=== PATIENT | female | born 1935 | race Caucasian/White ===

== ENCOUNTER 2020-04-24 10:26 | Outpatient (CLI) | payer MEDICARE ==
--- NOTE | 2020-04-24 11:54 | RAD ---
XR Chest Pa Lat STANDARD HISTORY: Weight loss COMPARISON: 08/31/2006 FINDINGS: The heart size is at upper limits of normal. The aorta is tortuous. Mild Chronic parenchyma l changes again seen. The lungs are well expanded without focal areas of consolidation, pneumothorax or pleural effusions. There are surgical clips in the right axilla and upper thorax. The re are compression fractures in the lower thoracic spine with changes of vertebroplasty IMPRESSION: No radiographic evidence of acute cardiopulmonary process.
--- NOTE | 2020-04-24 12:46 | RAD ---
Exam: 3 views thoracic spine HISTORY: Kyphosis. COMPARISON: 07/14/2007. FINDINGS: AP, lateral, and swimmer's view of the thoracic spine are submitted for interpretation. Vertebra plana with previous vertebroplasty at T11 and L1. There is associated kyphosis. Moderate los s of vertebral body height at T12. Limited evaluation of the upper thoracic spine in the lateral projection. IMPRESSION: Kyphosis. Previous vertebra plana and vertebroplasty at T11 and L1. Transcribed Date/Time: 04/24/2020 1:40 PM
--- NOTE | 2020-04-24 12:48 | RAD ---
Exam: 2 views lumbar spine COMPARISON: 07/14/2007. FINDINGS: Five lumbar-type vertebra. Vertebra plana with previous vertebroplasty at T11 and L1. L2-L5 demonstra te preservation of vertebral body height. Moderate loss of disc space height at L3-L4. Grade 1 retrolisthesis of L3 upon L4. Visualized sacrum and bony pelvis are intact. IMPRESSION: 1. Vertebra plana and previous vertebroplasty at T11 and L1. 2. No acute lumbar spine fracture. Transcribed Date/Time: 04/24/2020 1:42 PM
== END 2020-04-24 10:27 | disposition home or self-care (01) ==
LOC: BICRAD 10:26
PROVIDERS: ATTEND Family Medicine
DX: M40.294 Other kyphosis, thoracic region (principal); R63.4 Abnormal weight loss; M40.204 Unspecified kyphosis, thoracic region; Z98.890 Other specified postprocedural states
CPT/HCPCS: 71046; 72072; 72100

== ENCOUNTER 2020-05-11 13:17 | Inpatient (IN) | payer MEDICARE ==
[2020-05-11] MEDS ORDERED: niCARdipine 20MG In NaCl 20 MG/200 ML BAG ONE (13:22)
[2020-05-11 14:01] LABS: #Basophils 0.1 thou/uL (0.0-0.2); #Eosinphils 0.4 thou/uL (0.0-0.7); #Lymphocytes 1.7 thou/uL (1.20-3.40); #Monocytes 1.6 thou/uL (0.11-0.59); #Neutrophils 7.8 thou/uL (1.40-6.50); %Basophils 0.6 % (0.0-1.0); %Eosinophils 3.4 % (0.0-10.0); %Lymphocytes 14.8 % (21.0-51.0); %Monocytes 14.1 % (0.0-10.0); %Neutrophils 67.1 % (42.0-75.0); Hemoglobin 11.4 g/dL (12.0-16.0); Mean Corpuscular HGB CONC 33.3 g/dL (32.0-36.0); Mean Corpuscular Hemoglobin 30.9 pg (27.0-31.0); Mean Corpuscular Volume 92.6 fL (78.0-98.0); Mean Platelet Volume 6.2 fL (7.4-10.4); Platelet Count 444 thou/uL (130-400); RBC Distribution Width 12.7 % (11.5-14.5); Red Blood Cell (RBC) Count 3.69 mill/uL (4.20-5.40); White Blood Cell (WBC) Count 11.6 thou/uL (4.8-10.8)
[2020-05-11 14:07] LABS: PTT 35.6 sec (22.9-36.1); Prothrombin Time 13.6 sec (12.0-14.7)
[2020-05-11 14:21] LABS: ALT (SGPT) 13 U/L (8-55); AST (SGOT) 26 U/L (5-34); Albumin 3.6 g/dL (3.4-4.8); Alkaline Phosphatase 75 U/L (40-110); Anion Gap 15 mmol/L (10-20); BUN (Urea Nitrogen) 17 mg/dL (9.8-20.1); Bilirubin, Total 0.4 mg/dL (0.2-1.2); Calc. Creatinine Clearance 0 mL/min (70-130); Calcium 8.8 mg/dL (7.8-10.44); Carbon Dioxide 24 mmol/L (23-31); Chloride 95 mmol/L (98-107); Globulin 3.3 g/dL (2.4-3.5); Glucose 91 mg/dL (83-110); Potassium 3.9 mmol/L (3.5-5.1); Protein, Total 6.9 g/dL (6.0-8.3); Sodium 130 mmol/L (136-145)
--- NOTE | 2020-05-11 14:31 | CT ---
CT BRAIN: Date: 05-11-2020 PROVIDED CLINICAL HISTORY: Level I stroke alert, left sided weakness. FINDINGS: Comparison is made with 04-07-17. The ventricular system is normal in size and morphology. There is no evidence for intracranial hemorr dayana or mass effect. There is encephalomalacia involving the right temporal and occipital regions. Th ere is extensive chronic microvascular ischemic changes involving the cerebral white matter. The extr acranial soft tissues and osseous structures demonstrate an unremarkable CT appearance other than par anasal sinus mucosal thickening. IMPRESSION: 1. No evidence for intracranial hemorrhage or mass effect. Findings communicated to Dr. Amaya via telephone 1:31 p.m. 05-11-2020. Code CR POS: WADE
[2020-05-11 14:44] LABS: CKMB 1.8 ng/mL (0-6.6)
[2020-05-11] MEDS ORDERED: Aspirin Chewable 81 MG TAB ONE (14:51)
[2020-05-11] MEDS ORDERED: Iopamidol-370 76% 500 ML 1 ML ONE (15:38)
[2020-05-11 15:59] LABS: Bacteria/HPF None Seen HPF (None Seen); Bilirubin Negative (Negative); Blood, Urine 2+ (Negative); Clarity Clear (Clear); Glucose, Urine (Dipstick) Normal (Negative); Ketone, Urine Negative (Negative); Leukocyte Negative Leu/uL (Negative); Nitrite Negative (Negative); Protein, Urine (Dipstick) Negative (Neg-Trace); RBC/HPF 21-50 HPF (0-3); Specific Gravity, Urine 1.011 (1.002-1.036); Squamous Epithelial 0-3 HPF (0-3); Urobilinogen Normal mg/dL (Less than 2); WBC/HPF 0-3 HPF (0-3)
[2020-05-11] MEDS ORDERED: hydrALAZINE 20 MG/ML VIAL SLOW IVP PRN (16:12)
[2020-05-11 17:08] LABS: Troponin I 0.011 ng/mL (< 0.028)
--- NOTE | 2020-05-11 21:32 | HP ---
CHIEF COMPLAINT: Left-sided weakness. HISTORY OF PRESENT ILLNESS: The patient is an 85-year-old female with past medical history of hypertension, TIA, and hypothyroidism, and possible dementia, who presents to the hospital with changes in mental status and left-sided weakness. The patient's daughter who has been keeping the patient states that the patient was up last night around 2:00 a.m., was unable to sleep this morning after eating breakfast. She noticed that her mother was more confused and noticed her left-sided being more weaker compared to her baseline. At this time, she brought her to the hospital for further evaluation. TPA was offered to the patient, however, the family refused. The patient normally resides in [place]. She recently moved here with her daughter after she was in rehab and had multiple falls. According to the daughter, she has never been officially diagnosed with dementia; however, the patient has been requiring 24-hour care in regard to getting up and walking around in the middle of the night and also dressing. She is able to feed herself; however, meals have to be prepared for her. She sometimes uses a walking device, however, has been very unsteady on her feet per the family. PAST MEDICAL HISTORY: History of hypertension, TIA, hypothyroidism, and gout. PAST SURGICAL HISTORY: She has had a right-sided mastectomy in 2004 and tonsillectomy. SOCIAL HISTORY: Denies any alcohol use, drug use, or smoking history. She is a full code. I discussed this with the family. There are 5 siblings and initially a brother was the power of personal injury attorney. However, the patient at this time did not want him to be. The family is investigating in terms of how to go about getting a power of personal injury attorney, I told him that we will get palliative care services for this. FAMILY HISTORY: No history of heart attacks or strokes. REVIEW OF SYSTEMS: Unable to obtain. PHYSICAL EXAMINATION: VITAL SIGNS: Temperature 98.6, respirations 16, pulse 91, blood pressure 124/70, and O2 saturations 94% on room air. GENERAL: She is awake and oriented x3. She is able to tell me where she is in the hospital and what month we are in and what year. The patient, however, is drowsy, however she is easily arousable. CV: S1 and S2 present. Sinus rhythm. LUNGS: Clear to auscultation. No rhonchi or wheezes noted. ABDOMEN: Soft and nontender. Bowel sounds are present x2. EXTREMITIES: She has no edema. Pedal pulses are present x2. Neurovascular bailey, she has some deficits to her left upper extremity and she has a facial droop on her left side. Right lower and left lower extremities, she is able to move them without any difficulties. SKIN: No cuts, lesions, or bruises noted. LABORATORY RESULTS: As of the following; urinalysis indicates no urinary tract infection. Her CT of brain, no evidence of intracranial mass. Her troponins were mildly elevated at 0.03. Sodium of 130, potassium of 3.9, BUN of 17, creatinine of 0.81. Her PT and INR were normal. Her CT angiogram indicated no hemodynamic significant stenosis involving the carotids. 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 No evidence of high-grade stenosis or vascular occlusion. WBCs of 11.6, hemoglobin of 14.4, hematocrit of 34.1, and platelets of 444. EKG appears to have normal sinus. ASSESSMENT AND PLAN: The patient is a very pleasant 85-year-old female, who presents to the hospital with change in mental status. 1. Acute metabolic encephalopathy, most likely secondary to stroke. We will start the patient on aspirin and statin. We will check lipid panel. We will get Neurology. We will get an MRI brain. We will get an echocardiogram. 2. Stroke appears to be acute. She does have significant left-sided deficits. The family refused tPA. We will get an MRI, echo, and Neurology consult. 3. Elevated troponins could be demand related. We were trended and we will get an echocardiogram. 4. Abnormal CTA of possible right hilar mass. We will get a CT with contrast of the chest to further figure out what is going on with this. 5. Deep venous thrombosis prophylaxis. We will put the patient on SCDs and Lovenox. Job ID: [id number]
[2020-05-11] MEDS: Atorvastatin Calcium 40 MG TAB PO SCH (21:33)
[2020-05-11 23:58] LABS: Troponin I 0.015 ng/mL (< 0.028)
[2020-05-12] MEDS ORDERED: Ondansetron ODT 4 MG TAB SL PRN (00:15)
[2020-05-12] MEDS ORDERED: Ondansetron PF 4 MG/2 ML Vial IVP PRN (00:15)
[2020-05-12] MEDS ORDERED: niCARdipine 25 MG in Sodium Chloride 0.9% 250 ML 240 ML IVPB SCH (00:15)
[2020-05-12 01:55] VITALS: BMI 22.0
[2020-05-12 05:22] LABS: Cardiac Risk 2.4 (Less than 4.5)
[2020-05-12] MEDS ORDERED: Lorazepam 2 MG/ML VIAL SLOW IVP PRN (08:42)
[2020-05-12] MEDS: Enoxaparin Sodium 40 MG/0.4 ML SYRINGE SC SCH (09:33)
[2020-05-12] MEDS: Aspirin 81 mg Enteric Coated Tablet PO SCH (09:33)
[2020-05-12 10:10] LABS: Anion Gap 15 mmol/L (10-20); BUN (Urea Nitrogen) 11 mg/dL (9.8-20.1); Calc. Creatinine Clearance 54 mL/min (70-130); Calcium 8.7 mg/dL (7.8-10.44); Carbon Dioxide 24 mmol/L (23-31); Chloride 99 mmol/L (98-107); Glucose 83 mg/dL (83-110); Potassium 3.5 mmol/L (3.5-5.1); Sodium 134 mmol/L (136-145)
--- NOTE | 2020-05-12 10:54 | PDOC.HOSPP ---
- Subjective Encounter Date: 05/12/20 Encounter Time: 08:00 Subjective: No overnight events. Patient able to tell me her name, where she is, the year but not the month. Continues to endorse left-sided weakness. Denies any new symptoms. Denies chest pain, shortness of breath, abdominal pain. Chart and medications reviewed. - Objective Vital Signs & Weight: Vital Signs (12 hours) Temp Pulse Resp BP Pulse Ox 05/12/20 04:16 97.5 F L 62 14 178/83 H 95 Weight Weight 128 lb 8 oz Result Diagrams: 05/11/20 13:47 05/12/20 09:36 Additional Labs: Accuchecks 05/11/20 13:21 POC Glucose 89 Hospitalist ROS - Review of Systems Constitutional: denies: fever, chills Eyes: denies: vision change Respiratory: denies: cough, shortness of breath Cardiovascular: denies: chest pain, palpitations, light headedness Gastrointestinal: denies: nausea, vomiting, abdominal pain, diarrhea Genitourinary: denies: dysuria Neurological: reports: weakness. denies: numbness - Medication Medications: Active Medications Generic Name Dose Route Start Last Admin Trade Name Freq PRN Reason Stop Dose Admin Aspirin 81 mg 05/12/20 09:00 05/12/20 09:33 Aspirin 81 Mg Enteric Coated Tablet PO 81 mg DAILY NAE Administration Atorvastatin Calcium 40 mg 05/11/20 21:00 05/11/20 21:33 Atorvastatin Calcium 40 Mg Tab PO 40 mg HS NAE Administration Enoxaparin Sodium 40 mg 05/12/20 09:00 05/12/20 09:33 Enoxaparin Sodium 40 Mg/0.4 Ml Syringe SC 40 mg 0900 NAE Administration - Exam General Appearance: NAD, awake alert Eye: PERRL, anicteric sclera ENT: normocephalic atraumatic, no oropharyngeal lesions, moist mucosa Neck: supple, symmetric, no JVD, no thyromegaly, no lymphadenopathy, no carotid bruit Heart: RRR, no murmur, no gallops, no rubs, normal peripheral pulses Respiratory: CTAB, no wheezes, no rales, no ronchi, normal chest expansion, no tachypnea, normal percussion Gastrointestinal: soft, non-tender, non-distended, normal bowel sounds, no palpable masses, no hepatomegaly, no splenomegaly, no bruit Extremities: no cyanosis, no clubbing, no edema Skin: normal turgor, no lesions, no rashes Neurological: cranial nerve grossly intact, no new deficit Musculoskeletal - other findings: 4/5 strength LUE, LLE Psychiatric: normal affect, normal behavior, oriented to person, oriented to place Hosp A/P - Plan Acute CVA 85F with hx of HTN, TIA, hypothyroidism, presents for L-sided weakness. CT brain negative. Patient and family offered tpa, but refused. Patient now AOx3, but with persistent L-sided weakness. LUE>LLE. Neurology consulted, MRI pending. Continue ASA/statin Plan -MRI pending -Echocardiogram pending -ASA/statin -q4 neuro checks -PT/OT consult -Neurology recs appreciated Elevated troponin Initial troponin 0.030, repeat 0.011, 0.010, 0.015. No EKG changes, no chest pain. Plan -resolved -continue to monitor for symptoms R hilar mass CTA of neck showed incidental R hilar mass. Radiologist recommended. CT chest with contrast. Pt denies weight loss, fever, night-sweats. Plan -CT chest pending Hypertension Will hold home meds, permissive HTN in setting of acute CVA DVT prophylaxis: Lovenox FULL CODE Case discussed with attending physician, Dr. Salazar.
[2020-05-12 11:12] LABS: #Basophils 0.1 thou/uL (0.0-0.2); #Eosinphils 0.5 thou/uL (0.0-0.7); #Lymphocytes 1.4 thou/uL (1.20-3.40); #Monocytes 1.3 thou/uL (0.11-0.59); #Neutrophils 6.2 thou/uL (1.40-6.50); %Basophils 0.6 % (0.0-1.0); %Eosinophils 5.7 % (0.0-10.0); %Lymphocytes 14.8 % (21.0-51.0); %Monocytes 13.4 % (0.0-10.0); %Neutrophils 65.5 % (42.0-75.0); Hemoglobin 11.5 g/dL (12.0-16.0); Mean Corpuscular HGB CONC 32.7 g/dL (32.0-36.0); Mean Corpuscular Hemoglobin 30.5 pg (27.0-31.0); Mean Corpuscular Volume 93.2 fL (78.0-98.0); Mean Platelet Volume 6.6 fL (7.4-10.4); Platelet Count 453 thou/uL (130-400); RBC Distribution Width 12.8 % (11.5-14.5); Red Blood Cell (RBC) Count 3.77 mill/uL (4.20-5.40); White Blood Cell (WBC) Count 9.4 thou/uL (4.8-10.8)
--- NOTE | 2020-05-12 12:55 | CON ---
NEUROLOGY CONSULTATION DATE OF CONSULTATION: 05/12/2020 REASON FOR CONSULTATION: Left-sided weakness. HISTORY OF PRESENT ILLNESS: Ms. Celeste is an 85-year-old female with medical history significant for hypertension, prior TIA, hypothyroidism, and possible dementia, presented to the hospital with acute change in mental status and left-sided weakness. The patient is extremely somnolent and is unable to provide the history. History is obtained from review of the medical records. Per the patient's daughter, she was unable to sleep in the morning after eating breakfast and she noticed she was more confused than baseline and weaker on the left side. She was brought to the hospital for further evaluation. TPA was offered to the patient, however, the family refused because of side effects. The patient normally resides in [place], but has recently moved with her daughter after she was in rehab due to multiple falls. According to the daughter, she has ongoing memory issues, but never been formally diagnosed as dementia. She was able to feed herself and uses a walking device, however, very unsteady on her feet. The daughter does admit that 2 of her family members which have COVID, but denies any shortness of breath, nausea, vomiting, headache, chest pain, abdominal pain associated with the episode. REVIEW OF SYSTEMS: All systems reviewed per daughter, but pertinent positives and negatives mentioned in the HPI. PAST MEDICAL HISTORY: Hypertension, TIA, hypothyroidism, gout. PAST SURGICAL HISTORY: Right-sided mastectomy in 2004, tonsillectomy. SOCIAL HISTORY: There is no documented history of alcohol or illegal drug abuse. FAMILY HISTORY: No family history of coronary artery disease or stroke. Allergies: Penicillin, sulfa drugs prednisone Vital Signs & Weight: Vital Signs (12 hours) Temp Pulse Resp BP Pulse Ox 05/12/20 04:16 97.5 F L 62 14 178/83 H 95 Weight Weight 128 lb 8 oz Additional Labs: Accuchecks 05/11/20 13:21 POC Glucose 89 Active Medications Generic Name Dose Route Start Last Admin Trade Name Daniel PRN Reason Stop Dose Admin Aspirin 81 mg 05/12/20 09:00 05/12/20 09:33 Aspirin 81 Mg Enteric Coated Tablet PO 81 mg DAILY NAE Administration Atorvastatin Calcium 40 mg 05/11/20 21:00 05/11/20 21:33 Atorvastatin Calcium 40 Mg Tab PO 40 mg HS NAE Administration Enoxaparin Sodium 40 mg 05/12/20 09:00 05/12/20 09:33 Enoxaparin Sodium 40 Mg/0.4 Ml Syringe SC 40 mg 0900 NAE Administration PHYSICAL EXAMINATION: General Appearance: NAD, awake alert Eye: PERRL, anicteric sclera ENT: normocephalic atraumatic, no oropharyngeal lesions, moist mucosa Neck: supple, symmetric, no JVD, no thyromegaly, no lymphadenopathy, no carotid bruit Heart: RRR, no murmur, no gallops, no rubs, normal peripheral pulses Respiratory: CTAB, no wheezes, no rales, no ronchi, normal chest expansion, no tachypnea, normal percussion Gastrointestinal: soft, non-tender, non-distended, normal bowel sounds, no palpable masses, no hepatomegaly, no splenomegaly, no bruit Extremities: no cyanosis, no clubbing, no edema Skin: normal turgor, no lesions, no rashes Neurological: Mental status; the patient is extremely somnolent, but knows her name She follows commands intermittently. Cranial nerves, pupils 4 mm, round and reactive to light. Face symmetric. Tongue midline. Moves neck in both direction. Hearing seems to be intact. Motor, muscle tone and bulk are normal. No spontaneous movement of extremities seen. Sensory, withdraws all 4 extremities to nailbed pressure right greater than left. Cerebellar, did not cooperate with the testing because of increased somnolence. Gait deferred due to the patient's safety reasons. DATA REVIEWED: I reviewed the CT scan which did not reveal any acute intracranial pathology. CT angiogram did not show hemodynamically significant stenosis. EKG showed normal sinus rhythm. ASSESSMENT AND PLAN: Ms. Celeste is a pleasant 85-year-old female, who has presented to the hospital due to altered mental status and left-sided weakness. Consider MRI of the brain to rule out acute intracranial pathology. 2D echo to evaluate for left ventricular ejection fraction. Neuro checks every 2 hours. Continue aspirin and high-intensity statin for secondary stroke prevention. Check lipid panel, hemoglobin A1c, and TSH. Telemetry to rule out arrhythmias. Consider n.p.o. until cleared by Speech because of increased somnolence. PT/OT when stable. Permissive control of blood pressure at this time. Strict control of blood glucose. Continue home medications. Continue medical management per prior primary team. DVT prophylaxis. We will continue to follow. Thank you for the consult. Job ID: [id number] MTDD
[2020-05-12 13:02] LABS: SARS-CoV-2 MS2 Positive; SARS-CoV-2 N Gene Negative; SARS-CoV-2 S Gene Negative; SARS-CoV-2 by NAA Not Detected (NotDetected); SARS-CoV-2 orf1ab Negative
[2020-05-12] MEDS ORDERED: Iopamidol-370 76% 500 ML 1 ML ONE (13:56)
[2020-05-12] MEDS ORDERED: Labetalol HCl 100 MG/20 ML VIAL SLOW IVP PRN (16:00)
--- NOTE | 2020-05-12 16:11 | CT ---
CT angiogram of the head and neck: 05/11/2020 COMPARISON: None HISTORY: Left-sided weakness TECHNIQUE: Axial CT imaging at 1.25 mm intervals from the lung apices through the vertex with IV cont rast using CT angiogram protocol. Coronal and sagittal 3-D reformatted imaging obtained. FINDINGS: There is an incompletely imaged soft tissue mass in the region of the right hilum measuring 1.8 cm. Imaged lung apices appear grossly unremarkable otherwise. There is atherosclerotic calcification of the aortic arch. The origin of the left subclavian artery, left vertebral artery, left common carotid artery, innominate artery, right subclavian artery, right common carotid artery, and right vertebral artery demonstrate no hemodynamically significant st enosis. On the basis of NASCET criteria there is no hemodynamically significant stenosis involving the common carotid artery or the internal carotid artery on either side. The internal carotid artery is tortuous bilaterally demonstrating a medialized retropharyngeal course. Mild calcified plaque noted within the proximal left internal carotid artery and the distal right com mon carotid artery. The vertebral arteries are patent bilaterally. The left vertebral artery is dominant. The basilar artery is patent. The posterior cerebral artery on the left is patent with mild distal st enosis. The right posterior cerebral artery is occluded. There is prominent stenosis involving the proximal aspect of the right superior cerebellar artery. 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 The M1 segment and the MCA bifurcation appear grossly unremarkable bilaterally. Distal branches of th e middle cerebral artery appear grossly unremarkable bilaterally. Distal MELISSA branches appear patent. The A1 segment is unremarkable. There is mucosal thickening involving the right frontal sinus, bilateral ethmoid air cells, bilateral maxillary sinuses, and the left sphenoid sinus. The retroantral fat, parapharyngeal fat, hyoid bone, thyroid cartilage, cricoid cartilage, thyroid gl and, parotid glands, and submandibular glands appear grossly unremarkable. No lymphadenopathy is appreciated within the neck. Prominent multilevel degenerative change noted within the cervical spine with multilevel disc space n arrowing and degenerative endplate change as well as multilevel posterior osteophyte and bilateral facet hypertrophy. IMPRESSION: No hemodynamically significant stenosis on the basis of NASCET criteria involving the com mon or internal carotid artery on either side. Findings suggesting a partially imaged right hilar mass or right hilar adenopathy for which follow-up chest CT is advised. 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 No evidence for high-grade stenosis or vascular occlusion involving the middle cerebral or anterior c erebral arteries. Results called to Dr. Amaya at 2:00 PM 05/11/2020 Transcribed Date/Time: 05/12/2020 4:11 PM
--- NOTE | 2020-05-12 17:02 | MRI ---
BRAIN MRI WITHOUT IV CONTRAST: Date: 05/12/2020 HISTORY: Stroke, altered mental status. Left-sided weakness. COMPARISON: Brain CT, 05/11/2020. FINDINGS: Exam is very severely limited by motion artifact. There is marked atrophy and chronic white matter ischemic changes with some bilateral lacunar infarct s, as well as some old infarction changes in the right occipital lobe. There is evidence for acute in farct with hyperintense signal on diffusion images and low signal on ADC map images involving an appr oximately 2.0 cm diameter area in the right thalamus and a very small punctate focus in the left caud ate nucleus adjacent to the left frontal horn. IMPRESSION: Evidence for acute infarction changes involving the right thalamus and a small focus in the left caud ate nucleus. Severe bilateral atrophy and chronic white matter ischemic changes with old right occipi toan infarct changes and some lacunar infarct changes bilaterally. No significant mass effect. No evid ence for acute hemorrhage. Exam severely limited by marked patient motion artifact. POS: RRE
--- NOTE | 2020-05-12 19:54 | CT ---
Chest CT: 05/12/2020 COMPARISON: None HISTORY: Abnormality seen in the region of the right hilum on prior study TECHNIQUE: Axial CT imaging at 5 mm intervals from thoracic inlet through upper abdomen with IV contr ast. Coronal and sagittal reformatted imaging obtained. FINDINGS: Imaged upper abdomen demonstrates a small cyst within the left lobe of the liver on axial i mage 56 measuring approximately 1.3 cm. There is a large hiatal hernia. There is extensive atherosclerotic calcification of the abdominal aorta. No pleural, pericardial, or mediastinal fluid is noted. No axillary lymphadenopathy. Postoperative clips are seen in the right axillary region. There is scat tered atherosclerotic calcification of the aortic arch in the descending thoracic aorta. There is an enlarged lymph node in the right hilum measuring 1.6 cm. No mediastinal or left hilar claudia nopathy. No pneumothorax is evident. No discrete pulmonary parenchymal mass lesion/nodule noted on either side. Review of the osseous structures demonstrates age indeterminant severe anterior wedge compression def ormities at T11 and L1. Both fractures demonstrate a burst configuration with a degree of osseous retropulsion. IMPRESSION: Nonspecific enlarged right hilar lymph node. This could be on the basis of malignancy. Ag e indeterminant severe burst fractures at T11 and L1. Additional incidental findings as detailed above.
[2020-05-12] MEDS: Atorvastatin Calcium 40 MG TAB PO SCH (21:32)
[2020-05-13 04:28] LABS: #Basophils 0.1 thou/uL (0.0-0.2); #Eosinphils 0.1 thou/uL (0.0-0.7); #Lymphocytes 1.6 thou/uL (1.20-3.40); #Monocytes 1.5 thou/uL (0.11-0.59); #Neutrophils 8.3 thou/uL (1.40-6.50); %Basophils 0.6 % (0.0-1.0); %Eosinophils 0.8 % (0.0-10.0); %Lymphocytes 13.6 % (21.0-51.0); %Monocytes 12.7 % (0.0-10.0); %Neutrophils 72.2 % (42.0-75.0); Hemoglobin 12.2 g/dL (12.0-16.0); Mean Corpuscular HGB CONC 33.1 g/dL (32.0-36.0); Mean Corpuscular Hemoglobin 30.2 pg (27.0-31.0); Mean Corpuscular Volume 91.4 fL (78.0-98.0); Mean Platelet Volume 6.3 fL (7.4-10.4); Platelet Count 501 thou/uL (130-400); RBC Distribution Width 12.6 % (11.5-14.5); Red Blood Cell (RBC) Count 4.04 mill/uL (4.20-5.40); White Blood Cell (WBC) Count 11.6 thou/uL (4.8-10.8)
[2020-05-13 04:48] LABS: Anion Gap 16 mmol/L (10-20); BUN (Urea Nitrogen) 12 mg/dL (9.8-20.1); Calc. Creatinine Clearance 53 mL/min (70-130); Calcium 8.5 mg/dL (7.8-10.44); Carbon Dioxide 24 mmol/L (23-31); Chloride 96 mmol/L (98-107); Glucose 104 mg/dL (83-110); Potassium 3.3 mmol/L (3.5-5.1); Sodium 133 mmol/L (136-145)
[2020-05-13] MEDS ORDERED: Potassium Phosphate 30 MMOL in Sodium Chloride 0.9% 250 ML 250 ML IVPB SCH (07:45)
--- NOTE | 2020-05-13 09:17 | PDOC.HOSPP ---
- Subjective Encounter Date: 05/13/20 Encounter Time: 07:00 Subjective: No overnight events. Patient reports her left-sided weakness feels improved from yesterday. Denies any new deficits. Endorses right hip pain, feels as though her hip was twisted or injured while moving. Denies any numbness, new weakness. Denies chest pain, shortness of breath, abdominal pain. Chart medications reviewed. - Objective Vital Signs & Weight: Vital Signs (12 hours) Temp Pulse Resp BP Pulse Ox 05/13/20 07:52 97.5 F L 97 16 198/119 H 96 05/13/20 03:47 97.6 F 76 14 162/95 H 96 05/13/20 00:00 98.6 F 91 14 164/97 H 96 Weight Admit Weight 128 lb 8 oz Weight 128 lb 8 oz I&O: 05/12/20 05/13/20 05/14/20 06:59 06:59 06:59 Intake Total 960 Balance 960 Result Diagrams: 05/13/20 04:07 05/13/20 04:07 Hospitalist ROS - Review of Systems Constitutional: denies: fever, chills, sweats Eyes: denies: vision change ENT: denies: nose congestion, throat pain Respiratory: denies: cough, dry, shortness of breath, hemoptysis, SOB with excertion, pleuritic pain, sputum, wheezing, other Cardiovascular: denies: chest pain, palpitations, orthopnea, paroxysmal noc. dyspnea, edema, light headedness, other Gastrointestinal: denies: nausea, vomiting, abdominal pain, diarrhea, constipation, melena, hematochezia, other Genitourinary: denies: dysuria, frequency, incontinence, hematuria, retention, other Musculoskeletal: reports: other (Right hip pain). denies: neck pain, shoulder pain, arm pain, back pain, hand pain, leg pain, foot pain Skin: denies: rash, lesions, lashay, bruising, other Neurological: reports: weakness. denies: numbness, incoordination, change in speech, confusion, seizures, other - Medication Medications: Active Medications Generic Name Dose Route Start Last Admin Trade Name Freq PRN Reason Stop Dose Admin Aspirin 81 mg 05/12/20 09:00 05/12/20 09:33 Aspirin 81 Mg Enteric Coated Tablet PO 81 mg DAILY NAE Administration Atorvastatin Calcium 40 mg 05/11/20 21:00 05/12/20 21:32 Atorvastatin Calcium 40 Mg Tab PO Not Given HS [facility] Enoxaparin Sodium 40 mg 05/12/20 09:00 05/12/20 09:33 Enoxaparin Sodium 40 Mg/0.4 Ml Syringe SC 40 mg 0900 NAE Administration Lorazepam 1 mg 05/12/20 08:42 05/12/20 15:40 Lorazepam 2 Mg/Ml Vial SLOW IVP 1 mg PRN PRN Administration Anxiety/Agitation - Exam General Appearance: NAD, awake alert Eye: PERRL, anicteric sclera ENT: normocephalic atraumatic, no oropharyngeal lesions, moist mucosa Neck: supple, symmetric, no JVD, no thyromegaly, no lymphadenopathy, no carotid bruit Heart: RRR, no murmur, no gallops, no rubs, normal peripheral pulses Respiratory: CTAB, no wheezes, no rales, no ronchi, normal chest expansion, no tachypnea, normal percussion Gastrointestinal: soft, non-tender, non-distended, normal bowel sounds, no palpable masses, no hepatomegaly, no splenomegaly, no bruit Extremities: no cyanosis, no clubbing, no edema Skin: normal turgor, no lesions, no rashes Neurological: no new deficit Neurological - other findings: 4-5 strength to left upper and lower extremity Musculoskeletal - other findings: Tender to palpation over right hip. No obvious bruising or deformity. Psychiatric: normal affect, normal behavior, A&O x 3 Hosp A/P - Plan Acute CVA 85F with hx of HTN, TIA, hypothyroidism, presents for L-sided weakness. CT brain negative. CTA neck showed no hemodynamically significant stenosis. Patient and family offered tpa, but refused. Patient now AOx3, but with persistent L-sided weakness. LUE>LLE. Neurology consulted and following. MRI showed acute CVA. Continue ASA/statin. Plan -MRI showed acute CVA -Echocardiogram pending -EEG pending -ASA/statin -q4 neuro checks -PT/OT consult -Neurology recs appreciated Elevated troponin Initial troponin 0.030, repeat 0.011, 0.010, 0.015. No EKG changes, no chest pain. Plan -resolved -continue to monitor for symptoms R hilar mass CTA of neck showed incidental R hilar mass. Radiologist recommended. CT chest with contrast. Pt denies weight loss, fever, night-sweats. CT chest with contrast showed enlarged lymph node in the R hilum measuring 1.6 cm concerning for malignancy. Age indeterminate incidental burst fractures at T11 and L1. Plan -Outpatient follow up with oncology R hip pain Patient complains of significant R hip pain. Will obtain plain film to check for fx as pt at risk for pathologic fxs. Hypokalemia Potassium 3.3 this am. Will replete and monitor as needed. Hypertension Will hold home meds, permissive HTN in setting of acute CVA DVT prophylaxis: Lovenox FULL CODE Case discussed with attending physician, Dr. Salazar.
[2020-05-13] MEDS: Aspirin 81 mg Enteric Coated Tablet PO SCH (09:32)
[2020-05-13] MEDS: Enoxaparin Sodium 40 MG/0.4 ML SYRINGE SC SCH (09:32)
--- NOTE | 2020-05-13 11:33 | RAD ---
Exam:Right hip 2 views HISTORY: Pain. Evaluate for fracture. COMPARISON: None FINDINGS: Mild bone demineralization. Remote injury involving the right inferior pubic ramus. No frac ture with regards visualized bony pelvis. Contour the femoral head is maintained. No fracture. Moderate degenerative changes involving the right hip. IMPRESSION: No fracture. Moderate degenerative change in the right hip.
[2020-05-13] MEDS: Acetaminophen 325 MG TAB PO PRN ×2 (12:17→20:00)
--- NOTE | 2020-05-13 13:41 | PDOC.EEG ---
Neurology EEG Report - Report Report: This EEG was performed using 24 channel Empiribox video digital EEG machine with 24 disc electrodes. This was an extended 2 hours 3 minutes of EEG recording. Digital analysis of the EEG was done for Kenan and seizure detection which revealed no abnormalities. Background: The posterior background rhythm is not observed Photic stimulation: No response seen with photic stimulation. Hyperventilation: Not performed. Sleep: No stage change observed EEG diagnosis: Intermittent irregular theta activity seen throughout the recording . Absence of posterior background rhythm Clinical interpretation: This EEG is consistent with moderate generalized nonspecific cerebral dysfuncti on.
--- NOTE | 2020-05-13 13:44 | PDOC.NEUPN ---
- Subjective Encounter Date: 05/13/20 Subjective: Ms. Norton is doing better today. She is alert and oriented to person and place. MRI of the brain consistent with acute infarction. - Objective Vital Signs & Weight: Vital Signs (12 hours) Temp Pulse Resp BP Pulse Ox 05/13/20 11:43 97.4 F L 87 16 166/101 H 96 05/13/20 09:32 97 05/13/20 08:00 96 05/13/20 07:52 97.5 F L 97 16 198/119 H 96 05/13/20 03:47 97.6 F 76 14 162/95 H 96 Weight Admit Weight 128 lb 8 oz Weight 128 lb 8 oz I&O: 05/12/20 05/13/20 05/14/20 06:59 06:59 06:59 Intake Total 960 Balance 960 Result Diagrams: 05/13/20 04:07 05/13/20 04:07 Radiology Reviewed by me: Yes EKG Reviewed by me: Yes ROS - Review of Systems ROS unobtainable: due to mental status - Medication Medications: Active Medications Generic Name Dose Route Start Last Admin Trade Name Freq PRN Reason Stop Dose Admin Acetaminophen 650 mg 05/13/20 11:51 05/13/20 12:17 Acetaminophen 325 Mg Tab PO 650 mg Q6H PRN Administration Fever/Mild Pain (1-3) Aspirin 81 mg 05/12/20 09:00 05/13/20 09:32 Aspirin 81 Mg Enteric Coated Tablet PO 81 mg DAILY NAE Administration Atorvastatin Calcium 40 mg 05/11/20 21:00 05/12/20 21:32 Atorvastatin Calcium 40 Mg Tab PO Not Given HS NAE Enoxaparin Sodium 40 mg 05/12/20 09:00 05/13/20 09:32 Enoxaparin Sodium 40 Mg/0.4 Ml Syringe SC 40 mg 0900 NAE Administration Potassium Phosphate 30 mmol/ 260 mls @ 43.333 mls/hr 05/13/20 07:45 05/13/20 09:32 Sodium Chloride IVPB 05/13/20 15:00 260 mls NOW NAE Administration Labetalol HCl 20 mg 05/12/20 16:00 05/13/20 09:32 Labetalol Hcl 100 Mg/20 Ml Vial SLOW IVP 20 mg Q1H PRN Administration BP > 220/110 Lorazepam 1 mg 05/12/20 08:42 11/02/20 15:40 Lorazepam 2 Mg/Ml Vial SLOW IVP 1 mg PRN PRN Administration Anxiety/Agitation - Exam General Appearance: awake alert Eye: PERRL ENT: normocephalic atraumatic Neck: supple Respiratory: CTAB Cardiovascular: RRR Gastrointestinal: soft Extremities: no cyanosis Skin: normal turgor Neurological: facial droop, hemiplegia Neurological - other findings: Left hemiparesis Musculoskeletal: no muscle wasting PSYCH: normal affect, normal behavior, oriented to person, oriented to place Results - Labs Result Diagrams: 05/13/20 04:07 05/13/20 04:07 Lab results: WBC 11.6 thou/uL (4.8-10.8) H 05/13/20 04:07 Hgb 12.2 g/dL (12.0-16.0) 05/13/20 04:07 Hct 36.9 % (36.0-47.0) 05/13/20 04:07 MCV 91.4 fL (78.0-98.0) 05/13/20 04:07 Plt Count 501 thou/uL (130-400) H 05/13/20 04:07 Neutrophils % 72.2 % (42.0-75.0) 05/13/20 04:07 Sodium 133 mmol/L (136-145) L 05/13/20 04:07 Potassium 3.3 mmol/L (3.5-5.1) L 05/13/20 04:07 Chloride 96 mmol/L (98-107) L 05/13/20 04:07 Carbon Dioxide 24 mmol/L (23-31) 05/13/20 04:07 BUN 12 mg/dL (9.8-20.1) 05/13/20 04:07 Creatinine 0.72 mg/dL (0.6-1.1) 05/13/20 04:07 Glucose 104 mg/dL (83-110) 05/13/20 04:07 Calcium 8.5 mg/dL (7.8-10.44) 05/13/20 04:07 Total Bilirubin 0.4 mg/dL (0.2-1.2) 05/11/20 13:47 AST 26 U/L (5-34) 05/11/20 13:47 ALT 13 U/L (8-55) 05/11/20 13:47 Alkaline Phosphatase 75 U/L (40-110) 05/11/20 13:47 CK-MB (CK-2) 1.8 ng/mL (0-6.6) 05/11/20 13:47 Troponin I 0.015 ng/mL (< 0.028) 05/11/20 23:26 Serum Total Protein 6.9 g/dL (6.0-8.3) 05/11/20 13:47 Albumin 3.6 g/dL (3.4-4.8) 05/11/20 13:47 Urine Ketones Negative mg/dL (Negative) 05/11/20 15:15 Urine Blood 2+ (Negative) A 05/11/20 15:15 Urine Nitrite Negative (Negative) 05/11/20 15:15 Ur Leukocyte Esterase Negative Jennifer/uL (Negative) 05/11/20 15:15 Urine RBC 21-50 HPF (0-3) A 05/11/20 15:15 Urine WBC 0-3 HPF (0-3) 05/11/20 15:15 Ur Squamous Epith Cells 0-3 HPF (0-3) 05/11/20 15:15 Urine Bacteria None Seen HPF (None Seen) 05/11/20 15:15 - Radiology Interpretation MRI - head Additional Comment: MRI of the brain reviewed and was consistent with acute infarction in the right thalamus and in the left caudate region. PN A/P (1) Acute CVA (cerebrovascular accident) Code(s): I63.9 - CEREBRAL INFARCTION, UNSPECIFIED Status: Acute - Plan Daily Plan: PT/OT, speech therapy, DVT proph w/SCDs Ms. Norton is a 85-year-old female who presented with altered mental status a nd acute onset left-sided weakness. Weakness improved and she is much more alert today. MRI of the brain reviewed which was consistent with acute infarction in the right thalamus and also in the left caudate. EEG reviewed which was negative for seizure activity. CTA of the head and neck did not reveal hemodynamically significant stenosis. Telemetry to rule out arrhythmias. 2D echo to evaluate for left ventricular ejection fraction. Continue aspirin and high intensity statin for secondary stroke prevention. Continue home medications. Permissive control of blood pressure at this time. Strict control of blood glucose. Continue medical management per primary team. PT/OT/speech. Plan discussed in detail with the patient
[2020-05-13] MEDS: Atorvastatin Calcium 40 MG TAB PO SCH ×2 (20:01→20:07)
[2020-05-13] MEDS ORDERED: traMADol HCl 50 MG TAB PO SCH (21:00)
[2020-05-14 04:34] LABS: #Basophils 0.1 thou/uL (0.0-0.2); #Eosinphils 0.6 thou/uL (0.0-0.7); #Lymphocytes 2.3 thou/uL (1.20-3.40); #Monocytes 1.5 thou/uL (0.11-0.59); #Neutrophils 7.7 thou/uL (1.40-6.50); %Basophils 0.6 % (0.0-1.0); %Eosinophils 4.7 % (0.0-10.0); %Lymphocytes 18.7 % (21.0-51.0); %Monocytes 12.6 % (0.0-10.0); %Neutrophils 63.5 % (42.0-75.0); Hemoglobin 12.1 g/dL (12.0-16.0); Mean Corpuscular HGB CONC 33.7 g/dL (32.0-36.0); Mean Corpuscular Hemoglobin 30.9 pg (27.0-31.0); Mean Corpuscular Volume 91.6 fL (78.0-98.0); Mean Platelet Volume 6.4 fL (7.4-10.4); Platelet Count 494 thou/uL (130-400); RBC Distribution Width 12.7 % (11.5-14.5); Red Blood Cell (RBC) Count 3.92 mill/uL (4.20-5.40); White Blood Cell (WBC) Count 12.1 thou/uL (4.8-10.8)
[2020-05-14 04:56] LABS: Anion Gap 16 mmol/L (10-20); BUN (Urea Nitrogen) 15 mg/dL (9.8-20.1); Calc. Creatinine Clearance 50 mL/min (70-130); Calcium 8.2 mg/dL (7.8-10.44); Carbon Dioxide 24 mmol/L (23-31); Chloride 94 mmol/L (98-107); Glucose 97 mg/dL (83-110); Sodium 130 mmol/L (136-145)
[2020-05-14] MEDS: Acetaminophen 325 MG TAB PO PRN ×3 (06:02→20:49)
--- NOTE | 2020-05-14 09:35 | PDOC.HOSPP ---
- Subjective Encounter Date: 05/14/20 Encounter Time: 08:32 Subjective: Patient complaining of posterior neck pain at the base of her skull. States it is sore. Currently sleeping with her neck hyperextended. States she feels sleepy and did not get much rest yesterday. No headaches or dizziness. Has been up and walking to the bathroom without any lightheadedness or other difficulty. Given a dose of Tramadol last night. CTA head/neck done at initial presentation mentions multilevel degenerative change within the cspine and multilevel disc space narrowing and degenerative endplate change as well as multilevel posterior osteophyte and bilateral facet hypertrophy. - Objective Vital Signs & Weight: Vital Signs (12 hours) Temp Pulse Resp BP Pulse Ox 05/14/20 07:39 97.6 F 66 16 181/98 H 95 05/14/20 04:20 97.3 F L 73 14 165/93 H 99 05/14/20 00:30 97.6 F 79 15 182/100 H 97 Weight Admit Weight 128 lb 8 oz Weight 128 lb 8 oz I&O: 05/13/20 05/14/20 05/15/20 06:59 06:59 06:59 Intake Total 960 200 Balance 960 200 Result Diagrams: 05/14/20 04:07 05/14/20 04:07 Hospitalist ROS - Review of Systems Constitutional: denies: fever, chills, sweats, weakness, malaise, other Eyes: denies: pain, vision change, conjunctivae inflammation, eyelid inflammation, redness, other ENT: denies: ear pain, ear discharge, nose pain, nose discharge, nose congestion, mouth pain, mouth swelling, throat pain, throat swelling, other Respiratory: denies: cough, dry, shortness of breath, hemoptysis, SOB with excertion, pleuritic pain, sputum, wheezing, other Cardiovascular: denies: chest pain, palpitations, orthopnea, paroxysmal noc. dyspnea, edema, light headedness, other Gastrointestinal: denies: nausea, vomiting, abdominal pain, diarrhea, constipat ion, melena, hematochezia, other Musculoskeletal: reports: neck pain. denies: shoulder pain, arm pain, back pain, hand pain, leg pain, foot pain, other Skin: denies: rash, lesions, lashay, bruising, other - Medication Medications: Active Medications Generic Name Dose Route Start Last Admin Trade Name Freq PRN Reason Stop Dose Admin Acetaminophen 650 mg 05/13/20 11:51 05/14/20 06:02 Acetaminophen 325 Mg Tab PO 650 mg Q6H PRN Administration Fever/Mild Pain (1-3) Aspirin 81 mg 05/12/20 09:00 05/13/20 09:32 Aspirin 81 Mg Enteric Coated Tablet PO 81 mg DAILY NAE Administration Atorvastatin Calcium 40 mg 05/11/20 21:00 05/13/20 20:07 Atorvastatin Calcium 40 Mg Tab PO Not Given HS NAE Enoxaparin Sodium 40 mg 05/12/20 09:00 05/13/20 09:32 Enoxaparin Sodium 40 Mg/0.4 Ml Syringe SC 40 mg 0900 NAE Administration Labetalol HCl 20 mg 05/12/20 16:00 05/13/20 09:32 Labetalol Hcl 100 Mg/20 Ml Vial SLOW IVP 20 mg Q1H PRN Administration BP > 220/110 Lorazepam 1 mg 05/12/20 08:42 05/12/20 15:40 Lorazepam 2 Mg/Ml Vial SLOW IVP 1 mg PRN PRN Administration Anxiety/Agitation - Exam General - other findings: Patient is drowsy but answering quetsions and fol lowing commands Eye: PERRL ENT: normocephalic atraumatic, no oropharyngeal lesions, dry oral mucosa Neck: supple (Found sleeping with neck hyperextended) Neck - other findings: mild discomfort with palpation of posterior neck, ROM limited due to pain Heart: RRR, normal peripheral pulses Respiratory: CTAB, normal chest expansion Gastrointestinal: soft, non-tender, non-distended, normal bowel sounds, no guarding, no rigidity Extremities: no edema Skin: normal turgor, no rashes Neurological: cranial nerve grossly intact, normal sensation to touch Musculoskeletal: normal tone, normal strength, no muscle wasting Psychiatric: normal affect, normal behavior, A&O x 3 Hosp A/P (1) Acute CVA (cerebrovascular accident) Code(s): I63.9 - CEREBRAL INFARCTION, UNSPECIFIED Status: Acute Plan: MRI Brain confirmed acute infarction of right thalamus and also left caudate. Negative EEG. 2D Echo: 60-65%, mild MR, mild TR. Continue statin and ASA. Permissive HTN as per neuro recommendations. PT/OT consulted. Further management as per Dr. Schuler. (2) Neck pain Code(s): M54.2 - CERVICALGIA Status: Acute Plan: Likely due to sleeping with neck hyperextended and underlying degenerative disc problems. Tylenol for pain. Lidocaine patch ordered. PT to help with ROM (3) Electrolyte imbalance Code(s): E87.8 - OTH DISORDERS OF ELECTROLYTE AND FLUID BALANCE, NEC Status: Acute Plan: Check Mg+ Replace electrolytes as necessary. (4) Hilar mass Code(s): R91.8 - OTHER NONSPECIFIC ABNORMAL FINDING OF LUNG FIELD Status: Acute Plan: Right hilar mass found incidentally on CTA imaging. Outpatient follow-up for further work-up given concern for possible malignancy. (5) Essential hypertension Code(s): I10 - ESSENTIAL (PRIMARY) HYPERTENSION Status: Chronic Plan: Monitor BP. Permissive HTN given acute CVA. - Plan PT/OT, DVT proph w/lovenox
[2020-05-14] MEDS: Sodium Chloride 0.9% 1,000 ML IV SCH (09:43)
[2020-05-14] MEDS: Enoxaparin Sodium 40 MG/0.4 ML SYRINGE SC SCH (09:43)
[2020-05-14] MEDS: Aspirin 81 mg Enteric Coated Tablet PO SCH (09:43)
[2020-05-14] MEDS ORDERED: Lidocaine 5% Patch TD SCH (09:45)
[2020-05-14] MEDS ORDERED: Amlodipine 5 MG TAB PO SCH (12:00)
--- NOTE | 2020-05-14 13:03 | PDOC.NEUPN ---
- Subjective Encounter Date: 05/14/20 Subjective: Errol is very somnolent but opens eyes to verbal stimuli. She is oriented to person and place. - Objective Vital Signs & Weight: Vital Signs (12 hours) Temp Pulse Pulse Resp BP BP Pulse Ox 05/14/20 11:44 97.9 F 72 14 171/106 H 98 05/14/20 09:23 68 188/106 H 05/14/20 07:39 97.6 F 66 16 181/98 H 95 05/14/20 04:20 97.3 F L 73 14 165/93 H 99 Weight Admit Weight 128 lb 8 oz Weight 128 lb 8 oz I&O: 05/13/20 05/14/20 05/15/20 06:59 06:59 06:59 Intake Total 960 200 214 Balance 960 200 214 Result Diagrams: 05/14/20 04:07 05/14/20 04:07 Radiology Reviewed by me: Yes EKG Reviewed by me: Yes ROS - Review of Systems ROS unobtainable: due to mental status (Somnolence) - Medication Medications: Active Medications Generic Name Dose Route Start Last Admin Trade Name Freq PRN Reason Stop Dose Admin Acetaminophen 650 mg 05/13/20 11:51 05/14/20 12:54 Acetaminophen 325 Mg Tab PO 650 mg Q6H PRN Administration Fever/Mild Pain (1-3) Amlodipine Besylate 2.5 mg 05/14/20 12:00 05/14/20 11:58 Amlodipine 5 Mg Tab PO 05/14/20 14:00 2.5 mg NOW NAE Administration Aspirin 81 mg 05/12/20 09:00 05/14/20 09:43 Aspirin 81 Mg Enteric Coated Tablet PO 81 mg DAILY NAE Administration Atorvastatin Calcium 40 mg 05/11/20 21:00 05/13/20 20:07 Atorvastatin Calcium 40 Mg Tab PO Not Given HS NAE Enoxaparin Sodium 40 mg 05/12/20 09:00 05/14/20 09:43 Enoxaparin Sodium 40 Mg/0.4 Ml Syringe SC 40 mg 0900 NAE Administration Sodium Chloride 1,000 mls @ 45 mls/hr 05/14/20 09:30 05/14/20 09:43 Normal Saline 0.9% IV 1,000 mls .[id number] NAE Administration Magnesium Sulfate 1 gm/ Sodium 102 mls @ 100 mls/hr 05/14/20 09:30 05/14/20 10:51 Chloride IVPB 05/14/20 14:00 102 mls NOW NAE Administration Labetalol HCl 20 mg 05/12/20 16:00 05/13/20 09:32 Labetalol Hcl 100 Mg/20 Ml Vial SLOW IVP 20 mg Q1H PRN Administration SBP Greater Than 180 Lidocaine 1 patch 05/14/20 09:45 05/14/20 09:43 Lidocaine 5% Patch TD 05/14/20 21:00 1 patch NOW NAE Administration Lorazepam 1 mg 05/12/20 08:42 05/12/20 15:40 Lorazepam 2 Mg/Ml Vial SLOW IVP 1 mg PRN PRN Administration Anxiety/Agitation - Exam General Appearance: NAD Eye: PERRL ENT: normocephalic atraumatic Neck: supple Respiratory: CTAB Cardiovascular: RRR Gastrointestinal: soft Extremities: no cyanosis Skin: normal turgor Neurological: no new deficit, hemiplegia, speech deficit Musculoskeletal: normal tone, no muscle wasting PSYCH: normal affect, normal behavior, oriented to person, oriented to place Results - Labs Result Diagrams: 05/14/20 04:07 05/14/20 04:07 Lab results: WBC 12.1 thou/uL (4.8-10.8) H 05/14/20 04:07 Hgb 12.1 g/dL (12.0-16.0) 05/14/20 04:07 Hct 35.9 % (36.0-47.0) L 05/14/20 04:07 MCV 91.6 fL (78.0-98.0) 05/14/20 04:07 Plt Count 494 thou/uL (130-400) H 05/14/20 04:07 Neutrophils % 63.5 % (42.0-75.0) 05/14/20 04:07 Sodium 130 mmol/L (136-145) L 05/14/20 04:07 Potassium 4.0 mmol/L (3.5-5.1) 05/14/20 04:07 Chloride 94 mmol/L (98-107) L 05/14/20 04:07 Carbon Dioxide 24 mmol/L (23-31) 05/14/20 04:07 BUN 15 mg/dL (9.8-20.1) 05/14/20 04:07 Creatinine 0.75 mg/dL (0.6-1.1) 05/14/20 04:07 Glucose 97 mg/dL (83-110) 05/14/20 04:07 Calcium 8.2 mg/dL (7.8-10.44) 05/14/20 04:07 Total Bilirubin 0.4 mg/dL (0.2-1.2) 05/11/20 13:47 AST 26 U/L (5-34) 05/11/20 13:47 ALT 13 U/L (8-55) 05/11/20 13:47 Alkaline Phosphatase 75 U/L (40-110) 05/11/20 13:47 CK-MB (CK-2) 1.8 ng/mL (0-6.6) 05/11/20 13:47 Troponin I 0.015 ng/mL (< 0.028) 05/11/20 23:26 Serum Total Protein 6.9 g/dL (6.0-8.3) 05/11/20 13:47 Albumin 3.6 g/dL (3.4-4.8) 05/11/20 13:47 Urine Ketones Negative mg/dL (Negative) 05/11/20 15:15 Urine Blood 2+ (Negative) A 05/11/20 15:15 Urine Nitrite Negative (Negative) 05/11/20 15:15 Ur Leukocyte Esterase Negative Jennifer/uL (Negative) 05/11/20 15:15 Urine RBC 21-50 HPF (0-3) A 05/11/20 15:15 Urine WBC 0-3 HPF (0-3) 05/11/20 15:15 Ur Squamous Epith Cells 0-3 HPF (0-3) 05/11/20 15:15 Urine Bacteria None Seen HPF (None Seen) 05/11/20 15:15 PN A/P (1) Acute CVA (cerebrovascular accident) Code(s): I63.9 - CEREBRAL INFARCTION, UNSPECIFIED Status: Acute - Plan Daily Plan: PT/OT, speech therapy, DVT proph w/SCDs Ms. Norton is a 85-year-old female who presented with altered mental status and acute onset left-sided weakness. She is somnolent today but opens eyes to verbal stimuli. She is oriented to person and place. She does not follow commands due to increased somnolence. Consider repeat head CT without contrast . MRI of the brain reviewed which was consistent with acute infarction in the right thalamus and also in the left caudate. EEG reviewed which was negative for seizure activity. CTA of the head and neck did not reveal hemodynamically significant stenosis. Continue telemetry to rule out arrhythmias. 2D echo to evaluate for left ventricular ejection fraction. Continue aspirin and high intensity statin for secondary stroke prevention. Continue home medications. Permissive control of blood pressure at this time. Strict control of blood glucose. Continue medical management per primary team. PT/OT/speech. Plan discussed in detail with the patient
--- NOTE | 2020-05-14 14:51 | CT ---
Head CT without contrast 05/14/2020: COMPARISON: 05/11/2020 HISTORY: Neck pain, limited range of motion, somnolent, altered mental status TECHNIQUE: Axial CT imaging at 5 mm intervals from vertex through skull base without contrast FINDINGS: There is encephalomalacia within the temporal and occipital lobe on the right, similar when compared to the prior examination, consistent with areas of prior infarction. There is extensive periventricular, deep, and subcortical white matter hypodensity, consistent with severe small vessel disease. There is a new 1.9 cm area of abnormal hypodensity within the thalamus on the right which correlates with a focus of acute infarction noted on the 05/12/2020 brain MRI. No intracranial hemorrhage. There is no significant midline shift or mass effect present. There is mucosal thickening involving t he left sphenoid sinus, bilateral ethmoid air cells, and bilateral maxillary sinuses. No displaced calvarial fracture. IMPRESSION: Small vessel disease. 1.9 cm hypodensity in the right thalamus consistent with acute infa rction seen on the 05/12/2020 brain MRI. No intracranial hemorrhage.
--- NOTE | 2020-05-14 15:07 | CT ---
CT cervical spine: 05/14/2020 COMPARISON: None HISTORY: Neck pain with limited range of motion TECHNIQUE: Axial CT imaging at 2.5 mm intervals through the cervical spine with coronal and sagittal reformatted imaging FINDINGS: Imaged lung apices appear unremarkable. The occipital condyles, the dens, the C1-2 articulation, the craniocervical junction, the atlantoaxia l interspace, and the cervicothoracic junction demonstrate no acute findings. C2-3: Mild bilateral facet hypertrophy with no osseous cause of significant central canal or neural f oraminal stenosis. There is right facet joint fusion. C3-4: Right paracentral posterior osteophyte with associated mild central canal stenosis. Right facet and uncovertebral osteophyte with severe right neural foraminal stenosis. No osseous cause of significant left neural foraminal stenosis. C4-5: Bilateral facet and uncovertebral osteophyte formation, left greater than right. Mild left neur al foraminal stenosis. No osseous cause of significant central canal or right neural foraminal stenosis. C5-6: Bilateral facet and uncovertebral osteophyte formation, right greater than left, with moderate bilateral neural foraminal stenosis. Posterior disc osteophyte complex with at least mild central canal stenosis. C6-7: Disc space narrowing with degenerative endplate change and posterior osteophyte. Bilateral mild facet and uncovertebral osteophyte formation, right greater than left. C7-T1: There is disc space narrowing with degenerative endplate change and posterior osteophyte. Mild facet and uncovertebral osteophyte formation. No osseous cause of significant central canal or neural foraminal stenosis. No acute fracture or dislocation. No worrisome lytic or blastic bone lesion. IMPRESSION: Prominent multilevel cervical spine degenerative change as described above. No acute osse ous abnormality is seen.
[2020-05-14 16:09] LABS: Bacteria/HPF None Seen HPF (None Seen); Bilirubin Negative (Negative); Blood, Urine 3+ (Negative); Clarity Clear (Clear); Glucose, Urine (Dipstick) Normal (Negative); Ketone, Urine Negative (Negative); Leukocyte Negative Leu/uL (Negative); Nitrite Negative (Negative); Protein, Urine (Dipstick) 50 mg/dL (Neg-Trace); RBC/HPF Greater than 50 HPF (0-3); Specific Gravity, Urine 1.017 (1.002-1.036); Squamous Epithelial 0-3 HPF (0-3); Urobilinogen Normal mg/dL (Less than 2); pH, Urine 6.5 (5.0-9.0)
[2020-05-14 16:10] LABS: Urine Culture Reflex Yes Yes
[2020-05-14] MEDS: Atorvastatin Calcium 40 MG TAB PO SCH (20:50)
[2020-05-14] MEDS: Labetalol HCl 100 MG/20 ML VIAL SLOW IVP PRN (20:50)
[2020-05-15] MEDS: Labetalol HCl 100 MG/20 ML VIAL SLOW IVP PRN ×5 (02:02→18:16)
[2020-05-15 04:51] LABS: #Basophils 0.1 thou/uL (0.0-0.2); #Eosinphils 0.5 thou/uL (0.0-0.7); #Lymphocytes 1.7 thou/uL (1.20-3.40); #Monocytes 1.1 thou/uL (0.11-0.59); #Neutrophils 6.5 thou/uL (1.40-6.50); %Basophils 0.9 % (0.0-1.0); %Eosinophils 4.7 % (0.0-10.0); %Lymphocytes 16.7 % (21.0-51.0); %Monocytes 11.3 % (0.0-10.0); %Neutrophils 66.4 % (42.0-75.0); Hemoglobin 12.8 g/dL (12.0-16.0); Mean Corpuscular HGB CONC 33.9 g/dL (32.0-36.0); Mean Corpuscular Hemoglobin 31.2 pg (27.0-31.0); Mean Corpuscular Volume 91.8 fL (78.0-98.0); Mean Platelet Volume 6.4 fL (7.4-10.4); Platelet Count 507 thou/uL (130-400); RBC Distribution Width 12.5 % (11.5-14.5); White Blood Cell (WBC) Count 9.8 thou/uL (4.8-10.8)
[2020-05-15 05:15] LABS: ALT (SGPT) 14 U/L (8-55); AST (SGOT) 28 U/L (5-34); Albumin 3.2 g/dL (3.4-4.8); Alkaline Phosphatase 74 U/L (40-110); Bilirubin, Direct 0.2 mg/dL (0.1-0.3); Bilirubin, Total 0.3 mg/dL (0.2-1.2); Protein, Total 6.9 g/dL (6.0-8.3)
[2020-05-15 05:20] LABS: Anion Gap 16 mmol/L (10-20); BUN (Urea Nitrogen) 11 mg/dL (9.8-20.1); Calc. Creatinine Clearance 56 mL/min (70-130); Calcium 8.4 mg/dL (7.8-10.44); Carbon Dioxide 21 mmol/L (23-31); Chloride 99 mmol/L (98-107); Glucose 84 mg/dL (83-110); Potassium 4.7 mmol/L (3.5-5.1); Sodium 131 mmol/L (136-145)
[2020-05-15] MEDS: Acetaminophen 325 MG TAB PO PRN ×3 (06:19→18:51)
[2020-05-15] MEDS: Levothyroxine Sodium 75 MCG TAB PO SCH (06:20)
[2020-05-15] MEDS: Sodium Chloride 0.9% 1,000 ML IV SCH (08:43)
[2020-05-15] MEDS: Enoxaparin Sodium 40 MG/0.4 ML SYRINGE SC SCH (08:44)
[2020-05-15] MEDS: Amlodipine 5 MG TAB PO SCH (08:45)
[2020-05-15] MEDS: Lidocaine 5% Patch TD SCH (08:45)
[2020-05-15] MEDS: Aspirin 81 mg Enteric Coated Tablet PO SCH (08:45)
--- NOTE | 2020-05-15 14:47 | PDOC.NEUPN ---
- Subjective Encounter Date: 05/15/20 Subjective: Patient is alert and awake and knows her name and place. Head CT repeated yesterday for increased somnolence was stable with no acute findings. - Objective Vital Signs & Weight: Vital Signs (12 hours) Temp Pulse Pulse Pulse Resp BP BP 05/15/20 14:13 73 05/15/20 11:06 97.7 F 79 17 05/15/20 11:04 81 05/15/20 10:58 80 199/83 H 05/15/20 10:54 75 05/15/20 09:59 95 79 194/104 H 05/15/20 08:45 66 05/15/20 08:30 66 05/15/20 08:25 68 05/15/20 08:24 75 05/15/20 08:19 66 05/15/20 08:13 98.1 F 66 18 05/15/20 04:00 97.6 F 80 16 05/15/20 03:10 BP BP Pulse Ox 05/15/20 14:13 146/84 H 05/15/20 11:06 154/85 H 95 05/15/20 11:04 158/89 H 05/15/20 10:58 05/15/20 10:54 199/83 H 05/15/20 09:59 174/101 H 05/15/20 08:45 05/15/20 08:30 167/94 H 05/15/20 08:25 158/89 H 05/15/20 08:24 192/97 H 05/15/20 08:19 05/15/20 08:13 199/112 H 92 L 05/15/20 04:00 171/90 H 96 05/15/20 03:10 171/90 H Weight Admit Weight 128 lb 8 oz Weight 128 lb 8 oz I&O: 05/14/20 05/15/20 05/16/20 06:59 06:59 06:59 Intake Total 200 641 Output Total 1550 Balance 200 -909 Result Diagrams: 05/15/20 04:26 05/15/20 04:26 Radiology Reviewed by me: Yes EKG Reviewed by me: Yes ROS - Review of Systems Constitutional: denies: fever, chills, sweats, weakness, malaise, other Eyes: denies: pain, vision change, conjunctivae inflammation, eyelid inflammation, redness, other ENT: denies: ear pain, ear discharge, nose pain, nose discharge, nose congestion, mouth pain, mouth swelling, throat pain, throat swelling, other Genitourinary: denies: dysuria, frequency, incontinence, hematuria, retention, other Musculoskeletal: denies: neck pain, shoulder pain, arm pain, back pain, hand pain, leg pain, foot pain, other All Systems: All other systems reviewed; all pertinent +/- noted in HPI/Subj - Medication Medications: Active Medications Generic Name Dose Route Start Last Admin Trade Name Freq PRN Reason Stop Dose Admin Acetaminophen 650 mg 05/13/20 11:51 05/15/20 13:04 Acetaminophen 325 Mg Tab PO 650 mg Q6H PRN Administration Fever/Mild Pain (1-3) Amlodipine Besylate 2.5 mg 05/15/20 09:00 05/15/20 08:45 Amlodipine 5 Mg Tab PO 2.5 mg DAILY NAE Administration Aspirin 81 mg 05/12/20 09:00 05/15/20 08:45 Aspirin 81 Mg Enteric Coated Tablet PO 81 mg DAILY NAE Administration Atorvastatin Calcium 40 mg 05/11/20 21:00 05/14/20 20:50 Atorvastatin Calcium 40 Mg Tab PO 40 mg HS NAE Administration Enoxaparin Sodium 40 mg 05/12/20 09:00 05/15/20 08:44 Enoxaparin Sodium 40 Mg/0.4 Ml Syringe SC 40 mg 0900 NAE Administration Sodium Chloride 1,000 mls @ 45 mls/hr 05/14/20 09:30 05/15/20 08:43 Normal Saline 0.9% IV 1,000 mls .[id number] NAE Administration Labetalol HCl 10 mg 05/15/20 03:07 05/15/20 10:58 Labetalol Hcl 100 Mg/20 Ml Vial SLOW IVP 10 mg Q1H PRN Administration SBP Greater Than 180 Levothyroxine Sodium 75 mcg 05/15/20 06:00 05/15/20 06:20 Levothyroxine Sodium 75 Mcg Tab PO 75 mcg 0600 NAE Administration Lidocaine 1 patch 05/15/20 09:00 05/15/20 08:45 Lidocaine 5% Patch TD 1 patch DAILY NAE Administration Lorazepam 1 mg 05/12/20 08:42 05/12/20 15:40 Lorazepam 2 Mg/Ml Vial SLOW IVP 1 mg PRN PRN Administration Anxiety/Agitation - Exam General Appearance: awake alert Eye: PERRL ENT: normocephalic atraumatic Neck: supple Respiratory: CTAB Cardiovascular: RRR Gastrointestinal: soft Extremities: no cyanosis Skin: normal turgor Neurological: no new deficit Musculoskeletal: normal tone, no muscle wasting PSYCH: normal affect, normal behavior, oriented to person, oriented to place Results - Labs Result Diagrams: 05/15/20 04:26 05/15/20 04:26 Lab results: WBC 9.8 thou/uL (4.8-10.8) 05/15/20 04:26 Hgb 12.8 g/dL (12.0-16.0) 05/15/20 04:26 Hct 37.6 % (36.0-47.0) 05/15/20 04:26 MCV 91.8 fL (78.0-98.0) 05/15/20 04:26 Plt Count 507 thou/uL (130-400) H 05/15/20 04:26 Neutrophils % 66.4 % (42.0-75.0) 05/15/20 04:26 Sodium 131 mmol/L (136-145) L 05/15/20 04:26 Potassium 4.7 mmol/L (3.5-5.1) 05/15/20 04:26 Chloride 99 mmol/L (98-107) 05/15/20 04:26 Carbon Dioxide 21 mmol/L (23-31) L 05/15/20 04:26 BUN 11 mg/dL (9.8-20.1) 05/15/20 04:26 Creatinine 0.68 mg/dL (0.6-1.1) 05/15/20 04:26 Glucose 84 mg/dL (83-110) 05/15/20 04:26 Calcium 8.4 mg/dL (7.8-10.44) 05/15/20 04:26 Total Bilirubin 0.3 mg/dL (0.2-1.2) 05/15/20 04:26 AST 28 U/L (5-34) 05/15/20 04:26 ALT 14 U/L (8-55) 05/15/20 04:26 Alkaline Phosphatase 74 U/L (40-110) 05/15/20 04:26 Ammonia 41 umol/L (18-72) 05/14/20 14:03 CK-MB (CK-2) 1.8 ng/mL (0-6.6) 05/11/20 13:47 Troponin I 0.015 ng/mL (< 0.028) 05/11/20 23:26 Serum Total Protein 6.9 g/dL (6.0-8.3) 05/15/20 04:26 Albumin 3.2 g/dL (3.4-4.8) L 05/15/20 04:26 Urine Ketones Negative mg/dL (Negative) 05/14/20 15:42 Urine Blood 3+ (Negative) A 05/14/20 15:42 Urine Nitrite Negative (Negative) 05/14/20 15:42 Ur Leukocyte Esterase Negative Jennifer/uL (Negative) 05/14/20 15:42 Urine RBC Greater than 50 HPF (0-3) A 05/14/20 15:42 Urine WBC 4-6 HPF (0-3) A 05/14/20 15:42 Ur Squamous Epith Cells 0-3 HPF (0-3) 05/14/20 15:42 Urine Bacteria None Seen HPF (None Seen) 05/14/20 15:42 - Radiology Interpretation CT scan - head Status: image reviewed by me, report reviewed by me Additional Comment: No acute intracranial pathology PN A/P (1) Acute CVA (cerebrovascular accident) Code(s): I63.9 - CEREBRAL INFARCTION, UNSPECIFIED Status: Acute (2) Electrolyte imbalance Code(s): E87.8 - OTH DISORDERS OF ELECTROLYTE AND FLUID BALANCE, NEC Status: Acute (3) Hilar mass Code(s): R91.8 - OTHER NONSPECIFIC ABNORMAL FINDING OF LUNG FIELD Status: Acute (4) Neck pain Code(s): M54.2 - CERVICALGIA Status: Acute (5) Essential hypertension Code(s): I10 - ESSENTIAL (PRIMARY) HYPERTENSION Status: Chronic - Plan Daily Plan: PT/OT, speech therapy, DVT proph w/SCDs Ms. Norton is a 85-year-old female who presented with altered mental status and acute onset left-sided weakness. She is oriented to person and place. Patient doing much better today. Head CT repeated yesterday for increased somnolence was stable with no acute findings. MRI of the brain reviewed which was consistent with acute infarction in the right thalamus and also in the left caudate. EEG reviewed which was negative for seizure activity. CTA of the head and neck did not reveal hemodynamically significant stenosis. Continue telemetry to rule out arrhythmias. 2D echo to evaluate for left ventricular ejection fraction. Continue aspirin and high intensity statin for secondary stroke prevention. Continue home medications. Strict control of blood glucose and blood pressure. Continue medical management per primary team. PT/OT/speech. Case management on board regarding discharge planning Plan discussed in detail during the MDR rounds and with the primary attending Dr. Hamilton.
--- NOTE | 2020-05-15 15:55 | PDOC.HOSPP ---
- Subjective Encounter Date: 05/15/20 Encounter Time: 08:00 Subjective: Patient seen for follow-up regarding ischemic CVA. Reports neck pain is better. - Objective Vital Signs & Weight: Vital Signs (12 hours) Temp Pulse Pulse Pulse Resp BP BP 05/15/20 14:13 73 05/15/20 11:06 97.7 F 79 17 05/15/20 11:04 81 05/15/20 10:58 80 199/83 H 05/15/20 10:54 75 05/15/20 09:59 95 79 194/104 H 05/15/20 08:45 66 05/15/20 08:30 66 05/15/20 08:25 68 05/15/20 08:24 75 05/15/20 08:19 66 05/15/20 08:13 98.1 F 66 18 05/15/20 04:00 97.6 F 80 16 BP BP Pulse Ox 05/15/20 14:13 146/84 H 05/15/20 11:06 154/85 H 95 05/15/20 11:04 158/89 H 05/15/20 10:58 05/15/20 10:54 199/83 H 05/15/20 09:59 174/101 H 05/15/20 08:45 05/15/20 08:30 167/94 H 05/15/20 08:25 158/89 H 05/15/20 08:24 192/97 H 05/15/20 08:19 05/15/20 08:13 199/112 H 92 L 05/15/20 04:00 171/90 H 96 Weight Admit Weight 128 lb 8 oz Weight 128 lb 8 oz I&O: 05/14/20 05/15/20 05/16/20 06:59 06:59 06:59 Intake Total 200 641 Output Total 1550 Balance 200 -909 Result Diagrams: 05/15/20 04:26 05/15/20 04:26 Additional Labs: I reviewed patient's labs and MAR EKG Reviewed by me: Yes (Normal sinus rhythm on telemetry) Hospitalist ROS - Review of Systems Cardiovascular: denies: chest pain, palpitations, orthopnea, paroxysmal noc. dyspnea, edema, light headedness Gastrointestinal: denies: nausea, vomiting, abdominal pain, diarrhea, constipation, melena, hematochezia - Medication Medications: Active Medications Generic Name Dose Route Start Last Admin Trade Name Freq PRN Reason Stop Dose Admin Acetaminophen 650 mg 05/13/20 11:51 05/15/20 13:04 Acetaminophen 325 Mg Tab PO 650 mg Q6H PRN Administration Fever/Mild Pain (1-3) Amlodipine Besylate 2.5 mg 05/15/20 09:00 05/15/20 08:45 Amlodipine 5 Mg Tab PO 2.5 mg DAILY NAE Administration Aspirin 81 mg 05/12/20 09:00 05/15/20 08:45 Aspirin 81 Mg Enteric Coated Tablet PO 81 mg DAILY NAE Administration Atorvastatin Calcium 40 mg 05/11/20 21:00 05/14/20 20:50 Atorvastatin Calcium 40 Mg Tab PO 40 mg HS NAE Administration Enoxaparin Sodium 40 mg 05/12/20 09:00 05/15/20 08:44 Enoxaparin Sodium 40 Mg/0.4 Ml Syringe SC 40 mg 0900 NAE Administration Sodium Chloride 1,000 mls @ 45 mls/hr 05/14/20 09:30 05/15/20 08:43 Normal Saline 0.9% IV 1,000 mls .[id number] NAE Administration Labetalol HCl 10 mg 05/15/20 03:07 05/15/20 10:58 Labetalol Hcl 100 Mg/20 Ml Vial SLOW IVP 10 mg Q1H PRN Administration SBP Greater Than 180 Levothyroxine Sodium 75 mcg 05/15/20 06:00 05/15/20 06:20 Levothyroxine Sodium 75 Mcg Tab PO 75 mcg 0600 NAE Administration Lidocaine 1 patch 05/15/20 09:00 05/15/20 08:45 Lidocaine 5% Patch TD 1 patch DAILY NAE Administration Lorazepam 1 mg 05/12/20 08:42 05/12/20 15:40 Lorazepam 2 Mg/Ml Vial SLOW IVP 1 mg PRN PRN Administration Anxiety/Agitation - Exam General Appearance: awake alert Eye: anicteric sclera ENT: moist mucosa Neck: supple Heart: RRR Respiratory: CTAB Gastrointestinal: soft, non-tender Skin: no rashes Neurological: cranial nerve grossly intact Psychiatric: normal affect, normal behavior Hosp A/P - Plan (1) Acute CVA (cerebrovascular accident) Code(s): I63.9 - CEREBRAL INFARCTION, UNSPECIFIED Status: Acute Plan: Continue aspirin and statin. PT/OT. (2) Neck pain Code(s): M54.2 - CERVICALGIA Status: Acute Plan: Multilevel degenerative change on imaging of C-spine. (4) Hilar lymphadenopathy Status: Acute Plan: Wound incidentally on CTA imaging. Outpatient follow-up for further work-up given concern for possible malignancy. (5) Essential hypertension Code(s): I10 - ESSENTIAL (PRIMARY) HYPERTENSION Status: Chronic Plan: Permissive HTN given acute CVA. -Disposition InPatient rehab
[2020-05-15] MEDS ORDERED: Enalaprilat Dihydrate 1.25 MG/ML VIAL SLOW IVP PRN (18:34)
[2020-05-15] MEDS ORDERED: Enalaprilat Dihydrate 1.25 MG/ML VIAL SLOW IVP SCH (18:45)
[2020-05-15] MEDS: Atorvastatin Calcium 40 MG TAB PO SCH (20:36)
[2020-05-16] MEDS: Lidocaine Patch Removal 1 EACH TOP SCH ×2 (00:18→22:34)
[2020-05-16] MEDS: Levothyroxine Sodium 75 MCG TAB PO SCH (06:58)
[2020-05-16] MEDS: Lidocaine 5% Patch TD SCH (09:13)
[2020-05-16] MEDS: Enoxaparin Sodium 40 MG/0.4 ML SYRINGE SC SCH (09:13)
[2020-05-16] MEDS: Sodium Chloride 0.9% 1,000 ML IV SCH (09:13)
[2020-05-16] MEDS: Aspirin 81 mg Enteric Coated Tablet PO SCH (09:14)
[2020-05-16] MEDS: Amlodipine 5 MG TAB PO SCH (09:14)
[2020-05-16] MEDS: Acetaminophen 325 MG TAB PO PRN ×2 (09:18→21:59)
--- NOTE | 2020-05-16 15:43 | PDOC.HOSPP ---
- Subjective Encounter Date: 05/16/20 Encounter Time: 07:30 Subjective: Seen for follow-up regarding acute ischemic cerebrovascular accident. She reports that neck pain is better. - Objective Vital Signs & Weight: Vital Signs (12 hours) Temp Pulse Resp BP Pulse Ox 05/16/20 15:24 97.6 F 66 17 168/76 H 97 05/16/20 11:53 98.1 F 67 23 H 163/78 H 96 05/16/20 09:14 77 05/16/20 08:30 96.7 F L 65 15 162/84 H 96 05/16/20 04:00 98.3 F 62 15 153/72 H 96 Weight Admit Weight 128 lb 8 oz Weight 128 lb 8 oz I&O: 05/15/20 05/16/20 05/17/20 06:59 06:59 06:59 Intake Total 641 1800 240 Output Total 1550 450 Balance -909 1350 240 Result Diagrams: 05/15/20 04:26 05/15/20 04:26 Additional Labs: Labs and MAR reviewed by me EKG Reviewed by me: Yes (Normal sinus rhythm on telemetry) Hospitalist ROS - Review of Systems Cardiovascular: denies: chest pain, palpitations, orthopnea, paroxysmal noc. dyspnea, edema, light headedness Gastrointestinal: denies: nausea, vomiting, abdominal pain, diarrhea, constipation, melena, hematochezia Musculoskeletal: reports: neck pain - Medication Medications: Active Medications Generic Name Dose Route Start Last Admin Trade Name Freq PRN Reason Stop Dose Admin Acetaminophen 650 mg 05/13/20 11:51 05/16/20 09:18 Acetaminophen 325 Mg Tab PO 650 mg Q6H PRN Administration Fever/Mild Pain (1-3) Amlodipine Besylate 2.5 mg 05/15/20 09:00 05/16/20 09:14 Amlodipine 5 Mg Tab PO 2.5 mg DAILY NAE Administration Aspirin 81 mg 05/12/20 09:00 05/16/20 09:14 Aspirin 81 Mg Enteric Coated Tablet PO 81 mg DAILY NAE Administration Atorvastatin Calcium 40 mg 05/11/20 21:00 05/15/20 20:36 Atorvastatin Calcium 40 Mg Tab PO 40 mg HS NAE Administration Enoxaparin Sodium 40 mg 05/12/20 09:00 05/16/20 09:13 Enoxaparin Sodium 40 Mg/0.4 Ml Syringe SC 40 mg 0900 NAE Administration Sodium Chloride 1,000 mls @ 45 mls/hr 05/14/20 09:30 05/16/20 09:13 Normal Saline 0.9% IV 1,000 mls .[id number] NAE Administration Labetalol HCl 10 mg 05/15/20 03:07 05/15/20 18:16 Labetalol Hcl 100 Mg/20 Ml Vial SLOW IVP 10 mg Q1H PRN Administration SBP Greater Than 180 Levothyroxine Sodium 75 mcg 05/15/20 06:00 05/16/20 06:58 Levothyroxine Sodium 75 Mcg Tab PO 75 mcg 0600 NAE Administration Lidocaine 1 patch 05/15/20 09:00 05/16/20 09:13 Lidocaine 5% Patch TD 1 patch DAILY NAE Administration Lorazepam 1 mg 05/12/20 08:42 05/12/20 15:40 Lorazepam 2 Mg/Ml Vial SLOW IVP 1 mg PRN PRN Administration Anxiety/Agitation Miscellaneous Medication 1 each 05/15/20 21:00 05/16/20 00:18 Lidocaine Patch Removal 1 Each TOP 1 each 2100 NAE Administration - Exam General Appearance: awake alert Eye: anicteric sclera ENT: moist mucosa Neck: supple Heart: RRR Respiratory: CTAB Gastrointestinal: soft, non-tender Skin: no rashes Psychiatric: normal affect Hosp A/P - Plan Patient is a pleasant 85-year-old lady who was admitted to the hospitalOn May 11, 2020 for left-sided weakness. MRI of the brain on May 12 showed evidence for acute infarction changes involving the right thalamus and a small focus in the left caudate nucleus. Chest x-ray was suggestive of hilar mass. CT scan of the chest with contrast showed nonspecific enlarged right hilar lymph node. This needs to be worked up as outpatient for possible malignancy. 2D echo did not show any evidence of intracardiac thrombi, masses or vegetations. Patient also complained of neck pain. She improved with lidocaine patch. CT scan of the cervical spine showed multilevel degenerative changes but no acute fracture or dislocation. Patient was seen by therapy services. She has been recommended inpatient rehab. I updated the daughter by bedside on #[id number]. (1) Acute CVA (cerebrovascular accident) Code(s): I63.9 - CEREBRAL INFARCTION, UNSPECIFIED Status: Acute Plan: Continue aspirin and statin. Will need inpatient rehab. (2) Neck pain Code(s): M54.2 - CERVICALGIA Status: Acute Plan: Multilevel degenerative change on imaging of C-spine. Continue lidocaine patch. If pain persists, consider doubling lidocaine patch dose. Patient's daughter is concerned about use of gabapentin because she has several family members who developed constipation after starting gabapentin. (4) Hilar lymphadenopathy Status: Acute Plan: Found incidentally on CTA imaging. Patient needs outpatient follow-up for further work-up given concern for possible malignancy. (5) Essential hypertension Code(s): I10 - ESSENTIAL (PRIMARY) HYPERTENSION Status: Chronic Plan: Permissive HTN given acute CVA. -Disposition InPatient rehab
[2020-05-16] MEDS: Atorvastatin Calcium 40 MG TAB PO SCH (22:33)
[2020-05-17] MEDS: Acetaminophen 325 MG TAB PO PRN ×2 (06:19→20:44)
[2020-05-17] MEDS: Levothyroxine Sodium 75 MCG TAB PO SCH (06:20)
[2020-05-17] MEDS ORDERED: Loratadine 10 MG TAB PO PRN (08:26)
[2020-05-17] MEDS ORDERED: Zolpidem Tartrate 5 MG TAB PO PRN (08:26)
[2020-05-17] MEDS ORDERED: Cepastat Lozenges 1 LOZ PO PRN (08:26)
[2020-05-17] MEDS ORDERED: Calcium Carbonate 500 MG ChewTAB PO PRN (08:26)
[2020-05-17] MEDS ORDERED: Loperamide HCl 2 MG CAP PO PRN (08:26)
[2020-05-17] MEDS ORDERED: Diabetic Tussin 200 MG/10 ML UDCUP PO PRN (08:26)
[2020-05-17] MEDS ORDERED: Ondansetron ODT 4 MG TAB PO PRN (08:26)
[2020-05-17] MEDS ORDERED: Ondansetron PF 4 MG/2 ML Vial IVP PRN (08:26)
[2020-05-17] MEDS ORDERED: hydrALAZINE 20 MG/ML VIAL SLOW IVP PRN (08:26)
[2020-05-17] MEDS ORDERED: Sodium Chloride 0.65% Nasal 44 ML BOT EA NARE PRN (08:26)
[2020-05-17] MEDS: Enoxaparin Sodium 40 MG/0.4 ML SYRINGE SC SCH (08:27)
[2020-05-17] MEDS: Aspirin 81 mg Enteric Coated Tablet PO SCH (08:28)
[2020-05-17] MEDS: Sodium Chloride 0.9% 1,000 ML IV SCH (08:34)
[2020-05-17] MEDS: Lidocaine 5% Patch TD SCH (09:49)
[2020-05-17] MEDS: Amlodipine 10 MG TAB PO SCH (09:49)
[2020-05-17] MEDS: Famotidine 20 MG TAB PO SCH ×2 (09:50→20:44)
--- NOTE | 2020-05-17 11:09 | PDOC.HOSPP ---
- Subjective Encounter Date: 05/17/20 Encounter Time: 08:00 Subjective: Patient seen and examined bedside today, no overnight event, patient is not able to talk - Objective Vital Signs & Weight: Vital Signs (12 hours) Temp Pulse Resp BP Pulse Ox 05/17/20 09:49 64 05/17/20 08:00 97.8 F 69 16 194/90 H 95 05/17/20 04:00 97.4 F L 80 16 166/101 H 96 05/17/20 01:16 169/86 H 05/17/20 00:00 97.6 F 74 14 195/85 H 96 Weight Admit Weight 128 lb 8 oz Weight 128 lb 8 oz I&O: 05/16/20 05/17/20 05/18/20 06:59 06:59 06:59 Intake Total 1800 731 Output Total 450 Balance 1350 731 Result Diagrams: 05/15/20 04:26 05/15/20 04:26 Radiology Reviewed by me: Yes EKG Reviewed by me: Yes Hospitalist ROS - Review of Systems ROS unobtainable: due to mental status - Medication Medications: Active Medications Generic Name Dose Route Start Last Admin Trade Name Freq PRN Reason Stop Dose Admin Acetaminophen 650 mg 05/13/20 11:51 05/17/20 06:19 Acetaminophen 325 Mg Tab PO 650 mg Q6H PRN Administration Fever/Mild Pain (1-3) Amlodipine Besylate 10 mg 05/17/20 09:00 05/17/20 09:49 Amlodipine 10 Mg Tab PO 10 mg DAILY NAE Administration Aspirin 81 mg 05/12/20 09:00 05/17/20 08:28 Aspirin 81 Mg Enteric Coated Tablet PO 81 mg DAILY NAE Administration Atorvastatin Calcium 40 mg 05/11/20 21:00 05/16/20 22:33 Atorvastatin Calcium 40 Mg Tab PO 40 mg HS NAE Administration Enoxaparin Sodium 40 mg 05/12/20 09:00 05/17/20 08:27 Enoxaparin Sodium 40 Mg/0.4 Ml Syringe SC 40 mg 0900 NAE Administration Famotidine 20 mg 05/17/20 09:00 05/17/20 09:50 Famotidine 20 Mg Tab PO 20 mg BID NAE Administration Labetalol HCl 10 mg 05/15/20 03:07 05/15/20 18:16 Labetalol Hcl 100 Mg/20 Ml Vial SLOW IVP 10 mg Q1H PRN Administration SBP Greater Than 180 Levothyroxine Sodium 75 mcg 05/15/20 06:00 05/17/20 06:20 Levothyroxine Sodium 75 Mcg Tab PO 75 mcg 0600 NAE Administration Lidocaine 1 patch 05/15/20 09:00 05/17/20 09:49 Lidocaine 5% Patch TD 1 patch DAILY NAE Administration Lorazepam 1 mg 05/12/20 08:42 05/12/20 15:40 Lorazepam 2 Mg/Ml Vial SLOW IVP 1 mg PRN PRN Administration Anxiety/Agitation Miscellaneous Medication 1 each 05/15/20 21:00 05/16/20 22:34 Lidocaine Patch Removal 1 Each TOP 1 each 2100 NAE Administration - Exam General Appearance: NAD, ill appearing Eye: PERRL, anicteric sclera ENT: normocephalic atraumatic, dry oral mucosa Neck: supple, symmetric, no JVD Heart: RRR, no murmur, no gallops, no rubs Respiratory: no wheezes, no rales, no ronchi Gastrointestinal: soft, non-tender, non-distended Extremities: no clubbing, no edema Musculoskeletal: generalized weakness Hosp A/P (1) Acute CVA (cerebrovascular accident) Code(s): I63.9 - CEREBRAL INFARCTION, UNSPECIFIED Status: Acute (2) Hyponatremia Code(s): E87.1 - HYPO-OSMOLALITY AND HYPONATREMIA Status: Acute (3) Oropharyngeal dysphagia Code(s): R13.12 - DYSPHAGIA, OROPHARYNGEAL PHASE Status: Acute (4) Essential hypertension Code(s): I10 - ESSENTIAL (PRIMARY) HYPERTENSION Status: Chronic (5) Hypothyroidism Code(s): E03.9 - HYPOTHYROIDISM, UNSPECIFIED Status: Chronic Qualifiers: Hypothyroidism type: unspecified Qualified Code(s): E03.9 - Hypothyroidism, unspecified (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
[2020-05-17] MEDS: Labetalol HCl 100 MG/20 ML VIAL SLOW IVP PRN (11:52)
[2020-05-17] MEDS: HYDROcodone/Acetaminophen 5/325 mg Tablet PO PRN (15:59)
[2020-05-17] MEDS: Atorvastatin Calcium 40 MG TAB PO SCH (20:44)
[2020-05-17] MEDS: Lidocaine Patch Removal 1 EACH TOP SCH (20:47)
[2020-05-18] MEDS: Levothyroxine Sodium 75 MCG TAB PO SCH (06:26)
[2020-05-18] MEDS: Famotidine 20 MG TAB PO SCH ×2 (08:31→21:06)
[2020-05-18] MEDS: Lidocaine 5% Patch TD SCH (08:31)
[2020-05-18] MEDS: Aspirin 81 mg Enteric Coated Tablet PO SCH (08:32)
[2020-05-18] MEDS: Amlodipine 10 MG TAB PO SCH (08:32)
[2020-05-18] MEDS: Enoxaparin Sodium 40 MG/0.4 ML SYRINGE SC SCH (08:34)
[2020-05-18] MEDS: Acetaminophen 325 MG TAB PO PRN (08:49)
--- NOTE | 2020-05-18 09:48 | PDOC.HOSPP ---
- Subjective Encounter Date: 05/18/20 Encounter Time: 07:40 Subjective: Patient seen and examined. Patient is not able to communicate well, no overnight events - Objective Vital Signs & Weight: Vital Signs (12 hours) Temp Pulse Resp BP Pulse Ox 05/18/20 07:34 97.9 F 74 20 185/98 H 97 05/18/20 03:53 97.5 F L 62 15 173/86 H 92 L 05/18/20 00:00 97.4 F L 66 15 160/82 H 96 Weight Admit Weight 128 lb 8 oz Weight 128 lb 8 oz I&O: 05/17/20 05/18/20 05/19/20 06:59 06:59 06:59 Intake Total 731 1250 Balance 731 1250 Result Diagrams: 05/15/20 04:26 05/15/20 04:26 Hospitalist ROS - Review of Systems ROS unobtainable: due to mental status - Medication Medications: Active Medications Generic Name Dose Route Start Last Admin Trade Name Freq PRN Reason Stop Dose Admin Acetaminophen 650 mg 05/13/20 11:51 05/18/20 08:49 Acetaminophen 325 Mg Tab PO 650 mg Q6H PRN Administration Fever/Mild Pain (1-3) Hydrocodone Bitart/Acetaminophen 1 tab 05/17/20 08:26 05/17/20 15:59 Hydrocodone/Acetaminophen 5/325 Mg Tablet PO 1 tab Q4H PRN Administration Moderate Pain (4-6) Amlodipine Besylate 10 mg 05/17/20 09:00 05/18/20 08:32 Amlodipine 10 Mg Tab PO 10 mg DAILY NAE Administration Aspirin 81 mg 05/12/20 09:00 05/18/20 08:32 Aspirin 81 Mg Enteric Coated Tablet PO 81 mg DAILY NAE Administration Atorvastatin Calcium 40 mg 05/11/20 21:00 05/17/20 20:44 Atorvastatin Calcium 40 Mg Tab PO 40 mg HS NAE Administration Enoxaparin Sodium 40 mg 05/12/20 09:00 05/18/20 08:34 Enoxaparin Sodium 40 Mg/0.4 Ml Syringe SC 40 mg 0900 NAE Administration Famotidine 20 mg 05/17/20 09:00 05/18/20 08:31 Famotidine 20 Mg Tab PO 20 mg BID NAE Administration Labetalol HCl 10 mg 05/15/20 03:07 05/17/20 11:52 Labetalol Hcl 100 Mg/20 Ml Vial SLOW IVP 10 mg Q1H PRN Administration SBP Greater Than 180 Levothyroxine Sodium 75 mcg 05/15/20 06:00 05/18/20 06:26 Levothyroxine Sodium 75 Mcg Tab PO 75 mcg 0600 NAE Administration Lidocaine 1 patch 05/15/20 09:00 05/18/20 08:31 Lidocaine 5% Patch TD 1 patch DAILY NAE Administration Lorazepam 1 mg 05/12/20 08:42 05/12/20 15:40 Lorazepam 2 Mg/Ml Vial SLOW IVP 1 mg PRN PRN Administration Anxiety/Agitation Miscellaneous Medication 1 each 05/15/20 21:00 05/17/20 20:47 Lidocaine Patch Removal 1 Each TOP 1 each 2100 NAE Administration - Exam General Appearance: NAD, awake alert Eye: PERRL, anicteric sclera ENT: normocephalic atraumatic, no oropharyngeal lesions Neck: supple, symmetric, no JVD Heart: RRR, no murmur, no gallops Respiratory: no wheezes, no rales, no ronchi Gastrointestinal: soft, non-tender, non-distended, normal bowel sounds Extremities: no cyanosis, no clubbing, no edema Skin: normal turgor, no lesions Psychiatric: normal affect Hosp A/P (1) Acute CVA (cerebrovascular accident) Code(s): I63.9 - CEREBRAL INFARCTION, UNSPECIFIED Status: Acute (2) Hyponatremia Code(s): E87.1 - HYPO-OSMOLALITY AND HYPONATREMIA Status: Acute (3) Oropharyngeal dysphagia Code(s): R13.12 - DYSPHAGIA, OROPHARYNGEAL PHASE Status: Acute (4) Essential hypertension Code(s): I10 - ESSENTIAL (PRIMARY) HYPERTENSION Status: Chronic (5) Hypothyroidism Code(s): E03.9 - HYPOTHYROIDISM, UNSPECIFIED Status: Chronic Qualifiers: Hypothyroidism type: unspecified Qualified Code(s): E03.9 - Hypothyroidism, unspecified (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 twice daily, continue amlodipine Today family will discuss with protective services case worker about discharge planning, Patient probably candidate for usp home rather than rehab Continue diet as per speech recommendation
[2020-05-18] MEDS: Labetalol HCl 100 MG/20 ML VIAL SLOW IVP PRN (10:23)
[2020-05-18] MEDS: HYDROcodone/Acetaminophen 5/325 mg Tablet PO PRN (10:34)
[2020-05-18] MEDS: Atorvastatin Calcium 40 MG TAB PO SCH (21:06)
[2020-05-18] MEDS: hydrALAZINE 25 MG TAB PO SCH (21:07)
[2020-05-18] MEDS: Lidocaine Patch Removal 1 EACH TOP SCH (21:07)
[2020-05-19] MEDS: Acetaminophen 325 MG TAB PO PRN (05:18)
[2020-05-19] MEDS: Levothyroxine Sodium 75 MCG TAB PO SCH (05:18)
[2020-05-19] MEDS: Aspirin 81 mg Enteric Coated Tablet PO SCH (09:04)
[2020-05-19] MEDS: Famotidine 20 MG TAB PO SCH ×2 (09:04→21:50)
[2020-05-19] MEDS: hydrALAZINE 25 MG TAB PO SCH ×2 (09:04→21:50)
[2020-05-19] MEDS: Amlodipine 10 MG TAB PO SCH (09:04)
[2020-05-19] MEDS: Enoxaparin Sodium 40 MG/0.4 ML SYRINGE SC SCH (09:04)
[2020-05-19] MEDS: Lidocaine 5% Patch TD SCH (09:05)
--- NOTE | 2020-05-19 10:08 | PDOC.HOSPP ---
- Subjective Encounter Date: 05/19/20 Encounter Time: 07:50 Subjective: Patient seen and examined bedside today, no overnight event, no new complaint, patient's family member decided to let her go to rehab, rehab decision is pending, - Objective Vital Signs & Weight: Vital Signs (12 hours) Temp Pulse Resp BP Pulse Ox 05/19/20 09:04 78 05/19/20 07:40 97.9 F 78 16 146/80 H 96 05/19/20 03:30 97.5 F L 90 16 151/91 H 94 L 05/18/20 23:29 97.8 F 80 14 157/82 H 97 Weight Admit Weight 128 lb 8 oz Weight 128 lb 8 oz I&O: 05/18/20 05/19/20 05/20/20 06:59 06:59 06:59 Intake Total 1250 1160 Balance 1250 1160 Result Diagrams: 05/15/20 04:26 05/15/20 04:26 EKG Reviewed by me: Yes Hospitalist ROS - Review of Systems ROS unobtainable: due to mental status - Medication Medications: Active Medications Generic Name Dose Route Start Last Admin Trade Name Freq PRN Reason Stop Dose Admin Acetaminophen 650 mg 05/13/20 11:51 05/19/20 05:18 Acetaminophen 325 Mg Tab PO 650 mg Q6H PRN Administration Fever/Mild Pain (1-3) Hydrocodone Bitart/Acetaminophen 1 tab 05/17/20 08:26 05/18/20 10:34 Hydrocodone/Acetaminophen 5/325 Mg Tablet PO 1 tab Q4H PRN Administration Moderate Pain (4-6) Amlodipine Besylate 10 mg 05/17/20 09:00 05/19/20 09:04 Amlodipine 10 Mg Tab PO 10 mg DAILY NAE Administration Aspirin 81 mg 05/12/20 09:00 05/19/20 09:04 Aspirin 81 Mg Enteric Coated Tablet PO 81 mg DAILY NAE Administration Atorvastatin Calcium 40 mg 05/11/20 21:00 05/18/20 21:06 Atorvastatin Calcium 40 Mg Tab PO 40 mg HS NAE Administration Enoxaparin Sodium 40 mg 05/12/20 09:00 05/19/20 09:04 Enoxaparin Sodium 40 Mg/0.4 Ml Syringe SC 40 mg 09 NAE Administration Famotidine 20 mg 05/17/20 09:00 05/19/20 09:04 Famotidine 20 Mg Tab PO 20 mg BID NAE Administration Hydralazine HCl 25 mg 05/18/20 21:00 05/19/20 09:04 Hydralazine 25 Mg Tab PO 25 mg BID NAE Administration Labetalol HCl 10 mg 05/15/20 03:07 05/18/20 10:23 Labetalol Hcl 100 Mg/20 Ml Vial SLOW IVP 10 mg Q1H PRN Administration SBP Greater Than 180 Levothyroxine Sodium 75 mcg 05/15/20 06:00 05/19/20 05:18 Levothyroxine Sodium 75 Mcg Tab PO 75 mcg 0600 NAE Administration Lidocaine 1 patch 05/15/20 09:00 05/19/20 09:05 Lidocaine 5% Patch TD 1 patch DAILY NAE Administration Lorazepam 1 mg 05/12/20 08:42 05/12/20 15:40 Lorazepam 2 Mg/Ml Vial SLOW IVP 1 mg PRN PRN Administration Anxiety/Agitation Miscellaneous Medication 1 each 05/15/20 21:00 05/18/20 21:07 Lidocaine Patch Removal 1 Each TOP Not Given 2100 NAE - Exam General Appearance: NAD, awake alert Eye: PERRL, anicteric sclera ENT: normocephalic atraumatic, no oropharyngeal lesions Neck: supple, symmetric, no JVD, no thyromegaly Heart: RRR, no murmur, no gallops, no rubs Respiratory: no wheezes, no rales, no ronchi Gastrointestinal: soft, non-tender, non-distended, normal bowel sounds Extremities: no cyanosis, no clubbing, no edema Skin: normal turgor, no lesions Musculoskeletal: normal tone, normal strength, diffuse muscle atrophy Psychiatric: normal affect, normal behavior Hosp A/P (1) Acute CVA (cerebrovascular accident) Code(s): I63.9 - CEREBRAL INFARCTION, UNSPECIFIED Status: Acute Plan: Right thalamus and left caudate nucleus infarct (2) Hyponatremia Code(s): E87.1 - HYPO-OSMOLALITY AND HYPONATREMIA Status: Acute (3) Oropharyngeal dysphagia Code(s): R13.12 - DYSPHAGIA, OROPHARYNGEAL PHASE Status: Acute Plan: On modified diet, speech therapy on the case (4) Essential hypertension Code(s): I10 - ESSENTIAL (PRIMARY) HYPERTENSION Status: Chronic (5) Hypothyroidism Code(s): E03.9 - HYPOTHYROIDISM, UNSPECIFIED Status: Chronic Qualifiers: Hypothyroidism type: unspecified Qualified Code(s): E03.9 - Hypothyroidism, unspecified (6) DJD (degenerative joint disease) of cervical spine Code(s): M47.812 - SPONDYLOSIS W/O MYELOPATHY OR RADICULOPATHY, CERVICAL REGION Status: Chronic Qualifiers: Spinal osteoarthritis complication: without myelopathy or radiculopathy Q ualified Code(s): M47.812 - Spondylosis without myelopathy or radiculopathy, cervical region - Plan old records reviewed/req, PT/OT, social and human services assistant Plan I have reviewed all medication, currently patient is stable on current medication Blood pressure is better controlled compared to yesterday, Diet as tolerated as per speech recommendation manager willow working on her placement to rehab, I have done paperwork for discharge in her chart, will consider discharge whenever placement arranged
[2020-05-19] MEDS: Atorvastatin Calcium 40 MG TAB PO SCH (21:49)
[2020-05-19] MEDS: Lidocaine Patch Removal 1 EACH TOP SCH (21:50)
[2020-05-20] MEDS: Levothyroxine Sodium 75 MCG TAB PO SCH (05:44)
[2020-05-20] MEDS: Enoxaparin Sodium 40 MG/0.4 ML SYRINGE SC SCH (09:07)
[2020-05-20] MEDS: Lidocaine 5% Patch TD SCH (09:07)
[2020-05-20] MEDS: Amlodipine 10 MG TAB PO SCH (09:08)
[2020-05-20] MEDS: hydrALAZINE 25 MG TAB PO SCH ×2 (09:08→20:07)
[2020-05-20] MEDS: Aspirin 81 mg Enteric Coated Tablet PO SCH (09:08)
[2020-05-20] MEDS: Famotidine 20 MG TAB PO SCH ×2 (09:08→20:06)
--- NOTE | 2020-05-20 11:14 | PDOC.HOSPP ---
- Subjective Encounter Date: 05/20/20 Encounter Time: 09:30 Subjective: Patient seen and examined. No new complaints. No overnight events - Objective Vital Signs & Weight: Vital Signs (12 hours) Temp Pulse Resp BP Pulse Ox 05/20/20 09:05 97.9 F 86 16 144/82 H 94 L 05/20/20 05:07 97.4 F L 76 17 130/65 95 Weight Admit Weight 128 lb 8 oz Weight 128 lb 8 oz I&O: 05/19/20 05/20/20 05/21/20 06:59 06:59 06:59 Intake Total 1160 880 Output Total 675 Balance 1160 205 Result Diagrams: 05/15/20 04:26 05/15/20 04:26 EKG Reviewed by me: Yes Hospitalist ROS - Review of Systems ROS unobtainable: due to mental status - Medication Medications: Active Medications Generic Name Dose Route Start Last Admin Trade Name Freq PRN Reason Stop Dose Admin Acetaminophen 650 mg 05/13/20 11:51 05/19/20 05:18 Acetaminophen 325 Mg Tab PO 650 mg Q6H PRN Administration Fever/Mild Pain (1-3) Hydrocodone Bitart/Acetaminophen 1 tab 05/17/20 08:26 05/18/20 10:34 Hydrocodone/Acetaminophen 5/325 Mg Tablet PO 1 tab Q4H PRN Administration Moderate Pain (4-6) Amlodipine Besylate 10 mg 05/17/20 09:00 05/20/20 09:08 Amlodipine 10 Mg Tab PO 10 mg DAILY NAE Administration Aspirin 81 mg 05/12/20 09:00 05/20/20 09:08 Aspirin 81 Mg Enteric Coated Tablet PO 81 mg DAILY NAE Administration Atorvastatin Calcium 40 mg 05/11/20 21:00 05/19/20 21:49 Atorvastatin Calcium 40 Mg Tab PO 40 mg HS NAE Administration Enoxaparin Sodium 40 mg 05/12/20 09:00 05/20/20 09:07 Enoxaparin Sodium 40 Mg/0.4 Ml Syringe SC 40 mg 0900 NAE Administration Famotidine 20 mg 05/17/20 09:00 05/20/20 09:08 Famotidine 20 Mg Tab PO 20 mg BID NAE Administration Hydralazine HCl 25 mg 05/18/20 21:00 05/20/20 09:08 Hydralazine 25 Mg Tab PO 25 mg BID NAE Administration Labetalol HCl 10 mg 05/15/20 03:07 05/18/20 10:23 Labetalol Hcl 100 Mg/20 Ml Vial SLOW IVP 10 mg Q1H PRN Administration SBP Greater Than 180 Levothyroxine Sodium 75 mcg 05/15/20 06:00 05/20/20 05:44 Levothyroxine Sodium 75 Mcg Tab PO 75 mcg 0600 NAE Administration Lidocaine 1 patch 05/15/20 09:00 05/20/20 09:07 Lidocaine 5% Patch TD 1 patch DAILY NAE Administration Lorazepam 1 mg 05/12/20 08:42 05/12/20 15:40 Lorazepam 2 Mg/Ml Vial SLOW IVP 1 mg PRN PRN Administration Anxiety/Agitation Miscellaneous Medication 1 each 05/15/20 21:00 05/19/20 21:50 Lidocaine Patch Removal 1 Each TOP 1 each 2100 NAE Administration - Exam General Appearance: NAD Eye: PERRL, anicteric sclera ENT: normocephalic atraumatic, no oropharyngeal lesions Neck: supple, symmetric, no JVD Heart: RRR, no murmur, no gallops, no rubs Respiratory: no wheezes, no rales, no ronchi Gastrointestinal: soft, non-tender, non-distended, normal bowel sounds Extremities: no cyanosis, no clubbing Skin: normal turgor, no lesions Neurological: no new deficit Musculoskeletal: normal tone, normal strength Psychiatric: normal affect, normal behavior Hosp A/P (1) Acute CVA (cerebrovascular accident) Code(s): I63.9 - CEREBRAL INFARCTION, UNSPECIFIED Status: Acute (2) Hyponatremia Code(s): E87.1 - HYPO-OSMOLALITY AND HYPONATREMIA Status: Acute (3) Oropharyngeal dysphagia Code(s): R13.12 - DYSPHAGIA, OROPHARYNGEAL PHASE Status: Acute (4) Essential hypertension Code(s): I10 - ESSENTIAL (PRIMARY) HYPERTENSION Status: Chronic (5) Hypothyroidism Code(s): E03.9 - HYPOTHYROIDISM, UNSPECIFIED Status: Chronic Qualifiers: Hypothyroidism type: unspecified Qualified Code(s): E03.9 - Hypothyroidism, unspecified (6) DJD (degenerative joint disease) of cervical spine Code(s): M47.812 - SPONDYLOSIS W/O MYELOPATHY OR RADICULOPATHY, CERVICAL REGION Status: Chronic Qualifiers: Spinal osteoarthritis complication: without myelopathy or radiculopathy Qualified Code(s): M47.812 - Spondylosis without myelopathy or radiculopathy, cervical region - Plan old records reviewed/req, PT/OT, public health social worker, speech therapy Plan I have reviewed all medication, currently patient is stable on current medication Patient is awaiting rehab approval, Once placement arranged and patient is overall stable for discharge anytime.
--- NOTE | 2020-05-20 14:20 | PDOC.NEUPN ---
- Subjective Encounter Date: 05/20/20 Subjective: Ms. Norton denies any new complaints in the last 24 hours - Objective Vital Signs & Weight: Vital Signs (12 hours) Temp Pulse Resp BP Pulse Ox 05/20/20 11:53 98.2 F 90 15 141/75 H 96 05/20/20 09:05 97.9 F 86 16 144/82 H 94 L 05/20/20 08:00 94 L 05/20/20 05:07 97.4 F L 76 17 130/65 95 Weight Admit Weight 128 lb 8 oz Weight 128 lb 8 oz I&O: 05/19/20 05/20/20 05/21/20 06:59 06:59 06:59 Intake Total 1160 880 Output Total 675 Balance 1160 205 Result Diagrams: 05/15/20 04:26 05/15/20 04:26 Radiology Reviewed by me: Yes EKG Reviewed by me: Yes ROS - Review of Systems Constitutional: denies: fever, chills, sweats, weakness, malaise, other Eyes: denies: pain, vision change, conjunctivae inflammation, eyelid inflammation, redness, other ENT: denies: ear pain, ear discharge, nose pain, nose discharge, nose congestion, mouth pain, mouth swelling, throat pain, throat swelling, other Genitourinary: denies: dysuria, frequency, incontinence, hematuria, retention, other Neurological: reports: weakness, numbness, incoordination. denies: change in speech, confusion, seizures, other All Systems: All other systems reviewed; all pertinent +/- noted in HPI/Subj - Medication Medications: Active Medications Generic Name Dose Route Start Last Admin Trade Name Daniel PRN Reason Stop Dose Admin Acetaminophen 650 mg 05/13/20 11:51 05/19/20 05:18 Acetaminophen 325 Mg Tab PO 650 mg Q6H PRN Administration Fever/Mild Pain (1-3) Hydrocodone Bitart/Acetaminophen 1 tab 05/17/20 08:26 05/18/20 10:34 Hydrocodone/Acetaminophen 5/325 Mg Tablet PO 1 tab Q4H PRN Administration Moderate Pain (4-6) Amlodipine Besylate 10 mg 05/17/20 09:00 05/20/20 09:08 Amlodipine 10 Mg Tab PO 10 mg DAILY NAE Administration Aspirin 81 mg 05/12/20 09:00 05/20/20 09:08 Aspirin 81 Mg Enteric Coated Tablet PO 81 mg DAILY NAE Administration Atorvastatin Calcium 40 mg 05/11/20 21:00 05/19/20 21:49 Atorvastatin Calcium 40 Mg Tab PO 40 mg HS NAE Administration Enoxaparin Sodium 40 mg 05/12/20 09:00 05/20/20 09:07 Enoxaparin Sodium 40 Mg/0.4 Ml Syringe SC 40 mg 0900 NAE Administration Famotidine 20 mg 05/17/20 09:00 05/20/20 09:08 Famotidine 20 Mg Tab PO 20 mg BID NAE Administration Hydralazine HCl 25 mg 05/18/20 21:00 05/20/20 09:08 Hydralazine 25 Mg Tab PO 25 mg BID NAE Administration Labetalol HCl 10 mg 05/15/20 03:07 05/18/20 10:23 Labetalol Hcl 100 Mg/20 Ml Vial SLOW IVP 10 mg Q1H PRN Administration SBP Greater Than 180 Levothyroxine Sodium 75 mcg 05/15/20 06:00 05/20/20 05:44 Levothyroxine Sodium 75 Mcg Tab PO 75 mcg 0600 NAE Administration Lidocaine 1 patch 05/15/20 09:00 05/20/20 09:07 Lidocaine 5% Patch TD 1 patch DAILY NAE Administration Lorazepam 1 mg 05/12/20 08:42 05/12/20 15:40 Lorazepam 2 Mg/Ml Vial SLOW IVP 1 mg PRN PRN Administration Anxiety/Agitation Miscellaneous Medication 1 each 05/15/20 21:00 05/19/20 21:50 Lidocaine Patch Removal 1 Each TOP 1 each 2100 NAE Administration - Exam General Appearance: awake alert Eye: PERRL ENT: normocephalic atraumatic Neck: supple Respiratory: CTAB Cardiovascular: RRR Gastrointestinal: soft Extremities: no cyanosis Skin: normal turgor Neurological: no new deficit Musculoskeletal: normal tone, no muscle wasting PSYCH: oriented to person, oriented to place Results - Labs Result Diagrams: 05/15/20 04:26 05/15/20 04:26 Lab results: WBC 9.8 thou/uL (4.8-10.8) 05/15/20 04:26 Hgb 12.8 g/dL (12.0-16.0) 05/15/20 04:26 Hct 37.6 % (36.0-47.0) 05/15/20 04:26 MCV 91.8 fL (78.0-98.0) 05/15/20 04:26 Plt Count 507 thou/uL (130-400) H 05/15/20 04:26 Neutrophils % 66.4 % (42.0-75.0) 05/15/20 04:26 Sodium 131 mmol/L (136-145) L 05/15/20 04:26 Potassium 4.7 mmol/L (3.5-5.1) 05/15/20 04:26 Chloride 99 mmol/L (98-107) 05/15/20 04:26 Carbon Dioxide 21 mmol/L (23-31) L 05/15/20 04:26 BUN 11 mg/dL (9.8-20.1) 05/15/20 04:26 Creatinine 0.68 mg/dL (0.6-1.1) 05/15/20 04:26 Glucose 84 mg/dL (83-110) 05/15/20 04:26 Calcium 8.4 mg/dL (7.8-10.44) 05/15/20 04:26 Total Bilirubin 0.3 mg/dL (0.2-1.2) 05/15/20 04:26 AST 28 U/L (5-34) 05/15/20 04:26 ALT 14 U/L (8-55) 05/15/20 04:26 Alkaline Phosphatase 74 U/L (40-110) 05/15/20 04:26 Ammonia 41 umol/L (18-72) 05/14/20 14:03 CK-MB (CK-2) 1.8 ng/mL (0-6.6) 05/11/20 13:47 Troponin I 0.015 ng/mL (< 0.028) 05/11/20 23:26 Serum Total Protein 6.9 g/dL (6.0-8.3) 05/15/20 04:26 Albumin 3.2 g/dL (3.4-4.8) L 05/15/20 04:26 Urine Ketones Negative mg/dL (Negative) 05/14/20 15:42 Urine Blood 3+ (Negative) A 05/14/20 15:42 Urine Nitrite Negative (Negative) 05/14/20 15:42 Ur Leukocyte Esterase Negative Jennifer/uL (Negative) 05/14/20 15:42 Urine RBC Greater than 50 HPF (0-3) A 05/14/20 15:42 Urine WBC 4-6 HPF (0-3) A 05/14/20 15:42 Ur Squamous Epith Cells 0-3 HPF (0-3) 05/14/20 15:42 Urine Bacteria None Seen HPF (None Seen) 05/14/20 15:42 - Radiology Interpretation CT scan - head Additional Comment: Consistent with acute infarction PN A/P (1) Acute CVA (cerebrovascular accident) Code(s): I63.9 - CEREBRAL INFARCTION, UNSPECIFIED Status: Acute (2) Electrolyte imbalance Code(s): E87.8 - OTH DISORDERS OF ELECTROLYTE AND FLUID BALANCE, NEC Status: Deleted (3) Hilar mass Code(s): R91.8 - OTHER NONSPECIFIC ABNORMAL FINDING OF LUNG FIELD Status: Acute (4) Neck pain Code(s): M54.2 - CERVICALGIA Status: Acute (5) Essential hypertension Code(s): I10 - ESSENTIAL (PRIMARY) HYPERTENSION Status: Chronic - Plan Daily Plan: PT/OT, speech therapy, DVT proph w/SCDs Consults: Other (Rehab) Ms. Norton is a 85-year-old female who presented with altered mental status and acute onset left-sided weakness. She is oriented to person and place. Patient doing much better and participating with therapy. Imaging consistent with acute infarction. Case management on board regarding discharge planning. Awaiting discharge to rehab. MRI of the brain reviewed which was consistent with acute infarction in the r ight thalamus and also in the left caudate. EEG reviewed which was negative for seizure activity. CTA of the head and neck did not reveal hemodynamically significant stenosis. Continue telemetry to rule out arrhythmias. 2D echo to evaluate for left ventricular ejection fraction. Continue aspirin and high intensity statin for secondary stroke prevention. Continue home medications. Strict control of blood glucose and blood pressure. Continue medical management per primary team. PT/OT/speech. Plan discussed with the patient and nursing staff.
[2020-05-20] MEDS: Lidocaine Patch Removal 1 EACH TOP SCH (20:07)
[2020-05-20] MEDS: Atorvastatin Calcium 40 MG TAB PO SCH (20:07)
[2020-05-21] MEDS: Levothyroxine Sodium 75 MCG TAB PO SCH (05:26)
--- NOTE | 2020-05-21 07:20 | PDOC.HOSPP ---
- Subjective Encounter Date: 05/21/20 Encounter Time: 09:00 Subjective: Patient without complaint. No events overnight. - Objective Vital Signs & Weight: Vital Signs (12 hours) Temp Pulse Resp BP BP Pulse Ox 05/21/20 04:02 97.5 F L 88 15 117/73 98 05/20/20 20:07 78 141/82 H 05/20/20 20:05 95 05/20/20 20:00 97.7 F 78 16 95 Weight Admit Weight 128 lb 8 oz Weight 128 lb 8 oz I&O: 05/20/20 05/21/20 05/22/20 06:59 06:59 06:59 Intake Total 880 710 Output Total 675 750 Balance 205 -40 Result Diagrams: 05/15/20 04:26 05/15/20 04:26 Hospitalist ROS - Review of Systems Respiratory: denies: cough, shortness of breath Cardiovascular: denies: chest pain, palpitations Gastrointestinal: denies: nausea, vomiting, abdominal pain - Medication Medications: Active Medications Generic Name Dose Route Start Last Admin Trade Name Freq PRN Reason Stop Dose Admin Acetaminophen 650 mg 05/13/20 11:51 05/19/20 05:18 Acetaminophen 325 Mg Tab PO 650 mg Q6H PRN Administration Fever/Mild Pain (1-3) Hydrocodone Bitart/Acetaminophen 1 tab 05/17/20 08:26 05/18/20 10:34 Hydrocodone/Acetaminophen 5/325 Mg Tablet PO 1 tab Q4H PRN Administration Moderate Pain (4-6) Amlodipine Besylate 10 mg 05/17/20 09:00 05/20/20 09:08 Amlodipine 10 Mg Tab PO 10 mg DAILY NAE Administration Aspirin 81 mg 05/12/20 09:00 05/20/20 09:08 Aspirin 81 Mg Enteric Coated Tablet PO 81 mg DAILY NAE Administration Atorvastatin Calcium 40 mg 05/11/20 21:00 05/20/20 20:07 Atorvastatin Calcium 40 Mg Tab PO 40 mg HS NAE Administration Enoxaparin Sodium 40 mg 05/12/20 09:00 05/20/20 09:07 Enoxaparin Sodium 40 Mg/0.4 Ml Syringe SC 40 mg 0900 NAE Administration Famotidine 20 mg 05/17/20 09:00 05/20/20 20:06 Famotidine 20 Mg Tab PO 20 mg BID NAE Administration Hydralazine HCl 25 mg 05/18/20 21:00 05/20/20 20:07 Hydralazine 25 Mg Tab PO 25 mg BID NAE Administration Labetalol HCl 10 mg 05/15/20 03:07 05/18/20 10:23 Labetalol Hcl 100 Mg/20 Ml Vial SLOW IVP 10 mg Q1H PRN Administration SBP Greater Than 180 Levothyroxine Sodium 75 mcg 05/15/20 06:00 05/21/20 05:26 Levothyroxine Sodium 75 Mcg Tab PO 75 mcg 0600 NAE Administration Lidocaine 1 patch 05/15/20 09:00 05/20/20 09:07 Lidocaine 5% Patch TD 1 patch DAILY NAE Administration Lorazepam 1 mg 05/12/20 08:42 05/12/20 15:40 Lorazepam 2 Mg/Ml Vial SLOW IVP 1 mg PRN PRN Administration Anxiety/Agitation Miscellaneous Medication 1 each 05/15/20 21:00 05/20/20 20:07 Lidocaine Patch Removal 1 Each TOP 1 each 2100 NAE Administration - Exam General Appearance: NAD General - other findings: sleeping, easily arousable ENT: moist mucosa Heart: RRR, no murmur, no gallops, no rubs Respiratory: CTAB, no wheezes, no rales, no ronchi Gastrointestinal: soft, non-tender, non-distended, normal bowel sounds Neurological - other findings: moves all extremities, left side a little weaker Psychiatric: normal affect, normal behavior, oriented to person, oriented to place. negative: oriented to time Hosp A/P (1) Acute CVA (cerebrovascular accident) Code(s): I63.9 - CEREBRAL INFARCTION, UNSPECIFIED Status: Acute (2) Oropharyngeal dysphagia Code(s): R13.12 - DYSPHAGIA, OROPHARYNGEAL PHASE Status: Acute (3) Hyponatremia Code(s): E87.1 - HYPO-OSMOLALITY AND HYPONATREMIA Status: Acute (4) DJD (degenerative joint disease) of cervical spine Code(s): M47.812 - SPONDYLOSIS W/O MYELOPATHY OR RADICULOPATHY, CERVICAL REGION Status: Chronic Qualifiers: Spinal osteoarthritis complication: without myelopathy or radiculopathy Qualified Code(s): M47.812 - Spondylosis without myelopathy or radiculopathy, cervical region (5) Essential hypertension Code(s): I10 - ESSENTIAL (PRIMARY) HYPERTENSION Status: Chronic (6) Hypothyroidism Code(s): E03.9 - HYPOTHYROIDISM, UNSPECIFIED Status: Chronic Qualifiers: Hypothyroidism type: unspecified Qualified Code(s): E03.9 - Hypothyroidism, unspecified (7) Hilar mass Code(s): R91.8 - OTHER NONSPECIFIC ABNORMAL FINDING OF LUNG FIELD Status: Acute Plan: enlarged right hilar lymph node mass, needs follow up - Plan Patient doing well with PT post stroke Awaiting rehab placement Continue ASA, Statin, BP control. F/u with pulmonology outpatient about right hilar mass
[2020-05-21] MEDS: hydrALAZINE 25 MG TAB PO SCH ×2 (09:38→20:50)
[2020-05-21] MEDS: Enoxaparin Sodium 40 MG/0.4 ML SYRINGE SC SCH (09:38)
[2020-05-21] MEDS: Bisacodyl 5 MG TAB PO PRN (09:38)
[2020-05-21] MEDS: Amlodipine 10 MG TAB PO SCH (09:38)
[2020-05-21] MEDS: Aspirin 81 mg Enteric Coated Tablet PO SCH (09:38)
[2020-05-21] MEDS: Famotidine 20 MG TAB PO SCH ×2 (09:38→20:50)
[2020-05-21] MEDS: Lidocaine 5% Patch TD SCH (09:39)
--- NOTE | 2020-05-21 14:04 | PDOC.NEUPN ---
- Subjective Encounter Date: 05/21/20 Subjective: Ms. Celeste denoes any new complaints since the last 24 hours. - Objective Vital Signs & Weight: Vital Signs (12 hours) Temp Pulse Pulse Pulse Resp BP BP 05/21/20 13:19 98 103 H 146/85 H 133/83 05/21/20 11:17 97.9 F 98 16 05/21/20 09:38 74 05/21/20 07:36 97.4 F L 74 16 05/21/20 04:02 97.5 F L 88 15 BP Pulse Ox 05/21/20 13:19 05/21/20 11:17 138/75 96 05/21/20 09:38 05/21/20 07:36 142/81 H 95 05/21/20 04:02 117/73 98 Weight Admit Weight 128 lb 8 oz Weight 128 lb 8 oz I&O: 05/20/20 05/21/20 05/22/20 06:59 06:59 06:59 Intake Total 880 710 536 Output Total 675 750 Balance 205 -40 536 Result Diagrams: 05/15/20 04:26 05/15/20 04:26 Radiology Reviewed by me: Yes EKG Reviewed by me: Yes ROS - Review of Systems Constitutional: denies: fever, chills, sweats, weakness, malaise, other Eyes: denies: pain, vision change, conjunctivae inflammation, eyelid inflammation, redness, other ENT: denies: ear pain, ear discharge, nose pain, nose discharge, nose congestion, mouth pain, mouth swelling, throat pain, throat swelling, other Neurological: reports: weakness, numbness, incoordination All Systems: All other systems reviewed; all pertinent +/- noted in HPI/Subj - Medication Medications: Active Medications Generic Name Dose Route Start Last Admin Trade Name Freq PRN Reason Stop Dose Admin Acetaminophen 650 mg 05/13/20 11:51 05/19/20 05:18 Acetaminophen 325 Mg Tab PO 650 mg Q6H PRN Administration Fever/Mild Pain (1-3) Hydrocodone Bitart/Acetaminophen 1 tab 05/17/20 08:26 05/18/20 10:34 Hydrocodone/Acetaminophen 5/325 Mg Tablet PO 1 tab Q4H PRN Administration Moderate Pain (4-6) Amlodipine Besylate 10 mg 05/17/20 09:00 05/21/20 09:38 Amlodipine 10 Mg Tab PO 10 mg DAILY NAE Administration Aspirin 81 mg 05/12/20 09:00 05/21/20 09:38 Aspirin 81 Mg Enteric Coated Tablet PO 81 mg DAILY NAE Administration Atorvastatin Calcium 40 mg 05/11/20 21:00 05/20/20 20:07 Atorvastatin Calcium 40 Mg Tab PO 40 mg HS NAE Administration Bisacodyl 10 mg 05/17/20 08:26 05/21/20 09:38 Bisacodyl 5 Mg Tab PO 10 mg DAILYPRN PRN Administration Constipation Enoxaparin Sodium 40 mg 05/12/20 09:00 05/21/20 09:38 Enoxaparin Sodium 40 Mg/0.4 Ml Syringe SC 40 mg 0900 NAE Administration Famotidine 20 mg 05/17/20 09:00 05/21/20 09:38 Famotidine 20 Mg Tab PO 20 mg BID NAE Administration Hydralazine HCl 25 mg 05/18/20 21:00 05/21/20 09:38 Hydralazine 25 Mg Tab PO 25 mg BID NAE Administration Labetalol HCl 10 mg 05/15/20 03:07 05/18/20 10:23 Labetalol Hcl 100 Mg/20 Ml Vial SLOW IVP 10 mg Q1H PRN Administration SBP Greater Than 180 Levothyroxine Sodium 75 mcg 05/15/20 06:00 05/21/20 05:26 Levothyroxine Sodium 75 Mcg Tab PO 75 mcg 0600 NAE Administration Lidocaine 1 patch 05/15/20 09:00 05/21/20 09:39 Lidocaine 5% Patch TD 1 patch DAILY NAE Administration Lorazepam 1 mg 05/12/20 08:42 05/12/20 15:40 Lorazepam 2 Mg/Ml Vial SLOW IVP 1 mg PRN PRN Administration Anxiety/Agitation Miscellaneous Medication 1 each 05/15/20 21:00 05/20/20 20:07 Lidocaine Patch Removal 1 Each TOP 1 each 2100 NAE Administration - Exam General Appearance: awake alert Eye: PERRL ENT: normocephalic atraumatic Neck: supple Respiratory: CTAB Cardiovascular: RRR Gastrointestinal: soft Extremities: no cyanosis Skin: normal turgor Neurological: no new deficit, facial droop, hemiplegia, speech deficit Musculoskeletal: no muscle wasting PSYCH: normal affect, normal behavior, oriented to person, oriented to place, oriented to time Results - Labs Result Diagrams: 05/15/20 04:26 05/15/20 04:26 Lab results: WBC 9.8 thou/uL (4.8-10.8) 05/15/20 04:26 Hgb 12.8 g/dL (12.0-16.0) 05/15/20 04:26 Hct 37.6 % (36.0-47.0) 05/15/20 04:26 MCV 91.8 fL (78.0-98.0) 05/15/20 04:26 Plt Count 507 thou/uL (130-400) H 05/15/20 04:26 Neutrophils % 66.4 % (42.0-75.0) 05/15/20 04:26 Sodium 131 mmol/L (136-145) L 05/15/20 04:26 Potassium 4.7 mmol/L (3.5-5.1) 05/15/20 04:26 Chloride 99 mmol/L (98-107) 05/15/20 04:26 Carbon Dioxide 21 mmol/L (23-31) L 05/15/20 04:26 BUN 11 mg/dL (9.8-20.1) 05/15/20 04:26 Creatinine 0.68 mg/dL (0.6-1.1) 05/15/20 04:26 Glucose 84 mg/dL (83-110) 05/15/20 04:26 Calcium 8.4 mg/dL (7.8-10.44) 05/15/20 04:26 Total Bilirubin 0.3 mg/dL (0.2-1.2) 05/15/20 04:26 AST 28 U/L (5-34) 05/15/20 04:26 ALT 14 U/L (8-55) 05/15/20 04:26 Alkaline Phosphatase 74 U/L (40-110) 05/15/20 04:26 Ammonia 41 umol/L (18-72) 05/14/20 14:03 CK-MB (CK-2) 1.8 ng/mL (0-6.6) 05/11/20 13:47 Troponin I 0.015 ng/mL (< 0.028) 05/11/20 23:26 Serum Total Protein 6.9 g/dL (6.0-8.3) 05/15/20 04:26 Albumin 3.2 g/dL (3.4-4.8) L 05/15/20 04:26 Urine Ketones Negative mg/dL (Negative) 05/14/20 15:42 Urine Blood 3+ (Negative) A 05/14/20 15:42 Urine Nitrite Negative (Negative) 05/14/20 15:42 Ur Leukocyte Esterase Negative Jennifer/uL (Negative) 05/14/20 15:42 Urine RBC Greater than 50 HPF (0-3) A 05/14/20 15:42 Urine WBC 4-6 HPF (0-3) A 05/14/20 15:42 Ur Squamous Epith Cells 0-3 HPF (0-3) 05/14/20 15:42 Urine Bacteria None Seen HPF (None Seen) 05/14/20 15:42 PN A/P (1) Acute CVA (cerebrovascular accident) Code(s): I63.9 - CEREBRAL INFARCTION, UNSPECIFIED Status: Acute (2) Electrolyte imbalance Code(s): E87.8 - OTH DISORDERS OF ELECTROLYTE AND FLUID BALANCE, NEC Status: Deleted (3) Hilar mass Code(s): R91.8 - OTHER NONSPECIFIC ABNORMAL FINDING OF LUNG FIELD Status: Acute (4) Neck pain Code(s): M54.2 - CERVICALGIA Status: Acute (5) Essential hypertension Code(s): I10 - ESSENTIAL (PRIMARY) HYPERTENSION Status: Chronic - Plan Daily Plan: PT/OT, speech therapy, DVT proph w/SCDs Consults: Other (rehab) Ms. Norton is a 85-year-old female who presented with altered mental status and acute onset left-sided weakness. Imaging consistent with acute infarction. Patient doing much better and participating with physical therapy. Case management on board regarding discharge planning. Awaiting discharge to rehab. MRI of the brain reviewed which was consistent with acute infarction in the right thalamus and also in the left caudate. EEG reviewed which was negative for seizure activity. CTA of the head and neck did not reveal hemodynamically significant stenosis. Continue telemetry to rule out arrhythmias. 2D echo to evaluate for left ventricular ejection fraction. Continue aspirin and high intensity statin for secondary stroke prevention. Continue home medications. Strict control of blood glucose and blood pressure. Continue medical management per primary team. PT/OT/speech. Plan discussed with the patient and nursing staff.
[2020-05-21] MEDS: Senokot S 8.6-50 MG TAB PO PRN (19:08)
[2020-05-21] MEDS: HYDROcodone/Acetaminophen 5/325 mg Tablet PO PRN (19:09)
[2020-05-21] MEDS: Atorvastatin Calcium 40 MG TAB PO SCH (20:50)
[2020-05-21] MEDS: Lidocaine Patch Removal 1 EACH TOP SCH (20:51)
[2020-05-22] MEDS: HYDROcodone/Acetaminophen 5/325 mg Tablet PO PRN (05:24)
[2020-05-22] MEDS: Levothyroxine Sodium 75 MCG TAB PO SCH (05:24)
[2020-05-22] MEDS: Aspirin 81 mg Enteric Coated Tablet PO SCH (09:36)
[2020-05-22] MEDS: Famotidine 20 MG TAB PO SCH ×2 (09:36→20:51)
[2020-05-22] MEDS: hydrALAZINE 25 MG TAB PO SCH ×2 (09:36→20:51)
[2020-05-22] MEDS: Amlodipine 10 MG TAB PO SCH (09:36)
[2020-05-22] MEDS: Enoxaparin Sodium 40 MG/0.4 ML SYRINGE SC SCH (09:37)
[2020-05-22] MEDS: Lidocaine 5% Patch TD SCH (09:37)
--- NOTE | 2020-05-22 11:51 | PDOC.HOSPP ---
- Subjective Encounter Date: 05/22/20 Encounter Time: 09:00 Subjective: No changes overnight. No complaints this AM. Will talk to me but not open her eyes. - Objective Vital Signs & Weight: Vital Signs (12 hours) Temp Pulse Resp BP BP BP BP 05/22/20 09:36 64 05/22/20 08:59 126/72 131/78 05/22/20 07:57 97.3 F L 64 12 125/72 05/22/20 05:35 96.5 F L 81 20 134/76 05/22/20 01:25 97.2 F L 79 20 123/70 Pulse Ox 05/22/20 09:36 05/22/20 08:59 05/22/20 07:57 96 05/22/20 05:35 94 L 05/22/20 01:25 94 L Weight Admit Weight 128 lb 8 oz Weight 128 lb 8 oz I&O: 05/21/20 05/22/20 05/23/20 06:59 06:59 06:59 Intake Total 710 941 240 Output Total 750 Balance -40 941 240 Result Diagrams: 05/15/20 04:26 05/15/20 04:26 Hospitalist ROS - Review of Systems Constitutional: denies: fever Respiratory: denies: cough, shortness of breath Cardiovascular: denies: chest pain Gastrointestinal: denies: nausea, vomiting, abdominal pain - Medication Medications: Active Medications Generic Name Dose Route Start Last Admin Trade Name Freq PRN Reason Stop Dose Admin Acetaminophen 650 mg 05/13/20 11:51 05/19/20 05:18 Acetaminophen 325 Mg Tab PO 650 mg Q6H PRN Administration Fever/Mild Pain (1-3) Hydrocodone Bitart/Acetaminophen 1 tab 05/17/20 08:26 05/22/20 05:24 Hydrocodone/Acetaminophen 5/325 Mg Tablet PO 1 tab Q4H PRN Administration Moderate Pain (4-6) Amlodipine Besylate 10 mg 05/17/20 09:00 05/22/20 09:36 Amlodipine 10 Mg Tab PO 10 mg DAILY NAE Administration Aspirin 81 mg 05/12/20 09:00 05/22/20 09:36 Aspirin 81 Mg Enteric Coated Tablet PO 81 mg DAILY NAE Administration Atorvastatin Calcium 40 mg 05/11/20 21:00 05/21/20 20:50 Atorvastatin Calcium 40 Mg Tab PO 40 mg HS NAE Administration Bisacodyl 10 mg 05/17/20 08:26 05/21/20 09:38 Bisacodyl 5 Mg Tab PO 10 mg DAILYPRN PRN Administration Constipation Enoxaparin Sodium 40 mg 05/12/20 09:00 05/22/20 09:37 Enoxaparin Sodium 40 Mg/0.4 Ml Syringe SC 40 mg 0900 NAE Administration Famotidine 20 mg 05/17/20 09:00 05/22/20 09:36 Famotidine 20 Mg Tab PO 20 mg BID NAE Administration Hydralazine HCl 25 mg 05/18/20 21:00 05/22/20 09:36 Hydralazine 25 Mg Tab PO 25 mg BID NAE Administration Labetalol HCl 10 mg 05/15/20 03:07 05/18/20 10:23 Labetalol Hcl 100 Mg/20 Ml Vial SLOW IVP 10 mg Q1H PRN Administration SBP Greater Than 180 Levothyroxine Sodium 75 mcg 05/15/20 06:00 05/22/20 05:24 Levothyroxine Sodium 75 Mcg Tab PO 75 mcg 0600 NAE Administration Lidocaine 1 patch 05/15/20 09:00 05/22/20 09:37 Lidocaine 5% Patch TD 1 patch DAILY NAE Administration Miscellaneous Medication 1 each 05/15/20 21:00 05/21/20 20:51 Lidocaine Patch Removal 1 Each TOP 1 each 2100 NAE Administration Senna/Docusate Sodium 2 tab 05/17/20 08:26 05/21/20 19:08 Senokot S 8.6-50 Mg Tab PO 2 tab BID PRN Administration Constipation Sodium Chloride 10 ml 05/11/20 14:53 05/21/20 20:50 Flush - Normal Saline 10 Ml Syringe IVF 10 ml PRN PRN Administration Saline Flush - Exam General Appearance: NAD General - other findings: sleeping, arousable ENT: moist mucosa Heart: RRR, no murmur, no gallops, no rubs Respiratory: CTAB, no wheezes, no rales, no ronchi Gastrointestinal: soft, non-tender, non-distended, normal bowel sounds Extremities: no edema Psychiatric - other findings: sleeping, arousable Hosp A/P (1) Acute CVA (cerebrovascular accident) Code(s): I63.9 - CEREBRAL INFARCTION, UNSPECIFIED Status: Acute (2) Oropharyngeal dysphagia Code(s): R13.12 - DYSPHAGIA, OROPHARYNGEAL PHASE Status: Acute (3) Hyponatremia Code(s): E87.1 - HYPO-OSMOLALITY AND HYPONATREMIA Status: Acute (4) DJD (degenerative joint disease) of cervical spine Code(s): M47.812 - SPONDYLOSIS W/O MYELOPATHY OR RADICULOPATHY, CERVICAL REGION Status: Chronic Qualifiers: Spinal osteoarthritis complication: without myelopathy or radiculopathy Qualified Code(s): M47.812 - Spondylosis without myelopathy or radiculopathy, cervical region (5) Essential hypertension Code(s): I10 - ESSENTIAL (PRIMARY) HYPERTENSION Status: Chronic (6) Hypothyroidism Code(s): E03.9 - HYPOTHYROIDISM, UNSPECIFIED Status: Chronic Qualifiers: Hypothyroidism type: unspecified Qualified Code(s): E03.9 - Hypothyroidism, unspecified (7) Hilar mass Code(s): R91.8 - OTHER NONSPECIFIC ABNORMAL FINDING OF LUNG FIELD Status: Ac minal - Plan Patient doing well with PT post stroke Insurance denied rehab, family deciding on SNF for placement. Continue ASA, Statin, BP control. F/u with pulmonology outpatient about right hilar mass
--- NOTE | 2020-05-22 13:19 | PDOC.NEUPN ---
- Subjective Encounter Date: 05/22/20 Subjective: Patient denies any new complaints since the last 24 hours. - Objective Vital Signs & Weight: Vital Signs (12 hours) Temp Pulse Pulse Resp BP BP BP 05/22/20 12:02 97.5 F L 73 10 L 132/74 05/22/20 10:27 77 149/56 H 05/22/20 09:36 64 05/22/20 08:59 126/72 131/78 05/22/20 07:57 97.3 F L 64 12 05/22/20 05:35 96.5 F L 81 20 05/22/20 01:25 97.2 F L 79 20 123/70 BP Pulse Ox 05/22/20 12:02 98 05/22/20 10:27 05/22/20 09:36 05/22/20 08:59 05/22/20 07:57 125/72 96 05/22/20 05:35 134/76 94 L 05/22/20 01:25 94 L Weight Admit Weight 128 lb 8 oz Weight 128 lb 8 oz I&O: 05/21/20 05/22/20 05/23/20 06:59 06:59 06:59 Intake Total 710 941 240 Output Total 750 Balance -40 941 240 Result Diagrams: 05/15/20 04:26 05/15/20 04:26 Radiology Reviewed by me: Yes EKG Reviewed by me: Yes ROS - Review of Systems Eyes: denies: pain, vision change, conjunctivae inflammation, eyelid inflammation, redness, other ENT: denies: ear pain, ear discharge, nose pain, nose discharge, nose congestion, mouth pain, mouth swelling, throat pain, throat swelling, other Respiratory: denies: cough, dry, shortness of breath, hemoptysis, SOB with excertion, pleuritic pain, sputum, wheezing, other Cardiovascular: denies: no pertinent history, AFIB, CAD, CHF, HTN, [place], Syncope, Hyperlipidemia, Mitral valve stenosis, Aortic stenosis, Valve insufficiency, Pulmonary hypertension, Other Gastrointestinal: denies: nausea, vomiting, abdominal pain, diarrhea, constipation, melena, hematochezia, other Genitourinary: denies: dysuria, frequency, incontinence, hematuria, retention, other Musculoskeletal: denies: neck pain, shoulder pain, arm pain, back pain, hand pain, leg pain, foot pain, other Skin: denies: rash, lesions, lashay, bruising, other Neurological: denies: weakness, numbness, incoordination, change in speech, confusion, seizures, other - Medication Medications: Active Medications Generic Name Dose Route Start Last Admin Trade Name Freq PRN Reason Stop Dose Admin Acetaminophen 650 mg 05/13/20 11:51 05/19/20 05:18 Acetaminophen 325 Mg Tab PO 650 mg Q6H PRN Administration Fever/Mild Pain (1-3) Hydrocodone Bitart/Acetaminophen 1 tab 05/17/20 08:26 05/22/20 05:24 Hydrocodone/Acetaminophen 5/325 Mg Tablet PO 1 tab Q4H PRN Administration Moderate Pain (4-6) Amlodipine Besylate 10 mg 05/17/20 09:00 05/22/20 09:36 Amlodipine 10 Mg Tab PO 10 mg DAILY NAE Administration Aspirin 81 mg 05/12/20 09:00 05/22/20 09:36 Aspirin 81 Mg Enteric Coated Tablet PO 81 mg DAILY NAE Administration Atorvastatin Calcium 40 mg 05/11/20 21:00 05/21/20 20:50 Atorvastatin Calcium 40 Mg Tab PO 40 mg HS NAE Administration Bisacodyl 10 mg 05/17/20 08:26 05/21/20 09:38 Bisacodyl 5 Mg Tab PO 10 mg DAILYPRN PRN Administration Constipation Enoxaparin Sodium 40 mg 05/12/20 09:00 05/22/20 09:37 Enoxaparin Sodium 40 Mg/0.4 Ml Syringe SC 40 mg 0900 NAE Administration Famotidine 20 mg 05/17/20 09:00 05/22/20 09:36 Famotidine 20 Mg Tab PO 20 mg BID NAE Administration Hydralazine HCl 25 mg 05/18/20 21:00 05/22/20 09:36 Hydralazine 25 Mg Tab PO 25 mg BID NAE Administration Labetalol HCl 10 mg 05/15/20 03:07 05/18/20 10:23 Labetalol Hcl 100 Mg/20 Ml Vial SLOW IVP 10 mg Q1H PRN Administration SBP Greater Than 180 Levothyroxine Sodium 75 mcg 05/15/20 06:00 05/22/20 05:24 Levothyroxine Sodium 75 Mcg Tab PO 75 mcg 0600 NAE Administration Lidocaine 1 patch 05/15/20 09:00 05/22/20 09:37 Lidocaine 5% Patch TD 1 patch DAILY NAE Administration Miscellaneous Medication 1 each 05/15/20 21:00 05/21/20 20:51 Lidocaine Patch Removal 1 Each TOP 1 each 2100 NAE Administration Senna/Docusate Sodium 2 tab 05/17/20 08:26 05/21/20 19:08 Senokot S 8.6-50 Mg Tab PO 2 tab BID PRN Administration Constipation Sodium Chloride 10 ml 05/11/20 14:53 05/21/20 20:50 Flush - Normal Saline 10 Ml Syringe IVF 10 ml PRN PRN Administration Saline Flush - Exam General Appearance: awake alert Eye: PERRL ENT: normocephalic atraumatic Neck: supple Respiratory: CTAB Cardiovascular: RRR Gastrointestinal: soft Extremities: no cyanosis Skin: normal turgor Neurological: facial droop, hemiplegia, speech deficit, vision deficit Musculoskeletal: normal tone, no muscle wasting PSYCH: normal affect, normal behavior, oriented to person, oriented to place Results - Labs Result Diagrams: 05/15/20 04:26 05/15/20 04:26 Lab results: WBC 9.8 thou/uL (4.8-10.8) 05/15/20 04:26 Hgb 12.8 g/dL (12.0-16.0) 05/15/20 04:26 Hct 37.6 % (36.0-47.0) 05/15/20 04:26 MCV 91.8 fL (78.0-98.0) 05/15/20 04:26 Plt Count 507 thou/uL (130-400) H 05/15/20 04:26 Neutrophils % 66.4 % (42.0-75.0) 05/15/20 04:26 Sodium 131 mmol/L (136-145) L 05/15/20 04:26 Potassium 4.7 mmol/L (3.5-5.1) 05/15/20 04:26 Chloride 99 mmol/L (98-107) 05/15/20 04:26 Carbon Dioxide 21 mmol/L (23-31) L 05/15/20 04:26 BUN 11 mg/dL (9.8-20.1) 05/15/20 04:26 Creatinine 0.68 mg/dL (0.6-1.1) 05/15/20 04:26 Glucose 84 mg/dL (83-110) 05/15/20 04:26 Calcium 8.4 mg/dL (7.8-10.44) 05/15/20 04:26 Total Bilirubin 0.3 mg/dL (0.2-1.2) 05/15/20 04:26 AST 28 U/L (5-34) 05/15/20 04:26 ALT 14 U/L (8-55) 05/15/20 04:26 Alkaline Phosphatase 74 U/L (40-110) 05/15/20 04:26 Ammonia 41 umol/L (18-72) 05/14/20 14:03 CK-MB (CK-2) 1.8 ng/mL (0-6.6) 05/11/20 13:47 Troponin I 0.015 ng/mL (< 0.028) 05/11/20 23:26 Serum Total Protein 6.9 g/dL (6.0-8.3) 05/15/20 04:26 Albumin 3.2 g/dL (3.4-4.8) L 05/15/20 04:26 Urine Ketones Negative mg/dL (Negative) 05/14/20 15:42 Urine Blood 3+ (Negative) A 05/14/20 15:42 Urine Nitrite Negative (Negative) 05/14/20 15:42 Ur Leukocyte Esterase Negative Jennifer/uL (Negative) 05/14/20 15:42 Urine RBC Greater than 50 HPF (0-3) A 05/14/20 15:42 Urine WBC 4-6 HPF (0-3) A 05/14/20 15:42 Ur Squamous Epith Cells 0-3 HPF (0-3) 05/14/20 15:42 Urine Bacteria None Seen HPF (None Seen) 05/14/20 15:42 PN A/P (1) Acute CVA (cerebrovascular accident) Code(s): I63.9 - CEREBRAL INFARCTION, UNSPECIFIED Status: Acute (2) Electrolyte imbalance Code(s): E87.8 - OTH DISORDERS OF ELECTROLYTE AND FLUID BALANCE, NEC Status: Deleted (3) Hilar mass Code(s): R91.8 - OTHER NONSPECIFIC ABNORMAL FINDING OF LUNG FIELD Status: Acute (4) Neck pain Code(s): M54.2 - CERVICALGIA Status: Acute (5) Essential hypertension Code(s): I10 - ESSENTIAL (PRIMARY) HYPERTENSION Status: Chronic - Plan Daily Plan: PT/OT, speech therapy Consults: Other Ms. Norton is a 85-year-old female who presented with altered mental status and acute onset left-sided weakness. Imaging consistent with acute infarction. Patient alert and doing much better and denies any new complaints. Case management on board regarding discharge planning. Awaiting discharge to rehab facility. MRI of the brain reviewed which was consistent with acute infarction in the right thalamus and also in the left caudate. EEG reviewed which was negative for seizure activity. CTA of the head and neck did not reveal hemodynamically significant stenosis. Continue telemetry to rule out arrhythmias. 2D echo showed normal left ventricular ejection fraction with no thrombus and PFO.. Continue aspirin and high intensity statin for secondary stroke prevention. Continue home medications. Strict control of blood glucose and blood pressure. Continue medical management per primary team. PT/OT/speech. Plan discussed with the team.
[2020-05-22] MEDS: Lidocaine Patch Removal 1 EACH TOP SCH (20:51)
[2020-05-22] MEDS: Atorvastatin Calcium 40 MG TAB PO SCH (20:51)
[2020-05-23] MEDS: Levothyroxine Sodium 75 MCG TAB PO SCH (06:21)
--- NOTE | 2020-05-23 07:30 | PDOC.HOSPP ---
- Subjective Encounter Date: 05/23/20 Encounter Time: 09:00 Subjective: Patient without event overnight. Not ambulating with PT the past couple days due to fatigue. Sleeping this AM, but will talk if questioned. Keeps eyes closed. No complaints. States she is trying to go to the bathroom right now. - Objective Vital Signs & Weight: Vital Signs (12 hours) Temp Pulse Resp BP BP Pulse Ox 05/23/20 04:00 96.7 F L 90 16 144/81 H 97 05/23/20 01:36 97.1 F L 95 16 126/78 98 05/22/20 20:51 101 H 05/22/20 20:32 97.9 F 101 H 16 138/83 95 05/22/20 20:00 95 Weight Admit Weight 128 lb 8 oz Weight 128 lb 8 oz I&O: 05/22/20 05/23/20 05/24/20 06:59 06:59 06:59 Intake Total 941 870 Balance 941 870 Result Diagrams: 05/15/20 04:26 05/15/20 04:26 Hospitalist ROS - Review of Systems Constitutional: denies: fever Respiratory: denies: cough, shortness of breath Cardiovascular: denies: chest pain, palpitations Gastrointestinal: denies: nausea, vomiting, abdominal pain - Medication Medications: Active Medications Generic Name Dose Route Start Last Admin Trade Name Freq PRN Reason Stop Dose Admin Acetaminophen 650 mg 05/13/20 11:51 05/19/20 05:18 Acetaminophen 325 Mg Tab PO 650 mg Q6H PRN Administration Fever/Mild Pain (1-3) Hydrocodone Bitart/Acetaminophen 1 tab 05/17/20 08:26 05/22/20 05:24 Hydrocodone/Acetaminophen 5/325 Mg Tablet PO 1 tab Q4H PRN Administration Moderate Pain (4-6) Amlodipine Besylate 10 mg 05/17/20 09:00 05/22/20 09:36 Amlodipine 10 Mg Tab PO 10 mg DAILY NAE Administration Aspirin 81 mg 05/12/20 09:00 05/22/20 09:36 Aspirin 81 Mg Enteric Coated Tablet PO 81 mg DAILY NAE Administration Atorvastatin Calcium 40 mg 05/11/20 21:00 05/22/20 20:51 Atorvastatin Calcium 40 Mg Tab PO 40 mg HS NAE Administration Bisacodyl 10 mg 05/17/20 08:26 05/21/20 09:38 Bisacodyl 5 Mg Tab PO 10 mg DAILYPRN PRN Administration Constipation Enoxaparin Sodium 40 mg 05/12/20 09:00 05/22/20 09:37 Enoxaparin Sodium 40 Mg/0.4 Ml Syringe SC 40 mg 0900 NAE Administration Famotidine 20 mg 05/17/20 09:00 05/22/20 20:51 Famotidine 20 Mg Tab PO 20 mg BID NAE Administration Hydralazine HCl 25 mg 05/18/20 21:00 05/22/20 20:51 Hydralazine 25 Mg Tab PO 25 mg BID NAE Administration Labetalol HCl 10 mg 05/15/20 03:07 05/18/20 10:23 Labetalol Hcl 100 Mg/20 Ml Vial SLOW IVP 10 mg Q1H PRN Administration SBP Greater Than 180 Levothyroxine Sodium 75 mcg 05/15/20 06:00 05/23/20 06:21 Levothyroxine Sodium 75 Mcg Tab PO 75 mcg 0600 NAE Administration Lidocaine 1 patch 05/15/20 09:00 05/22/20 09:37 Lidocaine 5% Patch TD 1 patch DAILY NAE Administration Miscellaneous Medication 1 each 05/15/20 21:00 05/22/20 20:51 Lidocaine Patch Removal 1 Each TOP 1 each 2100 NAE Administration Senna/Docusate Sodium 2 tab 05/17/20 08:26 05/21/20 19:08 Senokot S 8.6-50 Mg Tab PO 2 tab BID PRN Administration Constipation Sodium Chloride 10 ml 05/11/20 14:53 05/21/20 20:50 Flush - Normal Saline 10 Ml Syringe IVF 10 ml PRN PRN Administration Saline Flush - Exam General Appearance: NAD General - other findings: sleeping, arousable but doesn't open eyes ENT: moist mucosa Heart: RRR, no murmur, no gallops, no rubs Respiratory: CTAB, no wheezes, no rales, no ronchi Gastrointestinal: soft, non-tender, non-distended, normal bowel sounds Extremities: no edema Psychiatric: lethargic Hosp A/P (1) Acute CVA (cerebrovascular accident) Code(s): I63.9 - CEREBRAL INFARCTION, UNSPECIFIED Status: Acute (2) Oropharyngeal dysphagia Code(s): R13.12 - DYSPHAGIA, OROPHARYNGEAL PHASE Status: Acute (3) Hyponatremia Code(s): E87.1 - HYPO-OSMOLALITY AND HYPONATREMIA Status: Acute (4) DJD (degenerative joint disease) of cervical spine Code(s): M47.812 - SPONDYLOSIS W/O MYELOPATHY OR RADICULOPATHY, CERVICAL REGION Status: Chronic Qualifiers: Spinal osteoarthritis complication: without myelopathy or radiculopathy Qualified Code(s): M47.812 - Spondylosis without myelopathy or radiculopathy, cervical region (5) Essential hypertension Code(s): I10 - ESSENTIAL (PRIMARY) HYPERTENSION Status: Chronic (6) Hypothyroidism Code(s): E03.9 - HYPOTHYROIDISM, UNSPECIFIED Status: Chronic Qualifiers: Hypothyroidism type: unspecified Qualified Code(s): E03.9 - Hypothyroidism, unspecified (7) Hilar mass Code(s): R91.8 - OTHER NONSPECIFIC ABNORMAL FINDING OF LUNG FIELD Status: Acute - Plan Patient was doing well with PT post stroke, but not wanting to participate for past couple days Insurance denied rehab, family appealing and deciding on SNF for placement. Continue ASA, Statin, BP control. F/u with pulmonology outpatient about right hilar mass
[2020-05-23] MEDS: Enoxaparin Sodium 40 MG/0.4 ML SYRINGE SC SCH (09:46)
[2020-05-23] MEDS: Famotidine 20 MG TAB PO SCH ×2 (09:48→20:29)
[2020-05-23] MEDS: Amlodipine 10 MG TAB PO SCH (09:48)
[2020-05-23] MEDS: hydrALAZINE 25 MG TAB PO SCH ×2 (09:48→20:27)
[2020-05-23] MEDS: HYDROcodone/Acetaminophen 5/325 mg Tablet PO PRN ×2 (09:48→20:30)
[2020-05-23] MEDS: Aspirin 81 mg Enteric Coated Tablet PO SCH (09:48)
[2020-05-23] MEDS: Senokot S 8.6-50 MG TAB PO PRN (09:49)
[2020-05-23] MEDS: Lidocaine 5% Patch TD SCH (09:49)
--- NOTE | 2020-05-23 11:50 | PDOC.NEUPN ---
- Subjective Encounter Date: 05/23/20 Subjective: Patient very somnolent this morning but oriented to herself and place. - Objective Vital Signs & Weight: Vital Signs (12 hours) Temp Pulse Resp BP BP Pulse Ox 05/23/20 11:36 97.3 F L 89 12 129/77 96 05/23/20 11:34 97.3 F L 89 12 129/77 96 05/23/20 09:48 99 05/23/20 07:44 97.3 F L 99 12 142/81 H 95 05/23/20 07:40 95 05/23/20 07:37 97.3 F L 99 12 142/81 H 95 05/23/20 04:00 96.7 F L 90 16 144/81 H 97 05/23/20 01:36 97.1 F L 95 16 126/78 98 Weight Admit Weight 128 lb 8 oz Weight 128 lb 8 oz I&O: 05/22/20 05/23/20 05/24/20 06:59 06:59 06:59 Intake Total 941 870 300 Balance 941 870 300 Result Diagrams: 05/15/20 04:26 05/15/20 04:26 Radiology Reviewed by me: Yes EKG Reviewed by me: Yes ROS - Review of Systems ROS unobtainable: due to mental status - Medication Medications: Active Medications Generic Name Dose Route Start Last Admin Trade Name Freq PRN Reason Stop Dose Admin Acetaminophen 650 mg 05/13/20 11:51 05/19/20 05:18 Acetaminophen 325 Mg Tab PO 650 mg Q6H PRN Administration Fever/Mild Pain (1-3) Hydrocodone Bitart/Acetaminophen 1 tab 05/17/20 08:26 05/23/20 09:48 Hydrocodone/Acetaminophen 5/325 Mg Tablet PO 1 tab Q4H PRN Administration Moderate Pain (4-6) Amlodipine Besylate 10 mg 05/17/20 09:00 05/23/20 09:48 Amlodipine 10 Mg Tab PO 10 mg DAILY NAE Administration Aspirin 81 mg 05/12/20 09:00 05/23/20 09:48 Aspirin 81 Mg Enteric Coated Tablet PO 81 mg DAILY NAE Administration Atorvastatin Calcium 40 mg 05/11/20 21:00 05/22/20 20:51 Atorvastatin Calcium 40 Mg Tab PO 40 mg HS NAE Administration Bisacodyl 10 mg 05/17/20 08:26 05/21/20 09:38 Bisacodyl 5 Mg Tab PO 10 mg DAILYPRN PRN Administration Constipation Enoxaparin Sodium 40 mg 05/12/20 09:00 05/23/20 09:46 Enoxaparin Sodium 40 Mg/0.4 Ml Syringe SC 40 mg 0900 NAE Administration Famotidine 20 mg 05/17/20 09:00 05/23/20 09:48 Famotidine 20 Mg Tab PO 20 mg BID NAE Administration Hydralazine HCl 25 mg 05/18/20 21:00 05/23/20 09:48 Hydralazine 25 Mg Tab PO 25 mg BID NAE Administration Labetalol HCl 10 mg 05/15/20 03:07 05/18/20 10:23 Labetalol Hcl 100 Mg/20 Ml Vial SLOW IVP 10 mg Q1H PRN Administration SBP Greater Than 180 Levothyroxine Sodium 75 mcg 05/15/20 06:00 05/23/20 06:21 Levothyroxine Sodium 75 Mcg Tab PO 75 mcg 0600 NAE Administration Lidocaine 1 patch 05/15/20 09:00 05/23/20 09:49 Lidocaine 5% Patch TD 1 patch DAILY NAE Administration Miscellaneous Medication 1 each 05/15/20 21:00 05/22/20 20:51 Lidocaine Patch Removal 1 Each TOP 1 each 2100 NAE Administration Senna/Docusate Sodium 2 tab 05/17/20 08:26 05/23/20 09:49 Senokot S 8.6-50 Mg Tab PO 2 tab BID PRN Administration Constipation Sodium Chloride 10 ml 05/11/20 14:53 05/21/20 20:50 Flush - Normal Saline 10 Ml Syringe IVF 10 ml PRN PRN Administration Saline Flush - Exam General Appearance: NAD Eye: PERRL ENT: normocephalic atraumatic Neck: supple Respiratory: CTAB Cardiovascular: RRR Gastrointestinal: soft Extremities: no cyanosis Skin: normal turgor Neurological: no new deficit Musculoskeletal: generalized weakness PSYCH: oriented to person, oriented to place, somnolent Results - Labs Result Diagrams: 05/15/20 04:26 05/15/20 04:26 Lab results: WBC 9.8 thou/uL (4.8-10.8) 05/15/20 04:26 Hgb 12.8 g/dL (12.0-16.0) 05/15/20 04:26 Hct 37.6 % (36.0-47.0) 05/15/20 04:26 MCV 91.8 fL (78.0-98.0) 05/15/20 04:26 Plt Count 507 thou/uL (130-400) H 05/15/20 04:26 Neutrophils % 66.4 % (42.0-75.0) 05/15/20 04:26 Sodium 131 mmol/L (136-145) L 05/15/20 04:26 Potassium 4.7 mmol/L (3.5-5.1) 05/15/20 04:26 Chloride 99 mmol/L (98-107) 05/15/20 04:26 Carbon Dioxide 21 mmol/L (23-31) L 05/15/20 04:26 BUN 11 mg/dL (9.8-20.1) 05/15/20 04:26 Creatinine 0.68 mg/dL (0.6-1.1) 05/15/20 04:26 Glucose 84 mg/dL (83-110) 05/15/20 04:26 Calcium 8.4 mg/dL (7.8-10.44) 05/15/20 04:26 Total Bilirubin 0.3 mg/dL (0.2-1.2) 05/15/20 04:26 AST 28 U/L (5-34) 05/15/20 04:26 ALT 14 U/L (8-55) 05/15/20 04:26 Alkaline Phosphatase 74 U/L (40-110) 05/15/20 04:26 Ammonia 41 umol/L (18-72) 05/14/20 14:03 CK-MB (CK-2) 1.8 ng/mL (0-6.6) 05/11/20 13:47 Troponin I 0.015 ng/mL (< 0.028) 05/11/20 23:26 Serum Total Protein 6.9 g/dL (6.0-8.3) 05/15/20 04:26 Albumin 3.2 g/dL (3.4-4.8) L 05/15/20 04:26 Urine Ketones Negative mg/dL (Negative) 05/14/20 15:42 Urine Blood 3+ (Negative) A 05/14/20 15:42 Urine Nitrite Negative (Negative) 05/14/20 15:42 Ur Leukocyte Esterase Negative Jennifer/uL (Negative) 05/14/20 15:42 Urine RBC Greater than 50 HPF (0-3) A 05/14/20 15:42 Urine WBC 4-6 HPF (0-3) A 05/14/20 15:42 Ur Squamous Epith Cells 0-3 HPF (0-3) 05/14/20 15:42 Urine Bacteria None Seen HPF (None Seen) 05/14/20 15:42 PN A/P (1) Acute CVA (cerebrovascular accident) Code(s): I63.9 - CEREBRAL INFARCTION, UNSPECIFIED Status: Acute (2) Electrolyte imbalance Code(s): E87.8 - OTH DISORDERS OF ELECTROLYTE AND FLUID BALANCE, NEC Status: Deleted (3) Hilar mass Code(s): R91.8 - OTHER NONSPECIFIC ABNORMAL FINDING OF LUNG FIELD Status: Acute (4) Neck pain Code(s): M54.2 - CERVICALGIA Status: Acute (5) Essential hypertension Code(s): I10 - ESSENTIAL (PRIMARY) HYPERTENSION Status: Chronic - Plan Daily Plan: PT/OT, speech therapy, DVT proph w/SCDs Ms. Norton is a 85-year-old female who presented with altered mental status and acute onset left-sided weakness. Imaging consistent with acute infarction. Patient very somnolent and weak this morning. Will repeat EEG to rule out cortical irritability. Case management on board regarding discharge planning. Awaiting discharge to rehab facility. MRI of the brain reviewed which was consistent with acute infarction in the right thalamus and also in the left caudate. EEG reviewed which was negative for seizure activity. CTA of the head and neck did not reveal hemodynamically significant stenosis. Continue telemetry to rule out arrhythmias. 2D echo showed normal left ventricular ejection fraction with no thrombus and PFO.. Continue aspirin and high intensity statin for secondary stroke prevention. Continue home medications. Strict control of blood glucose and blood pressure. Continue medical management per primary team. PT/OT/speech. Plan discussed with the team.
[2020-05-23] MEDS ORDERED: Bisacodyl 10 MG SUPP PR PRN (16:40)
--- NOTE | 2020-05-23 16:44 | PDOC.EVN ---
Event Note - Event Note Event Note: Patient complaining of pain with trying to defecate all day. Has had frequent BM listed but small and smears. Rectal exam done with nurse at bedside. Rectal vault full of claylike stool. Not too hard. Large amount removed from distal rectum digitally with moderate discomfort. Remainder of stool in vault softer. Will add Dulcolax suppository and daily Miralax. Continue prn Senna as well.
[2020-05-23] MEDS: Atorvastatin Calcium 40 MG TAB PO SCH (20:27)
[2020-05-23] MEDS: Lidocaine Patch Removal 1 EACH TOP SCH (20:29)
--- NOTE | 2020-05-23 21:37 | PDOC.EEG ---
Neurology EEG Report - Report Report: This EEG was performed using 24 channel [employer] video digital EEG machine with 24 disc electrodes. Digital analysis of the EEG was done for Kenan and seizure detection which revealed no abnormalities. Background: The posterior background rhythm is not observed Photic stimulation: No response seen with photic stimulation. Hyperventilation: Not performed. Sleep: No stage change observed EEG diagnosis: Intermittent irregular theta activity seen throughout the recording . Absence of posterior background rhythm Clinical interpretation: This EEG is consistent with moderate generalized nonspecific cerebral dysfunction.
[2020-05-24 05:25] LABS: #Basophils 0.1 thou/uL (0.0-0.2); #Eosinphils 0.3 thou/uL (0.0-0.7); #Lymphocytes 1.4 thou/uL (1.20-3.40); #Monocytes 1.7 thou/uL (0.11-0.59); #Neutrophils 10.8 thou/uL (1.40-6.50); %Basophils 0.4 % (0.0-1.0); %Eosinophils 2.4 % (0.0-10.0); %Lymphocytes 9.7 % (21.0-51.0); %Monocytes 11.6 % (0.0-10.0); %Neutrophils 75.9 % (42.0-75.0); Hemoglobin 12.6 g/dL (12.0-16.0); Mean Corpuscular HGB CONC 32.3 g/dL (32.0-36.0); Mean Corpuscular Hemoglobin 30.2 pg (27.0-31.0); Mean Corpuscular Volume 93.4 fL (78.0-98.0); Mean Platelet Volume 6.3 fL (7.4-10.4); Platelet Count 608 thou/uL (130-400); RBC Distribution Width 13.1 % (11.5-14.5); Red Blood Cell (RBC) Count 4.17 mill/uL (4.20-5.40); White Blood Cell (WBC) Count 14.3 thou/uL (4.8-10.8)
[2020-05-24 05:32] LABS: Anion Gap 14 mmol/L (10-20); BUN (Urea Nitrogen) 21 mg/dL (9.8-20.1); Calc. Creatinine Clearance 47 mL/min (70-130); Carbon Dioxide 27 mmol/L (23-31); Chloride 97 mmol/L (98-107); Glucose 119 mg/dL (83-110); Potassium 3.9 mmol/L (3.5-5.1); Sodium 134 mmol/L (136-145)
[2020-05-24] MEDS: Levothyroxine Sodium 75 MCG TAB PO SCH (06:11)
--- NOTE | 2020-05-24 08:09 | PDOC.HOSPP ---
- Subjective Encounter Date: 05/24/20 Encounter Time: 09:00 Subjective: Patient without complaints this morning. 2 Bowel movements listed on SEP for yesterday. - Objective Vital Signs & Weight: Vital Signs (12 hours) Temp Pulse Resp BP BP Pulse Ox 05/24/20 04:06 97.5 F L 106 H 16 123/63 96 05/23/20 23:13 97.4 F L 100 16 146/78 H 95 05/23/20 20:29 96 05/23/20 20:27 119 H 117/77 Weight Admit Weight 128 lb 8 oz Weight 128 lb 8 oz I&O: 05/23/20 05/24/20 05/25/20 06:59 06:59 06:59 Intake Total 870 300 Balance 870 300 Result Diagrams: 05/24/20 04:57 05/24/20 04:57 Hospitalist ROS - Review of Systems Constitutional: denies: fever, chills Respiratory: denies: cough, shortness of breath Cardiovascular: denies: chest pain, palpitations Gastrointestinal: denies: nausea, vomiting, abdominal pain - Medication Medications: Active Medications Generic Name Dose Route Start Last Admin Trade Name Freq PRN Reason Stop Dose Admin Acetaminophen 650 mg 05/13/20 11:51 05/19/20 05:18 Acetaminophen 325 Mg Tab PO 650 mg Q6H PRN Administration Fever/Mild Pain (1-3) Hydrocodone Bitart/Acetaminophen 1 tab 05/17/20 08:26 05/23/20 20:30 Hydrocodone/Acetaminophen 5/325 Mg Tablet PO 1 tab Q4H PRN Administration Moderate Pain (4-6) Amlodipine Besylate 10 mg 05/17/20 09:00 05/23/20 09:48 Amlodipine 10 Mg Tab PO 10 mg DAILY NAE Administration Aspirin 81 mg 05/12/20 09:00 05/23/20 09:48 Aspirin 81 Mg Enteric Coated Tablet PO 81 mg DAILY NAE Administration Atorvastatin Calcium 40 mg 05/11/20 21:00 05/23/20 20:27 Atorvastatin Calcium 40 Mg Tab PO 40 mg HS NAE Administration Bisacodyl 10 mg 05/17/20 08:26 05/21/20 09:38 Bisacodyl 5 Mg Tab PO 10 mg DAILYPRN PRN Administration Constipation Bisacodyl 10 mg 05/23/20 16:40 05/23/20 18:17 Bisacodyl 10 Mg Supp SC 10 mg DAILYPRN PRN Administration Constipation Enoxaparin Sodium 40 mg 05/12/20 09:00 05/23/20 09:46 Enoxaparin Sodium 40 Mg/0.4 Ml Syringe SC 40 mg 0900 NAE Administration Famotidine 20 mg 05/17/20 09:00 05/23/20 20:29 Famotidine 20 Mg Tab PO 20 mg BID NAE Administration Hydralazine HCl 25 mg 05/18/20 21:00 05/23/20 20:27 Hydralazine 25 Mg Tab PO 25 mg BID NAE Administration Labetalol HCl 10 mg 05/15/20 03:07 05/18/20 10:23 Labetalol Hcl 100 Mg/20 Ml Vial SLOW IVP 10 mg Q1H PRN Administration SBP Greater Than 180 Levothyroxine Sodium 75 mcg 05/15/20 06:00 05/24/20 06:11 Levothyroxine Sodium 75 Mcg Tab PO 75 mcg 0600 NAE Administration Lidocaine 1 patch 05/15/20 09:00 05/23/20 09:49 Lidocaine 5% Patch TD 1 patch DAILY NAE Administration Miscellaneous Medication 1 each 05/15/20 21:00 05/23/20 20:29 Lidocaine Patch Removal 1 Each TOP 1 each 2100 NAE Administration Senna/Docusate Sodium 2 tab 05/17/20 08:26 05/23/20 09:49 Senokot S 8.6-50 Mg Tab PO 2 tab BID PRN Administration Constipation Sodium Chloride 10 ml 05/11/20 14:53 05/21/20 20:50 Flush - Normal Saline 10 Ml Syringe IVF 10 ml PRN PRN Administration Saline Flush - Exam General Appearance: NAD General - other findings: Keeps eyes closed but answers questions ENT: moist mucosa Heart: RRR, no murmur, no gallops, no rubs Respiratory: CTAB, no wheezes, no rales, no ronchi Gastrointestinal: soft, non-tender, non-distended, normal bowel sounds Psychiatric: normal affect, normal behavior, lethargic Hosp A/P (1) Acute CVA (cerebrovascular accident) Code(s): I63.9 - CEREBRAL INFARCTION, UNSPECIFIED Status: Acute (2) Oropharyngeal dysphagia Code(s): R13.12 - DYSPHAGIA, OROPHARYNGEAL PHASE Status: Acute (3) Hyponatremia Code(s): E87.1 - HYPO-OSMOLALITY AND HYPONATREMIA Status: Acute (4) DJD (degenerative joint disease) of cervical spine Code(s): M47.812 - SPONDYLOSIS W/O MYELOPATHY OR RADICULOPATHY, CERVICAL REGION Status: Chronic Qualifiers: Spinal osteoarthritis complication: without myelopathy or radiculopathy Qualified Code(s): M47.812 - Spondylosis without myelopathy or radiculopathy, cervical region (5) Essential hypertension Code(s): I10 - ESSENTIAL (PRIMARY) HYPERTENSION Status: Chronic (6) Hypothyroidism Code(s): E03.9 - HYPOTHYROIDISM, UNSPECIFIED Status: Chronic Qualifiers: Hypothyroidism type: unspecified Qualified Code(s): E03.9 - Hypothyroidism, unspecified (7) Hilar mass Code(s): R91.8 - OTHER NONSPECIFIC ABNORMAL FINDING OF LUNG FIELD Status: Acute - Plan Patient was doing well with PT post stroke, but not wanting to participate for past couple days Insurance denied rehab, family appealing and deciding on SNF for placement. Continue ASA, Statin, BP control. Lack of BM for some time. Disimpacted last night and Miralax/suppositories added. Will change Senna to scheduled. F/u with pulmonology outpatient about right hilar mass
[2020-05-24] MEDS: Lidocaine 5% Patch TD SCH (10:19)
[2020-05-24] MEDS: Aspirin 81 mg Enteric Coated Tablet PO SCH (10:20)
[2020-05-24] MEDS: Famotidine 20 MG TAB PO SCH ×2 (10:20→21:45)
[2020-05-24] MEDS: hydrALAZINE 25 MG TAB PO SCH ×2 (10:20→21:45)
[2020-05-24] MEDS: Polyethylene Glycol 3350 17 GM Packet PO SCH (10:21)
[2020-05-24] MEDS: Enoxaparin Sodium 40 MG/0.4 ML SYRINGE SC SCH (10:21)
[2020-05-24] MEDS: Amlodipine 10 MG TAB PO SCH (10:21)
--- NOTE | 2020-05-24 14:07 | PDOC.NEUPN ---
- Subjective Encounter Date: 05/24/20 Subjective: No new complaints since the last 24 hours. She seems to be agitated but oriented to herself and place - Objective Vital Signs & Weight: Vital Signs (12 hours) Temp Pulse Pulse Pulse Resp BP BP 05/24/20 12:00 97.3 F L 85 14 05/24/20 09:40 98 102 H 113/68 107/72 05/24/20 08:00 97.3 F L 86 14 05/24/20 04:06 97.5 F L 106 H 16 BP BP Pulse Ox 05/24/20 12:00 118/72 96 05/24/20 09:40 05/24/20 08:00 121/79 95 05/24/20 04:06 123/63 96 Weight Admit Weight 128 lb 8 oz Weight 128 lb 8 oz I&O: 05/23/20 05/24/20 05/25/20 06:59 06:59 06:59 Intake Total 870 500 598 Balance 870 500 598 Result Diagrams: 05/24/20 04:57 05/24/20 04:57 Radiology Reviewed by me: Yes EKG Reviewed by me: Yes ROS - Review of Systems ROS unobtainable: due to mental status - Medication Medications: Active Medications Generic Name Dose Route Start Last Admin Trade Name Freq PRN Reason Stop Dose Admin Acetaminophen 650 mg 05/13/20 11:51 05/19/20 05:18 Acetaminophen 325 Mg Tab PO 650 mg Q6H PRN Administration Fever/Mild Pain (1-3) Hydrocodone Bitart/Acetaminophen 1 tab 05/17/20 08:26 05/23/20 20:30 Hydrocodone/Acetaminophen 5/325 Mg Tablet PO 1 tab Q4H PRN Administration Moderate Pain (4-6) Amlodipine Besylate 10 mg 05/17/20 09:00 05/24/20 10:21 Amlodipine 10 Mg Tab PO 10 mg DAILY NAE Administration Aspirin 81 mg 05/12/20 09:00 05/24/20 10:20 Aspirin 81 Mg Enteric Coated Tablet PO 81 mg DAILY NAE Administration Atorvastatin Calcium 40 mg 05/11/20 21:00 05/23/20 20:27 Atorvastatin Calcium 40 Mg Tab PO 40 mg HS NAE Administration Bisacodyl 10 mg 05/17/20 08:26 05/21/20 09:38 Bisacodyl 5 Mg Tab PO 10 mg DAILYPRN PRN Administration Constipation Bisacodyl 10 mg 05/23/20 16:40 05/23/20 18:17 Bisacodyl 10 Mg Supp DE 10 mg DAILYPRN PRN Administration Constipation Enoxaparin Sodium 40 mg 05/12/20 09:00 05/24/20 10:21 Enoxaparin Sodium 40 Mg/0.4 Ml Syringe SC 40 mg 0900 NAE Administration Famotidine 20 mg 05/17/20 09:00 05/24/20 10:20 Famotidine 20 Mg Tab PO 20 mg BID NAE Administration Hydralazine HCl 25 mg 05/18/20 21:00 05/24/20 10:20 Hydralazine 25 Mg Tab PO 25 mg BID NAE Administration Labetalol HCl 10 mg 05/15/20 03:07 05/18/20 10:23 Labetalol Hcl 100 Mg/20 Ml Vial SLOW IVP 10 mg Q1H PRN Administration SBP Greater Than 180 Levothyroxine Sodium 75 mcg 05/15/20 06:00 05/24/20 06:11 Levothyroxine Sodium 75 Mcg Tab PO 75 mcg 0600 NAE Administration Lidocaine 1 patch 05/15/20 09:00 05/24/20 10:19 Lidocaine 5% Patch TD 1 patch DAILY NAE Administration Miscellaneous Medication 1 each 05/15/20 21:00 05/23/20 20:29 Lidocaine Patch Removal 1 Each TOP 1 each 2100 NAE Administration Polyethylene Glycol 17 gm 05/24/20 09:00 05/24/20 10:21 Polyethylene Glycol 3350 17 Gm Packet PO 17 gm DAILY NAE Administration Sodium Chloride 10 ml 05/11/20 14:53 05/21/20 20:50 Flush - Normal Saline 10 Ml Syringe IVF 10 ml PRN PRN Administration Saline Flush - Exam General Appearance: NAD Eye: PERRL ENT: normocephalic atraumatic Neck: supple Respiratory: CTAB Cardiovascular: RRR Gastrointestinal: soft Extremities: no cyanosis Skin: normal turgor Neurological: no new deficit, facial droop, hemiplegia, vision deficit Musculoskeletal: normal tone, normal strength, no muscle wasting PSYCH: oriented to person, oriented to place Results - Labs Result Diagrams: 05/24/20 04:57 05/24/20 04:57 Lab results: WBC 14.3 thou/uL (4.8-10.8) H 05/24/20 04:57 Hgb 12.6 g/dL (12.0-16.0) 05/24/20 04:57 Hct 38.9 % (36.0-47.0) 05/24/20 04:57 MCV 93.4 fL (78.0-98.0) 05/24/20 04:57 Plt Count 608 thou/uL (130-400) H 05/24/20 04:57 Neutrophils % 75.9 % (42.0-75.0) H 05/24/20 04:57 Sodium 134 mmol/L (136-145) L 05/24/20 04:57 Potassium 3.9 mmol/L (3.5-5.1) 05/24/20 04:57 Chloride 97 mmol/L (98-107) L 05/24/20 04:57 Carbon Dioxide 27 mmol/L (23-31) 05/24/20 04:57 BUN 21 mg/dL (9.8-20.1) H 05/24/20 04:57 Creatinine 0.80 mg/dL (0.6-1.1) 05/24/20 04:57 Glucose 119 mg/dL (83-110) H 05/24/20 04:57 Calcium 9.0 mg/dL (7.8-10.44) 05/24/20 04:57 Total Bilirubin 0.3 mg/dL (0.2-1.2) 05/15/20 04:26 AST 28 U/L (5-34) 05/15/20 04:26 ALT 14 U/L (8-55) 05/15/20 04:26 Alkaline Phosphatase 74 U/L (40-110) 05/15/20 04:26 Ammonia 41 umol/L (18-72) 05/14/20 14:03 CK-MB (CK-2) 1.8 ng/mL (0-6.6) 05/11/20 13:47 Troponin I 0.015 ng/mL (< 0.028) 05/11/20 23:26 Serum Total Protein 6.9 g/dL (6.0-8.3) 05/15/20 04:26 Albumin 3.2 g/dL (3.4-4.8) L 05/15/20 04:26 Urine Ketones Negative mg/dL (Negative) 05/14/20 15:42 Urine Blood 3+ (Negative) A 05/14/20 15:42 Urine Nitrite Negative (Negative) 05/14/20 15:42 Ur Leukocyte Esterase Negative Jennifer/uL (Negative) 05/14/20 15:42 Urine RBC Greater than 50 HPF (0-3) A 05/14/20 15:42 Urine WBC 4-6 HPF (0-3) A 05/14/20 15:42 Ur Squamous Epith Cells 0-3 HPF (0-3) 05/14/20 15:42 Urine Bacteria None Seen HPF (None Seen) 05/14/20 15:42 - Radiology Interpretation CT scan - head Additional Comment: No acute intracranial pathology PN A/P (1) Acute CVA (cerebrovascular accident) Code(s): I63.9 - CEREBRAL INFARCTION, UNSPECIFIED Status: Acute (2) Electrolyte imbalance Code(s): E87.8 - OTH DISORDERS OF ELECTROLYTE AND FLUID BALANCE, NEC Status: Deleted (3) Hilar mass Code(s): R91.8 - OTHER NONSPECIFIC ABNORMAL FINDING OF LUNG FIELD Status: Acute (4) Neck pain Code(s): M54.2 - CERVICALGIA Status: Acute (5) Essential hypertension Code(s): I10 - ESSENTIAL (PRIMARY) HYPERTENSION Status: Chronic - Plan Daily Plan: PT/OT, speech therapy, DVT proph w/SCDs Consults: Other (rehab) Ms. Norton is a 85-year-old female who presented with altered mental status and acute onset left-sided weakness. Imaging consistent with acute infarction. She is awake today but seems to be agitated but oriented to herself and place. No acute events since the last 24 hours. Case management on board regarding discharge planning. Awaiting discharge to rehab facility. MRI of the brain reviewed which was consistent with acute infarction in the right thalamus and also in the left caudate. EEG reviewed which was negative for seizure activity. CTA of the head and neck did not reveal hemodynamically significant stenosis. Continue telemetry to rule out arrhythmias. 2D echo showed normal left ventricular ejection fraction with no thrombus and PFO.. Continue aspirin and high intensity statin for secondary stroke prevention. Continue home medications. Strict control of blood glucose and blood pressure. Continue medical management per primary team. PT/OT/speech. Plan discussed with the nursing staff
[2020-05-24] MEDS ORDERED: Senokot S 8.6-50 MG TAB PO SCH (21:00)
[2020-05-24] MEDS: Senokot S 8.6-50 MG TAB PO SCH (21:44)
[2020-05-24] MEDS: HYDROcodone/Acetaminophen 5/325 mg Tablet PO PRN (21:44)
[2020-05-24] MEDS: Lidocaine Patch Removal 1 EACH TOP SCH (21:45)
[2020-05-24] MEDS: Atorvastatin Calcium 40 MG TAB PO SCH (21:45)
[2020-05-25] MEDS: Levothyroxine Sodium 75 MCG TAB PO SCH (05:19)
[2020-05-25] MEDS: Senokot S 8.6-50 MG TAB PO SCH ×2 (09:00→20:51)
[2020-05-25] MEDS: Lidocaine 5% Patch TD SCH (09:00)
[2020-05-25] MEDS: Famotidine 20 MG TAB PO SCH ×2 (09:00→20:51)
[2020-05-25] MEDS: Polyethylene Glycol 3350 17 GM Packet PO SCH (09:00)
[2020-05-25] MEDS: Aspirin 81 mg Enteric Coated Tablet PO SCH (09:00)
[2020-05-25] MEDS: hydrALAZINE 25 MG TAB PO SCH ×2 (09:00→20:52)
[2020-05-25] MEDS: Amlodipine 10 MG TAB PO SCH (09:00)
[2020-05-25] MEDS: Enoxaparin Sodium 40 MG/0.4 ML SYRINGE SC SCH (09:00)
--- NOTE | 2020-05-25 13:21 | PDOC.HOSPP ---
- Subjective Encounter Date: 05/25/20 Encounter Time: 07:30 Subjective: Patient seen for follow-up regarding ischemic CVA. She is sleepy but arousable, not answering questions. Could not complete review of systems. - Objective Vital Signs & Weight: Vital Signs (12 hours) Temp Pulse Resp BP BP Pulse Ox 05/25/20 11:26 97.5 F L 86 16 109/56 L 98 05/25/20 08:00 96 05/25/20 07:27 97.3 F L 86 20 136/75 96 05/25/20 04:00 97.8 F 84 16 119/83 94 L Weight Admit Weight 128 lb 8 oz Weight 128 lb 8 oz I&O: 05/24/20 05/25/20 05/26/20 06:59 06:59 06:59 Intake Total 500 1288 350 Balance 500 1288 350 Result Diagrams: 05/24/20 04:57 05/24/20 04:57 Additional Labs: Labs and MAR reviewed by me EKG Reviewed by me: Yes (Telemetry shows normal sinus rhythm) Hospitalist ROS - Review of Systems ROS unobtainable: due to mental status - Medication Medications: Active Medications Generic Name Dose Route Start Last Admin Trade Name Freq PRN Reason Stop Dose Admin Acetaminophen 650 mg 05/13/20 11:51 05/19/20 05:18 Acetaminophen 325 Mg Tab PO 650 mg Q6H PRN Administration Fever/Mild Pain (1-3) Hydrocodone Bitart/Acetaminophen 1 tab 05/17/20 08:26 05/24/20 21:44 Hydrocodone/Acetaminophen 5/325 Mg Tablet PO 1 tab Q4H PRN Administration Moderate Pain (4-6) Amlodipine Besylate 10 mg 05/17/20 09:00 05/25/20 09:00 Amlodipine 10 Mg Tab PO 10 mg DAILY NAE Administration Aspirin 81 mg 05/12/20 09:00 05/25/20 09:00 Aspirin 81 Mg Enteric Coated Tablet PO 81 mg DAILY NAE Administration Atorvastatin Calcium 40 mg 05/11/20 21:00 05/24/20 21:45 Atorvastatin Calcium 40 Mg Tab PO 40 mg HS NAE Administration Bisacodyl 10 mg 05/17/20 08:26 05/21/20 09:38 Bisacodyl 5 Mg Tab PO 10 mg DAILYPRN PRN Administration Constipation Bisacodyl 10 mg 05/23/20 16:40 05/23/20 18:17 Bisacodyl 10 Mg Supp LA 10 mg DAILYPRN PRN Administration Constipation Enoxaparin Sodium 40 mg 05/12/20 09:00 05/25/20 09:00 Enoxaparin Sodium 40 Mg/0.4 Ml Syringe SC 40 mg 0900 NAE Administration Famotidine 20 mg 05/17/20 09:00 05/25/20 09:00 Famotidine 20 Mg Tab PO 20 mg BID NAE Administration Hydralazine HCl 25 mg 05/18/20 21:00 05/25/20 09:00 Hydralazine 25 Mg Tab PO 25 mg BID NAE Administration Labetalol HCl 10 mg 05/15/20 03:07 05/18/20 10:23 Labetalol Hcl 100 Mg/20 Ml Vial SLOW IVP 10 mg Q1H PRN Administration SBP Greater Than 180 Levothyroxine Sodium 75 mcg 05/15/20 06:00 05/25/20 05:19 Levothyroxine Sodium 75 Mcg Tab PO 75 mcg 0600 NAE Administration Lidocaine 1 patch 05/15/20 09:00 05/25/20 09:00 Lidocaine 5% Patch TD 1 patch DAILY NAE Administration Miscellaneous Medication 1 each 05/15/20 21:00 05/24/20 21:45 Lidocaine Patch Removal 1 Each TOP 1 each 2100 NAE Administration Polyethylene Glycol 17 gm 05/24/20 09:00 05/25/20 09:00 Polyethylene Glycol 3350 17 Gm Packet PO 17 gm DAILY NAE Administration Senna/Docusate Sodium 2 tab 05/24/20 21:00 05/25/20 09:00 Senokot S 8.6-50 Mg Tab PO 2 tab BID NAE Administration Sodium Chloride 10 ml 05/11/20 14:53 05/21/20 20:50 Flush - Normal Saline 10 Ml Syringe IVF 10 ml PRN PRN Administration Saline Flush - Exam Eye: anicteric sclera ENT: moist mucosa Neck: supple Heart: RRR Respiratory: CTAB Gastrointestinal: soft, non-tender Skin: no rashes Psychiatric: lethargic Hosp A/P - Plan -Assessment (1) Acute CVA (cerebrovascular accident) Code(s): I63.9 - CEREBRAL INFARCTION, UNSPECIFIED Status: Acute (2) Oropharyngeal dysphagia Code(s): R13.12 - DYSPHAGIA, OROPHARYNGEAL PHASE Status: Acute (3) Hyponatremia Code(s): E87.1 - HYPO-OSMOLALITY AND HYPONATREMIA Status: Acute (4) Hilar mass Code(s): R91.8 - OTHER NONSPECIFIC ABNORMAL FINDING OF LUNG FIELD Status: Acute (5) Essential hypertension Code(s): I10 - ESSENTIAL (PRIMARY) HYPERTENSION Status: Chronic (6) Hypothyroidism Code(s): E03.9 - HYPOTHYROIDISM, UNSPECIFIED Status: Chronic Qualifiers: Hypothyroidism type: unspecified Qualified Code(s): E03.9 - Hypothyroidism, unspecified (7) DJD (degenerative joint disease) of cervical spine Code(s): M47.812 - SPONDYLOSIS W/O MYELOPATHY OR RADICULOPATHY, CERVICAL REGION Status: Chronic Qualifiers: Spinal osteoarthritis complication: without myelopathy or radiculopathy Qualified Code(s): M47.812 - Spondylosis without myelopathy or radiculopathy, cervical region - Plan Continue aspirin and statin for stroke. Continue bowel regimen. Insurance denied rehab, family appealing and deciding on SNF for placement. Sodium improving. F/u with pulmonology outpatient about right hilar mass
[2020-05-25] MEDS: HYDROcodone/Acetaminophen 5/325 mg Tablet PO PRN ×2 (16:12→20:51)
--- NOTE | 2020-05-25 18:30 | PDOC.NEUPN ---
- Subjective Encounter Date: 05/25/20 Subjective: Patient much more awake today. She was able to tell her name, place, daughter's name and her . - Objective Vital Signs & Weight: Vital Signs (12 hours) Temp Pulse Resp BP BP Pulse Ox 05/25/20 15:42 97.8 F 82 15 125/72 96 05/25/20 11:26 97.5 F L 86 16 109/56 L 98 05/25/20 08:00 96 05/25/20 07:27 97.3 F L 86 20 136/75 96 Weight Admit Weight 128 lb 8 oz Weight 128 lb 8 oz I&O: 05/24/20 05/25/20 05/26/20 06:59 06:59 06:59 Intake Total 500 1288 1425 Balance 500 1288 1425 Result Diagrams: 05/24/20 04:57 05/24/20 04:57 Radiology Reviewed by me: Yes EKG Reviewed by me: Yes ROS - Review of Systems ROS unobtainable: due to mental status - Medication Medications: Active Medications Generic Name Dose Route Start Last Admin Trade Name Freq PRN Reason Stop Dose Admin Acetaminophen 650 mg 05/13/20 11:51 05/19/20 05:18 Acetaminophen 325 Mg Tab PO 650 mg Q6H PRN Administration Fever/Mild Pain (1-3) Hydrocodone Bitart/Acetaminophen 1 tab 05/17/20 08:26 05/25/20 16:12 Hydrocodone/Acetaminophen 5/325 Mg Tablet PO 1 tab Q4H PRN Administration Moderate Pain (4-6) Amlodipine Besylate 10 mg 05/17/20 09:00 05/25/20 09:00 Amlodipine 10 Mg Tab PO 10 mg DAILY NAE Administration Aspirin 81 mg 05/12/20 09:00 05/25/20 09:00 Aspirin 81 Mg Enteric Coated Tablet PO 81 mg DAILY NAE Administration Atorvastatin Calcium 40 mg 05/11/20 21:00 05/24/20 21:45 Atorvastatin Calcium 40 Mg Tab PO 40 mg HS NAE Administration Bisacodyl 10 mg 05/17/20 08:26 05/21/20 09:38 Bisacodyl 5 Mg Tab PO 10 mg DAILYPRN PRN Administration Constipation Bisacodyl 10 mg 05/23/20 16:40 05/23/20 18:17 Bisacodyl 10 Mg Supp TN 10 mg DAILYPRN PRN Administration Constipation Enoxaparin Sodium 40 mg 05/12/20 09:00 05/25/20 09:00 Enoxaparin Sodium 40 Mg/0.4 Ml Syringe SC 40 mg 0900 NAE Administration Famotidine 20 mg 05/17/20 09:00 05/25/20 09:00 Famotidine 20 Mg Tab PO 20 mg BID NAE Administration Hydralazine HCl 25 mg 05/18/20 21:00 05/25/20 09:00 Hydralazine 25 Mg Tab PO 25 mg BID NAE Administration Labetalol HCl 10 mg 05/15/20 03:07 05/18/20 10:23 Labetalol Hcl 100 Mg/20 Ml Vial SLOW IVP 10 mg Q1H PRN Administration SBP Greater Than 180 Levothyroxine Sodium 75 mcg 05/15/20 06:00 05/25/20 05:19 Levothyroxine Sodium 75 Mcg Tab PO 75 mcg 0600 NAE Administration Lidocaine 1 patch 05/15/20 09:00 05/25/20 09:00 Lidocaine 5% Patch TD 1 patch DAILY NAE Administration Miscellaneous Medication 1 each 05/15/20 21:00 05/24/20 21:45 Lidocaine Patch Removal 1 Each TOP 1 each 2100 NAE Administration Polyethylene Glycol 17 gm 05/24/20 09:00 05/25/20 09:00 Polyethylene Glycol 3350 17 Gm Packet PO 17 gm DAILY NAE Administration Senna/Docusate Sodium 2 tab 05/24/20 21:00 05/25/20 09:00 Senokot S 8.6-50 Mg Tab PO 2 tab BID NAE Administration Sodium Chloride 10 ml 05/11/20 14:53 05/21/20 20:50 Flush - Normal Saline 10 Ml Syringe IVF 10 ml PRN PRN Administration Saline Flush - Exam General Appearance: awake alert Eye: PERRL ENT: normocephalic atraumatic Neck: supple Respiratory: CTAB Cardiovascular: RRR Gastrointestinal: soft Extremities: no cyanosis Skin: normal turgor Neurological: no new deficit Musculoskeletal: normal tone, no muscle wasting, generalized weakness PSYCH: normal affect, normal behavior, oriented to person, oriented to place Results - Labs Result Diagrams: 05/24/20 04:57 05/24/20 04:57 Lab results: WBC 14.3 thou/uL (4.8-10.8) H 05/24/20 04:57 Hgb 12.6 g/dL (12.0-16.0) 05/24/20 04:57 Hct 38.9 % (36.0-47.0) 05/24/20 04:57 MCV 93.4 fL (78.0-98.0) 05/24/20 04:57 Plt Count 608 thou/uL (130-400) H 05/24/20 04:57 Neutrophils % 75.9 % (42.0-75.0) H 05/24/20 04:57 Sodium 134 mmol/L (136-145) L 05/24/20 04:57 Potassium 3.9 mmol/L (3.5-5.1) 05/24/20 04:57 Chloride 97 mmol/L (98-107) L 05/24/20 04:57 Carbon Dioxide 27 mmol/L (23-31) 05/24/20 04:57 BUN 21 mg/dL (9.8-20.1) H 05/24/20 04:57 Creatinine 0.80 mg/dL (0.6-1.1) 05/24/20 04:57 Glucose 119 mg/dL (83-110) H 05/24/20 04:57 Calcium 9.0 mg/dL (7.8-10.44) 05/24/20 04:57 Total Bilirubin 0.3 mg/dL (0.2-1.2) 05/15/20 04:26 AST 28 U/L (5-34) 05/15/20 04:26 ALT 14 U/L (8-55) 05/15/20 04:26 Alkaline Phosphatase 74 U/L (40-110) 05/15/20 04:26 Ammonia 41 umol/L (18-72) 05/14/20 14:03 CK-MB (CK-2) 1.8 ng/mL (0-6.6) 05/11/20 13:47 Troponin I 0.015 ng/mL (< 0.028) 05/11/20 23:26 Serum Total Protein 6.9 g/dL (6.0-8.3) 05/15/20 04:26 Albumin 3.2 g/dL (3.4-4.8) L 05/15/20 04:26 Urine Ketones Negative mg/dL (Negative) 05/14/20 15:42 Urine Blood 3+ (Negative) A 05/14/20 15:42 Urine Nitrite Negative (Negative) 05/14/20 15:42 Ur Leukocyte Esterase Negative Jennifer/uL (Negative) 05/14/20 15:42 Urine RBC Greater than 50 HPF (0-3) A 05/14/20 15:42 Urine WBC 4-6 HPF (0-3) A 05/14/20 15:42 Ur Squamous Epith Cells 0-3 HPF (0-3) 05/14/20 15:42 Urine Bacteria None Seen HPF (None Seen) 05/14/20 15:42 PN A/P (1) Acute CVA (cerebrovascular accident) Code(s): I63.9 - CEREBRAL INFARCTION, UNSPECIFIED Status: Acute (2) Electrolyte imbalance Code(s): E87.8 - OTH DISORDERS OF ELECTROLYTE AND FLUID BALANCE, NEC Status: Deleted (3) Hilar mass Code(s): R91.8 - OTHER NONSPECIFIC ABNORMAL FINDING OF LUNG FIELD Status: Acute (4) Neck pain Code(s): M54.2 - CERVICALGIA Status: Acute (5) Essential hypertension Code(s): I10 - ESSENTIAL (PRIMARY) HYPERTENSION Status: Chronic - Plan Daily Plan: PT/OT, speech therapy, DVT proph w/SCDs Ms. Norton is a 85-year-old female who presented with altered mental status and acute onset left-sided weakness. Imaging consistent with acute infarction. She is awake today and oriented to herself and place. No acute events since the last 24 hours. MRI of the brain reviewed which was consistent with acute infarction in the right thalamus and also in the left caudate. EEG reviewed which was negative for seizure activity. CTA of the head and neck did not reveal hemodynamically significant stenosis. Continue telemetry to rule out arrhythmias. 2D echo showed normal left ventricular ejection fraction with no thrombus and PFO.. Continue aspirin and high intensity statin for secondary stroke prevention. Continue home medications. Strict control of blood glucose and blood pressure. Continue medical management per primary team. PT/OT/speech. Case management on board regarding discharge planning. Awaiting discharge to rehab facility. Plan discussed with the nursing staff
[2020-05-25] MEDS: Atorvastatin Calcium 40 MG TAB PO SCH (20:52)
[2020-05-25] MEDS: Lidocaine Patch Removal 1 EACH TOP SCH (20:52)
[2020-05-25] MEDS: Acetaminophen 325 MG TAB PO PRN (23:07)
[2020-05-26 05:51] LABS: #Basophils 0.1 thou/uL (0.0-0.2); #Eosinphils 0.7 thou/uL (0.0-0.7); #Monocytes 1.5 thou/uL (0.11-0.59); #Neutrophils 8.2 thou/uL (1.40-6.50); %Basophils 0.7 % (0.0-1.0); %Eosinophils 5.5 % (0.0-10.0); %Lymphocytes 16.1 % (21.0-51.0); %Monocytes 11.8 % (0.0-10.0); Mean Corpuscular HGB CONC 30.9 g/dL (32.0-36.0); Mean Corpuscular Hemoglobin 28.9 pg (27.0-31.0); Mean Corpuscular Volume 93.6 fL (78.0-98.0); Mean Platelet Volume 6.5 fL (7.4-10.4); Platelet Count 611 thou/uL (130-400); RBC Distribution Width 13.1 % (11.5-14.5); Red Blood Cell (RBC) Count 3.79 mill/uL (4.20-5.40); White Blood Cell (WBC) Count 12.4 thou/uL (4.8-10.8)
[2020-05-26 06:02] LABS: Anion Gap 14 mmol/L (10-20); BUN (Urea Nitrogen) 20 mg/dL (9.8-20.1); Calc. Creatinine Clearance 50 mL/min (70-130); Calcium 8.7 mg/dL (7.8-10.44); Carbon Dioxide 25 mmol/L (23-31); Chloride 96 mmol/L (98-107); Glucose 84 mg/dL (83-110); Potassium 3.8 mmol/L (3.5-5.1); Sodium 131 mmol/L (136-145)
[2020-05-26] MEDS: Levothyroxine Sodium 75 MCG TAB PO SCH (06:16)
[2020-05-26] MEDS: Aspirin 81 mg Enteric Coated Tablet PO SCH (09:43)
[2020-05-26] MEDS: Senokot S 8.6-50 MG TAB PO SCH (09:43)
[2020-05-26] MEDS: Lidocaine 5% Patch TD SCH (09:43)
[2020-05-26] MEDS: Bisacodyl 5 MG TAB PO PRN (09:43)
[2020-05-26] MEDS: Polyethylene Glycol 3350 17 GM Packet PO SCH (09:43)
[2020-05-26] MEDS: Famotidine 20 MG TAB PO SCH (09:43)
[2020-05-26] MEDS: hydrALAZINE 25 MG TAB PO SCH (09:44)
[2020-05-26] MEDS: Amlodipine 10 MG TAB PO SCH (09:47)
[2020-05-26] MEDS: Enoxaparin Sodium 40 MG/0.4 ML SYRINGE SC SCH (09:47)
[2020-05-26] MEDS: Acetaminophen 325 MG TAB PO PRN (10:02)
[2020-05-26 11:16] VITALS: BP 116/62; TEMP 97.8
--- NOTE | 2020-05-26 13:34 | PDOC.DS.DS ---
Provider - Provider Date of Admission: 05/11/20 15:02 Date of Discharge: 05/26/20 Admitting Provider: Arlin Salazar MD Consultations: Neurology (Dr. Schuler) Primary Care Physician: Stalin Gurrola MD Course - Hospital Course Hospital Course: Discharge diagnosis: 1. Acute ischemic cerebrovascular accident 2. Severe constipation 3. COVID-19 PCR test negative 4. Hyponatremia 5. Multilevel cervical spine degenerative changes 6. Acute metabolic encephalopathy 7. Right hilar lymphadenopathy, needs work-up as outpatient to rule out bruno gnancy. Hospital course: Patient is a pleasant 85-year-old lady who was admitted to the hospital on May 11, 2020 for altered mental status and left-sided weakness. Stroke work-up was initiated. MRI of the brain showed acute infarction involving the right thalamus and a small focus in the left caudate nucleus. She was started on aspirin and statin. She was seen by therapy services and by neurology service. 2D echocardiogram did not show obvious intracardiac thrombi, masses, vegetations, PFO or ASO. Left ventricle ejection fraction was [address] angiogram of the head and neck did not show any hemodynamically significant stenosis. There was findings suggesting a partially imaged right hilar mass of right hilar adenopathy. Follow-up CT scan of the chest was done. This showed nonspecific enlarged right hilar lymph node. This could be on the basis of malignancy, according to radiologist. Patient also complained of neck pain. Cervical spine CT scan showed multilevel degenerative changes. Her pain improved with lidocaine patch. She was recommended inpatient rehab for further management. After initially declining her for rehab, her insurance company approved on appeal. She is being discharged to inpatient rehab. Patient also had significant constipation, which improved with fecal disimpaction and bowel regimen. - Labs Lab Results: 05/26/20 04:34 05/26/20 04:34 Abnormal Lab Results - Last 48 hrs 05/26/20 04:34: Sodium 131 L, Chloride 96 L 05/26/20 04:34: WBC 12.4 H, RBC 3.79 L, Hgb 11.0 L, Hct 35.5 L, MCHC 30.9 L, Plt Count 611 H, MPV 6.5 L, Lymphocytes % 16.1 L, Monocytes % 11.8 H, Neutrophils # 8.2 H, Monocytes # 1.5 H Microbiology - Entire Visit 05/14/20 16:09 Urine Straight Catheter Urine Culture - Final NO GROWTH AT 48 HOURS - Physical Exam Vitals: Vital Signs (12 hours) Temp Pulse Resp BP BP Pulse Ox 05/26/20 11:14 97.8 F 76 16 116/62 96 05/26/20 09:47 113/55 L 05/26/20 09:44 113/55 L 05/26/20 07:27 97.4 F L 89 16 113/80 94 L 05/26/20 04:22 97.4 F L 85 14 116/68 93 L Weight Admit Weight 128 lb 8 oz Weight 128 lb 8 oz Physical Exam: The patient was seen and examined on the day of discharge. Patient denies chest pain or shortness of breath. Vital signs are stable. S1 and S2 are heard. Lungs are clear to auscultation bilaterally. Problem - Time spent with Patient (mins): 33 Plan - Discharge Medications Prescriptions: hydrALAZINE [Apresoline] 25 mg PO BID #60 tab Aspirin [Ecotrin Low Strength] 81 mg PO DAILY #30 tab Atorvastatin Calcium [Lipitor] 40 mg PO HS #30 tab Amlodipine [Norvasc] 10 mg PO DAILY #30 tab Famotidine [Pepcid] 20 mg PO BID #60 tab Home Medications: Medication Instructions Recorded Confirmed Type Levothyroxine Sodium [Synthroid] 75 mcg PO DAILY 05/12/20 05/12/20 History Amlodipine [Norvasc] 10 mg PO DAILY #30 tab 05/19/20 Rx Aspirin [Ecotrin Low Strength] 81 mg PO DAILY #30 tab 05/19/20 Rx Atorvastatin Calcium [Lipitor] 40 mg PO HS #30 tab 05/19/20 Rx Famotidine [Pepcid] 20 mg PO BID #60 tab 05/19/20 Rx hydrALAZINE [Apresoline] 25 mg PO BID #60 tab 05/19/20 Rx Lidocaine 5% Patch [Lidoderm 5% 1 patch TD DAILY patch 05/26/20 Rx Patch] Lidocaine Patch Removal 1 each TOP 2100 each 05/26/20 Rx Polyethylene Glycol 3350 [Miralax] 17 gm PO DAILY pk 05/26/20 Rx Sennosides/Docusate Sodium 2 tab PO BID tab 05/26/20 Rx [Senokot S] Allergies: prednisone Allergy (Mild, Verified 05/12/20 01:41) Pt refuses to take allopurinol Allergy (Verified 05/11/20 15:35) amoxicillin Allergy (Verified 05/11/20 15:37) azithromycin Allergy (Verified 05/11/20 15:35) Milk Containing Products Allergy (Verified 05/21/20 10:09) Penicillins Allergy (Verified 05/11/20 15:35) Sulfa (Sulfonamide Antibiotics) Allergy (Verified 05/11/20 15:37) Tetracyclines Allergy (Verified 05/11/20 15:35) - Discharge Instructions Discharge Instructions:: Transfer to [facility] You will need to follow-up with your primary care provider for evaluation of lymph node swelling in the chest. It is important to rule out malignancy. Activity:: Activity as Tolerated Nourishment:: Heart Healthy Diet Additional Dietary Instructions:: Chopped food, no stroke, Therapies:: Occupational Therapy, Physical Therapy, Speech Therapy Equipment/Supplies:: Not Applicable IV Therapy:: Not Applicable - Follow up Plan Referrals: Kaye Martin MD [Active] - 7 Days Disposition: REHABILITATION INPATIENT Quality - Care Measures CORE MEASURES:: Stroke/TIA - Stroke/TIA Did you prescribe antithrombotic therapy?: Yes Did you prescribe anticoagulant for A Fib/Flutter?: No Specify reason for no DC anticoagulant: Treatment not indicated Did you prescribe a statin medication?: Yes
--- NOTE | 2020-05-26 14:07 | PDOC.NEUPN ---
- Subjective Encounter Date: 06/02/20 Subjective: Ms. Celeste looks much better this morning. - Objective Vital Signs & Weight: Vital Signs (12 hours) Temp Pulse Resp BP BP Pulse Ox 05/26/20 11:14 97.8 F 76 16 116/62 96 05/26/20 09:47 113/55 L 94 L 05/26/20 09:44 113/55 L 05/26/20 07:27 97.4 F L 89 16 113/80 94 L 05/26/20 04:22 97.4 F L 85 14 116/68 93 L Weight Admit Weight 128 lb 8 oz Weight 128 lb 8 oz I&O: 05/25/20 05/26/20 05/27/20 06:59 06:59 06:59 Intake Total 1288 1750 Balance 1288 1750 Result Diagrams: 05/26/20 04:34 05/26/20 04:34 Radiology Reviewed by me: Yes EKG Reviewed by me: Yes ROS - Review of Systems Constitutional: denies: fever, chills, sweats, weakness, malaise, other Eyes: denies: pain, vision change, conjunctivae inflammation, eyelid inflammation, redness, other ENT: denies: ear pain, ear discharge, nose pain, nose discharge, nose congest ion, mouth pain, mouth swelling, throat pain, throat swelling, other Musculoskeletal: denies: neck pain, shoulder pain, arm pain, back pain, hand pain, leg pain, foot pain, other Neurological: reports: weakness, numbness, incoordination. denies: change in speech, confusion, seizures, other - Medication Medications: Active Medications Generic Name Dose Route Start Last Admin Trade Name Savageq PRN Reason Stop Dose Admin Acetaminophen 650 mg 05/13/20 11:51 05/26/20 10:02 Acetaminophen 325 Mg Tab PO 650 mg Q6H PRN Administration Fever/Mild Pain (1-3) Hydrocodone Bitart/Acetaminophen 1 tab 05/17/20 08:26 05/25/20 20:51 Hydrocodone/Acetaminophen 5/325 Mg Tablet PO 1 tab Q4H PRN Administration Moderate Pain (4-6) Amlodipine Besylate 10 mg 05/17/20 09:00 05/26/20 09:47 Amlodipine 10 Mg Tab PO 10 mg DAILY NAE Administration Aspirin 81 mg 05/12/20 09:00 05/26/20 09:43 Aspirin 81 Mg Enteric Coated Tablet PO 81 mg DAILY NAE Administration Atorvastatin Calcium 40 mg 05/11/20 21:00 05/25/20 20:52 Atorvastatin Calcium 40 Mg Tab PO 40 mg HS NAE Administration Bisacodyl 10 mg 05/17/20 08:26 05/26/20 09:43 Bisacodyl 5 Mg Tab PO 10 mg DAILYPRN PRN Administration Constipation Bisacodyl 10 mg 05/23/20 16:40 05/23/20 18:17 Bisacodyl 10 Mg Supp [place] 10 mg DAILYPRN PRN Administration Constipation Enoxaparin Sodium 40 mg 05/12/20 09:00 05/26/20 09:47 Enoxaparin Sodium 40 Mg/0.4 Ml Syringe SC 40 mg 0900 NAE Administration Famotidine 20 mg 05/17/20 09:00 05/26/20 09:43 Famotidine 20 Mg Tab PO 20 mg BID NAE Administration Hydralazine HCl 25 mg 05/18/20 21:00 05/26/20 09:44 Hydralazine 25 Mg Tab PO 25 mg BID NAE Administration Labetalol HCl 10 mg 05/15/20 03:07 05/18/20 10:23 Labetalol Hcl 100 Mg/20 Ml Vial SLOW IVP 10 mg Q1H PRN Administration SBP Greater Than 180 Levothyroxine Sodium 75 mcg 05/15/20 06:00 05/26/20 06:16 Levothyroxine Sodium 75 Mcg Tab PO 75 mcg 0600 NAE Administration Lidocaine 1 patch 05/15/20 09:00 05/26/20 09:43 Lidocaine 5% Patch TD 1 patch DAILY NAE Administration Miscellaneous Medication 1 each 05/15/20 21:00 05/25/20 20:52 Lidocaine Patch Removal 1 Each TOP 1 each 2100 NAE Administration Polyethylene Glycol 17 gm 05/24/20 09:00 05/26/20 09:43 Polyethylene Glycol 3350 17 Gm Packet PO 17 gm DAILY NAE Administration Senna/Docusate Sodium 2 tab 05/24/20 21:00 05/26/20 09:43 Senokot S 8.6-50 Mg Tab PO 2 tab BID NAE Administration Sodium Chloride 10 ml 05/11/20 14:53 05/21/20 20:50 Flush - Normal Saline 10 Ml Syringe IVF 10 ml PRN PRN Administration Saline Flush - Exam General Appearance: awake alert Eye: PERRL ENT: normocephalic atraumatic Neck: supple Respiratory: CTAB Cardiovascular: RRR Gastrointestinal: soft Extremities: no cyanosis Skin: normal turgor Neurological: no new deficit, facial droop, hemiplegia, speech deficit, vision deficit Musculoskeletal: generalized weakness PSYCH: normal affect, normal behavior, oriented to person, oriented to place Results - Labs Result Diagrams: 05/26/20 04:34 05/26/20 04:34 Lab results: WBC 12.4 thou/uL (4.8-10.8) H 05/26/20 04:34 Hgb 11.0 g/dL (12.0-16.0) L 05/26/20 04:34 Hct 35.5 % (36.0-47.0) L 05/26/20 04:34 MCV 93.6 fL (78.0-98.0) 05/26/20 04:34 Plt Count 611 thou/uL (130-400) H 05/26/20 04:34 Neutrophils % 66.0 % (42.0-75.0) 05/26/20 04:34 Sodium 131 mmol/L (136-145) L 05/26/20 04:34 Potassium 3.8 mmol/L (3.5-5.1) 05/26/20 04:34 Chloride 96 mmol/L (98-107) L 05/26/20 04:34 Carbon Dioxide 25 mmol/L (23-31) 05/26/20 04:34 BUN 20 mg/dL (9.8-20.1) 05/26/20 04:34 Creatinine 0.76 mg/dL (0.6-1.1) 05/26/20 04:34 Glucose 84 mg/dL (83-110) 05/26/20 04:34 Calcium 8.7 mg/dL (7.8-10.44) 05/26/20 04:34 Total Bilirubin 0.3 mg/dL (0.2-1.2) 05/15/20 04:26 AST 28 U/L (5-34) 05/15/20 04:26 ALT 14 U/L (8-55) 05/15/20 04:26 Alkaline Phosphatase 74 U/L (40-110) 05/15/20 04:26 Ammonia 41 umol/L (18-72) 05/14/20 14:03 CK-MB (CK-2) 1.8 ng/mL (0-6.6) 05/11/20 13:47 Troponin I 0.015 ng/mL (< 0.028) 05/11/20 23:26 Serum Total Protein 6.9 g/dL (6.0-8.3) 05/15/20 04:26 Albumin 3.2 g/dL (3.4-4.8) L 05/15/20 04:26 Urine Ketones Negative mg/dL (Negative) 05/14/20 15:42 Urine Blood 3+ (Negative) A 05/14/20 15:42 Urine Nitrite Negative (Negative) 05/14/20 15:42 Ur Leukocyte Esterase Negative Jennifer/uL (Negative) 05/14/20 15:42 Urine RBC Greater than 50 HPF (0-3) A 05/14/20 15:42 Urine WBC 4-6 HPF (0-3) A 05/14/20 15:42 Ur Squamous Epith Cells 0-3 HPF (0-3) 05/14/20 15:42 Urine Bacteria None Seen HPF (None Seen) 05/14/20 15:42 - Radiology Interpretation MRI - head Additional Comment: Consistent with acute infarction PN A/P (1) Acute CVA (cerebrovascular accident) Code(s): I63.9 - CEREBRAL INFARCTION, UNSPECIFIED Status: Acute (2) Electrolyte imbalance Code(s): E87.8 - OTH DISORDERS OF ELECTROLYTE AND FLUID BALANCE, NEC Status: Deleted (3) Hilar mass Code(s): R91.8 - OTHER NONSPECIFIC ABNORMAL FINDING OF LUNG FIELD Status: Acute (4) Neck pain Code(s): M54.2 - CERVICALGIA Status: Acute (5) Essential hypertension Code(s): I10 - ESSENTIAL (PRIMARY) HYPERTENSION Status: Chronic - Plan Daily Plan: PT/OT, speech therapy, DVT proph w/SCDs Ms. Norton is a 85-year-old female who presented with altered mental status and acute onset left-sided weakness. Imaging consistent with acute infarction. She feels much better today. No acute events since the last 24 hours. Case management on board regarding discharge planning. Awaiting discharge to facility most likely today. MRI of the brain reviewed which was consistent with acute infarction in the right thalamus and also in the left caudate. EEG reviewed which was negative for seizure activity. CTA of the head and neck did not reveal hemodynamically significant stenosis. Continue telemetry to rule out arrhythmias. 2D echo showed normal left ventricular ejection fraction with no thrombus and PFO.. Continue aspirin and high intensity statin for secondary stroke prevention. Continue home medications. Strict control of blood glucose and blood pressure. Continue medical management per primary team. PT/OT/speech. Plan discussed with the nursing staff
== END 2020-05-26 16:21 | DRG 64 ==
LOC: ERS 13:17 → ERHOLD 15:02 → 2SE 23:17
PROVIDERS: ADMIT Internal Medicine; ATTEND Internal Medicine
DX: I63.89 Other cerebral infarction (principal); G93.41 Metabolic encephalopathy; G81.94 Hemiplegia, unspecified affecting left nondominant side; I16.1 Hypertensive emergency; E87.1 Hypo-osmolality and hyponatremia; E87.8 Other disorders of electrolyte and fluid balance, not elsewhere classified; Z20.828 Contact with and (suspected) exposure to other viral communicable diseases; R29.707 NIHSS score 7; I10 Essential (primary) hypertension; E03.9 Hypothyroidism, unspecified; M10.9 Gout, unspecified; M25.551 Pain in right hip; E87.6 Hypokalemia; R91.8 Other nonspecific abnormal finding of lung field; M54.2 Cervicalgia; R13.12 Dysphagia, oropharyngeal phase; M47.812 Spondylosis without myelopathy or radiculopathy, cervical region; G93.89 Other specified disorders of brain; R79.89 Other specified abnormal findings of blood chemistry; K59.00 Constipation, unspecified; Z88.0 Allergy status to penicillin; Z88.1 Allergy status to other antibiotic agents; Z88.2 Allergy status to sulfonamides; Z88.8 Allergy status to other drugs, medicaments and biological substances; Z79.899 Other long term (current) drug therapy
CPT/HCPCS: 36415; 36416; 36600; 70450; 70496; 70498; 70551; 71260; 72125; 80048; 80053; 80061; 80076; 81001; 81003; 81015; 82140; 82553; 83036; 83735; 84443; 84484; 85025; 85610; 85730; 87086; 87635; 93005; 93306; 95712; 95819; 95957; 96365; 96366; J1650; J2060; J3475; J3490; J7050; Q9967; U0003

== ENCOUNTER 2020-11-11 14:54 | Emergency (ER) | payer MEDICARE ==
[2020-11-11] MEDS ORDERED: Acetaminophen 325 MG TAB ONE (16:34)
== END 2020-11-11 17:12 ==
LOC: ERS 14:54
DX: S50.12XA Contusion of left forearm, initial encounter (principal); M25.552 Pain in left hip; M25.551 Pain in right hip; E03.9 Hypothyroidism, unspecified; M10.9 Gout, unspecified; I10 Essential (primary) hypertension; Z86.73 Personal history of transient ischemic attack (TIA), and cerebral infarction without residual deficits; Z79.899 Other long term (current) drug therapy; W18.30XA Fall on same level, unspecified, initial encounter
CPT/HCPCS: 70450; 72100; 72125; 72170

== ENCOUNTER 2021-03-16 09:00 | Inpatient (IN) | payer MEDICARE, MEDICAID ==
[2021-03-16 09:14] LABS: #Basophils 0.1 thou/uL (0.0-0.2); #Eosinphils 1.1 thou/uL (0.0-0.7); #Lymphocytes 2.1 thou/uL (1.20-3.40); #Monocytes 1.2 thou/uL (0.11-0.59); #Neutrophils 6.7 thou/uL (1.40-6.50); %Basophils 0.6 % (0.0-1.0); %Eosinophils 9.5 % (0.0-10.0); %Monocytes 10.7 % (0.0-10.0); %Neutrophils 60.3 % (42.0-75.0); Hemoglobin 13.1 g/dL (12.0-16.0); Mean Corpuscular HGB CONC 32.7 g/dL (32.0-36.0); Mean Corpuscular Hemoglobin 30.1 pg (27.0-31.0); Mean Platelet Volume 6.2 fL (7.4-10.4); Platelet Count 575 thou/uL (130-400); RBC Distribution Width 13.4 % (11.5-14.5); Red Blood Cell (RBC) Count 4.35 mill/uL (4.20-5.40); White Blood Cell (WBC) Count 11.1 thou/uL (4.8-10.8)
[2021-03-16 09:25] LABS: PTT 32.6 sec (22.9-36.1); Prothrombin Time 13.1 sec (12.0-14.7)
[2021-03-16 09:27] LABS: ALT (SGPT) 10 U/L (8-55); AST (SGOT) 19 U/L (5-34); Albumin 3.8 g/dL (3.4-4.8); Alkaline Phosphatase 116 U/L (40-110); Anion Gap 13 mmol/L (10-20); BUN (Urea Nitrogen) 17 mg/dL (9.8-20.1); Bilirubin, Total 0.5 mg/dL (0.2-1.2); Calc. Creatinine Clearance 0 mL/min (70-130); Calcium 9.4 mg/dL (7.8-10.44); Carbon Dioxide 27 mmol/L (23-31); Chloride 101 mmol/L (98-107); Globulin 3.5 g/dL (2.4-3.5); Glucose 89 mg/dL (83-110); Potassium 3.9 mmol/L (3.5-5.1); Protein, Total 7.3 g/dL (5.8-8.1); Sodium 137 mmol/L (136-145)
[2021-03-16] MEDS ORDERED: Aspirin 300 MG Suppository ONE (11:07)
[2021-03-16] MEDS ORDERED: Albuterol Sulfate 2.5 mg/3 ml Neb NEB PRN (13:25)
[2021-03-16 13:27] LABS: Troponin I Less than 0.010 ng/mL (< 0.028)
[2021-03-16] MEDS ORDERED: Acetaminophen 650 MG Suppository PR PRN (13:52)
[2021-03-16] MEDS ORDERED: Ondansetron PF 4 MG/2 ML Vial IVP PRN (13:52)
[2021-03-16] MEDS ORDERED: hydrALAZINE 20 MG/ML VIAL SLOW IVP PRN (14:51)
[2021-03-16 15:03] LABS: Cardiac Risk 2.9 (Less than 4.5); Cholesterol 135 mg/dl (< 200 Desired); HDL Cholesterol 47 mg/dL (>60 Neg Risk); LDL Cholesterol, Calculated 73 mg/dL; Magnesium 1.9 mg/dL (1.6-2.6); Triglycerides 75 mg/dL (Less than 150)
[2021-03-16 16:12] LABS: Troponin I Less than 0.010 ng/mL (< 0.028)
[2021-03-16 20:31] VITALS: BMI 22.3
[2021-03-17 05:06] LABS: #Basophils 0.1 thou/uL (0.0-0.2); #Eosinphils 0.7 thou/uL (0.0-0.7); #Monocytes 1.7 thou/uL (0.11-0.59); #Neutrophils 11.1 thou/uL (1.40-6.50); %Basophils 0.6 % (0.0-1.0); %Eosinophils 4.3 % (0.0-10.0); %Lymphocytes 12.9 % (21.0-51.0); %Monocytes 10.8 % (0.0-10.0); %Neutrophils 71.4 % (42.0-75.0); Hemoglobin 12.6 g/dL (12.0-16.0); Mean Corpuscular Hemoglobin 30.2 pg (27.0-31.0); Mean Corpuscular Volume 91.5 fL (78.0-98.0); Mean Platelet Volume 6.5 fL (7.4-10.4); Platelet Count 581 thou/uL (130-400); RBC Distribution Width 13.2 % (11.5-14.5); Red Blood Cell (RBC) Count 4.17 mill/uL (4.20-5.40); White Blood Cell (WBC) Count 15.5 thou/uL (4.8-10.8)
[2021-03-17 05:27] LABS: Anion Gap 14 mmol/L (10-20); BUN (Urea Nitrogen) 18 mg/dL (9.8-20.1); Calc. Creatinine Clearance 55 mL/min (70-130); Calcium 9.8 mg/dL (7.8-10.44); Carbon Dioxide 25 mmol/L (23-31); Chloride 103 mmol/L (98-107); Glucose 87 mg/dL (83-110); Potassium 3.9 mmol/L (3.5-5.1); Sodium 138 mmol/L (136-145)
[2021-03-17] MEDS: Enoxaparin Sodium 40 MG/0.4 ML SYRINGE SC SCH (09:44)
[2021-03-17] MEDS: Pantoprazole 40 MG VIAL IVP SCH (09:45)
[2021-03-17] MEDS ORDERED: Colchicine 0.3 MG TAB PO PRN (09:46)
[2021-03-17] MEDS ORDERED: Bisacodyl 10 MG SUPP PR PRN (09:46)
[2021-03-17] MEDS ORDERED: Albuterol Sulfate 1.25 MG/3 ML NEB INH PRN (09:46)
[2021-03-17 14:47] LABS: SARS-CoV-2 PCR by NAA Not Detected (NotDetected)
[2021-03-17 16:17] LABS: Bilirubin Negative (Negative); Blood, Urine 2+ (Negative); Clarity Extra Turbid (Clear); Glucose, Urine (Dipstick) Normal (Negative); Ketone, Urine 20 mg/dL (Negative); Leukocyte 75 Leu/uL (Negative); Nitrite Negative (Negative); Protein, Urine (Dipstick) 20 mg/dL (Neg-Trace); Specific Gravity, Urine 1.016 (1.002-1.036); Squamous Epithelial 0-3 HPF (0-3); pH, Urine 6.5 (5.0-9.0)
[2021-03-17 16:18] LABS: Bacteria/HPF 2+ HPF (None Seen)
[2021-03-17 16:19] LABS: Urine Culture Reflex Yes Yes
[2021-03-17] MEDS: Famotidine 20 MG TAB PO SCH (20:30)
[2021-03-17] MEDS: Atorvastatin Calcium 40 MG TAB PO SCH (20:30)
[2021-03-17] MEDS: hydrALAZINE 25 MG TAB PO SCH (20:32)
[2021-03-17] MEDS ORDERED: Atorvastatin Calcium 40 MG TAB PO SCH (21:00)
[2021-03-17] MEDS: metroNIDAZOLE 500 MG in Premix Bag 1 BAG IVPB SCH (22:16)
[2021-03-18 06:05] LABS: #Basophils 0.1 thou/uL (0.0-0.2); #Eosinphils 0.4 thou/uL (0.0-0.7); #Lymphocytes 2.1 thou/uL (1.20-3.40); #Monocytes 1.9 thou/uL (0.11-0.59); #Neutrophils 9.5 thou/uL (1.40-6.50); %Basophils 0.4 % (0.0-1.0); %Eosinophils 2.6 % (0.0-10.0); %Lymphocytes 14.7 % (21.0-51.0); %Neutrophils 68.2 % (42.0-75.0); Hemoglobin 11.8 g/dL (12.0-16.0); Mean Corpuscular HGB CONC 32.3 g/dL (32.0-36.0); Mean Corpuscular Hemoglobin 29.8 pg (27.0-31.0); Mean Platelet Volume 6.7 fL (7.4-10.4); Platelet Count 540 thou/uL (130-400); RBC Distribution Width 13.4 % (11.5-14.5); Red Blood Cell (RBC) Count 3.96 mill/uL (4.20-5.40); White Blood Cell (WBC) Count 13.9 thou/uL (4.8-10.8)
[2021-03-18 06:32] LABS: Anion Gap 16 mmol/L (10-20); BUN (Urea Nitrogen) 25 mg/dL (9.8-20.1); Calc. Creatinine Clearance 47 mL/min (70-130); Calcium 8.3 mg/dL (7.8-10.44); Carbon Dioxide 22 mmol/L (23-31); Chloride 102 mmol/L (98-107); Glucose 98 mg/dL (83-110); Potassium 3.8 mmol/L (3.5-5.1); Sodium 136 mmol/L (136-145); Uric Acid 6.8 mg/dL (2.6-6.0)
[2021-03-18] MEDS: Levothyroxine Sodium 75 MCG TAB PO SCH (06:33)
[2021-03-18] MEDS: metroNIDAZOLE 500 MG in Premix Bag 1 BAG IVPB SCH ×3 (06:40→23:47)
[2021-03-18 08:17] LABS: Hemoglobin A1c 5.2 % (4.0-6.0)
[2021-03-18] MEDS ORDERED: Aspirin 325 mg Enteric Coated Tablet PO SCH (09:00)
[2021-03-18] MEDS ORDERED: Aspirin 81 mg Enteric Coated Tablet PO SCH ×2 (09:00)
[2021-03-18] MEDS: Amlodipine 10 MG TAB PO SCH (10:29)
[2021-03-18] MEDS: Aspirin 81 mg Enteric Coated Tablet PO SCH (10:30)
[2021-03-18] MEDS: Famotidine 20 MG TAB PO SCH ×2 (10:30→20:54)
[2021-03-18] MEDS: Enoxaparin Sodium 40 MG/0.4 ML SYRINGE SC SCH (10:31)
[2021-03-18] MEDS: Pantoprazole 40 MG VIAL IVP SCH (10:32)
[2021-03-18] MEDS: Senokot S 8.6-50 MG TAB PO SCH (10:32)
[2021-03-18] MEDS: hydrALAZINE 25 MG TAB PO SCH ×2 (10:32→20:54)
[2021-03-18] MEDS: Polyethylene Glycol 3350 17 GM Packet PO SCH (10:32)
[2021-03-18] MEDS: Clopidogrel Bisulfate 75 MG TAB PO SCH (11:01)
[2021-03-18] MEDS: Atorvastatin Calcium 40 MG TAB PO SCH (20:53)
[2021-03-19] MEDS: metroNIDAZOLE 500 MG in Premix Bag 1 BAG IVPB SCH ×3 (05:54→23:24)
[2021-03-19] MEDS: Levothyroxine Sodium 75 MCG TAB PO SCH (05:54)
[2021-03-19 06:23] LABS: #Basophils 0.1 thou/uL (0.0-0.2); #Eosinphils 0.1 thou/uL (0.0-0.7); #Lymphocytes 1.7 thou/uL (1.20-3.40); #Neutrophils 11.5 thou/uL (1.40-6.50); %Basophils 0.6 % (0.0-1.0); %Eosinophils 0.8 % (0.0-10.0); %Monocytes 12.9 % (0.0-10.0); %Neutrophils 74.8 % (42.0-75.0); Hemoglobin 11.7 g/dL (12.0-16.0); Mean Corpuscular Hemoglobin 28.8 pg (27.0-31.0); Mean Corpuscular Volume 92.9 fL (78.0-98.0); Mean Platelet Volume 6.4 fL (7.4-10.4); Platelet Count 499 thou/uL (130-400); RBC Distribution Width 13.4 % (11.5-14.5); Red Blood Cell (RBC) Count 4.05 mill/uL (4.20-5.40); White Blood Cell (WBC) Count 15.4 thou/uL (4.8-10.8)
[2021-03-19 06:47] LABS: Anion Gap 14 mmol/L (10-20); BUN (Urea Nitrogen) 27 mg/dL (9.8-20.1); Calc. Creatinine Clearance 48 mL/min (70-130); Calcium 9.3 mg/dL (7.8-10.44); Carbon Dioxide 24 mmol/L (23-31); Chloride 104 mmol/L (98-107); Glucose 112 mg/dL (83-110); Potassium 3.6 mmol/L (3.5-5.1); Sodium 138 mmol/L (136-145)
[2021-03-19] MEDS: Polyethylene Glycol 3350 17 GM Packet PO SCH (08:55)
[2021-03-19] MEDS: Clopidogrel Bisulfate 75 MG TAB PO SCH (08:55)
[2021-03-19] MEDS: hydrALAZINE 25 MG TAB PO SCH ×2 (08:55→21:36)
[2021-03-19] MEDS: Enoxaparin Sodium 40 MG/0.4 ML SYRINGE SC SCH (08:55)
[2021-03-19] MEDS: Aspirin 81 mg Enteric Coated Tablet PO SCH (08:55)
[2021-03-19] MEDS: Senokot S 8.6-50 MG TAB PO SCH (08:55)
[2021-03-19] MEDS: Amlodipine 10 MG TAB PO SCH (08:56)
[2021-03-19] MEDS: Pantoprazole 40 MG VIAL IVP SCH (08:56)
[2021-03-19] MEDS: Famotidine 20 MG TAB PO SCH (08:56)
[2021-03-19] MEDS: Atorvastatin Calcium 40 MG TAB PO SCH (21:36)
[2021-03-20 05:55] LABS: #Basophils 0.1 thou/uL (0.0-0.2); #Eosinphils 0.1 thou/uL (0.0-0.7); #Lymphocytes 1.6 thou/uL (1.20-3.40); #Monocytes 1.7 thou/uL (0.11-0.59); #Neutrophils 9.4 thou/uL (1.40-6.50); %Basophils 0.6 % (0.0-1.0); %Eosinophils 0.5 % (0.0-10.0); %Lymphocytes 12.7 % (21.0-51.0); %Monocytes 13.4 % (0.0-10.0); %Neutrophils 72.9 % (42.0-75.0); Hemoglobin 11.9 g/dL (12.0-16.0); Mean Corpuscular HGB CONC 30.9 g/dL (32.0-36.0); Mean Corpuscular Hemoglobin 28.6 pg (27.0-31.0); Mean Corpuscular Volume 92.6 fL (78.0-98.0); Mean Platelet Volume 6.5 fL (7.4-10.4); Platelet Count 541 thou/uL (130-400); RBC Distribution Width 13.3 % (11.5-14.5); Red Blood Cell (RBC) Count 4.16 mill/uL (4.20-5.40); White Blood Cell (WBC) Count 12.9 thou/uL (4.8-10.8)
[2021-03-20 06:18] LABS: Anion Gap 14 mmol/L (10-20); BUN (Urea Nitrogen) 20 mg/dL (9.8-20.1); Calc. Creatinine Clearance 55 mL/min (70-130); Calcium 9.1 mg/dL (7.8-10.44); Carbon Dioxide 22 mmol/L (23-31); Chloride 105 mmol/L (98-107); Glucose 110 mg/dL (83-110); Potassium 3.4 mmol/L (3.5-5.1); Sodium 138 mmol/L (136-145)
[2021-03-20] MEDS: Levothyroxine Sodium 75 MCG TAB PO SCH (06:33)
[2021-03-20] MEDS: metroNIDAZOLE 500 MG in Premix Bag 1 BAG IVPB SCH ×2 (06:33→14:52)
[2021-03-20] MEDS ORDERED: Potassium Chloride 20 MEQ TAB PO SCH (07:30)
[2021-03-20] MEDS: Aspirin 81 mg Enteric Coated Tablet PO SCH (09:32)
[2021-03-20] MEDS: Amlodipine 10 MG TAB PO SCH (09:33)
[2021-03-20] MEDS: hydrALAZINE 25 MG TAB PO SCH ×2 (09:33→20:01)
[2021-03-20] MEDS: Senokot S 8.6-50 MG TAB PO SCH (09:33)
[2021-03-20] MEDS: Clopidogrel Bisulfate 75 MG TAB PO SCH (09:33)
[2021-03-20] MEDS: Polyethylene Glycol 3350 17 GM Packet PO SCH (09:34)
[2021-03-20] MEDS: Enoxaparin Sodium 40 MG/0.4 ML SYRINGE SC SCH (09:34)
[2021-03-20] MEDS: Acetaminophen 325 MG TAB PO PRN (17:01)
[2021-03-20] MEDS ORDERED: Colchicine 0.3 MG TAB PO PRN (18:08)
[2021-03-20] MEDS: Atorvastatin Calcium 40 MG TAB PO SCH (20:01)
[2021-03-21 05:11] LABS: #Basophils 0.1 thou/uL (0.0-0.2); #Eosinphils 0.2 thou/uL (0.0-0.7); #Lymphocytes 1.3 thou/uL (1.20-3.40); #Monocytes 1.7 thou/uL (0.11-0.59); #Neutrophils 8.1 thou/uL (1.40-6.50); %Basophils 0.6 % (0.0-1.0); %Eosinophils 2.2 % (0.0-10.0); %Lymphocytes 11.6 % (21.0-51.0); %Monocytes 14.7 % (0.0-10.0); Hemoglobin 11.3 g/dL (12.0-16.0); Mean Corpuscular Hemoglobin 28.8 pg (27.0-31.0); Mean Platelet Volume 6.7 fL (7.4-10.4); Platelet Count 542 thou/uL (130-400); RBC Distribution Width 13.5 % (11.5-14.5); Red Blood Cell (RBC) Count 3.92 mill/uL (4.20-5.40); White Blood Cell (WBC) Count 11.4 thou/uL (4.8-10.8)
[2021-03-21 05:26] LABS: Anion Gap 12 mmol/L (10-20); BUN (Urea Nitrogen) 20 mg/dL (9.8-20.1); Calc. Creatinine Clearance 59 mL/min (70-130); Calcium 8.2 mg/dL (7.8-10.44); Carbon Dioxide 25 mmol/L (23-31); Chloride 106 mmol/L (98-107); Glucose 101 mg/dL (83-110); Potassium 3.9 mmol/L (3.5-5.1); Sodium 139 mmol/L (136-145)
[2021-03-21] MEDS: Levothyroxine Sodium 75 MCG TAB PO SCH (05:46)
[2021-03-21] MEDS: Amlodipine 10 MG TAB PO SCH (08:36)
[2021-03-21] MEDS: Aspirin 81 mg Enteric Coated Tablet PO SCH (08:36)
[2021-03-21] MEDS: Acetaminophen 325 MG TAB PO PRN ×2 (08:37→14:25)
[2021-03-21] MEDS: Clopidogrel Bisulfate 75 MG TAB PO SCH (08:37)
[2021-03-21] MEDS: hydrALAZINE 25 MG TAB PO SCH (08:37)
[2021-03-21] MEDS: Enoxaparin Sodium 40 MG/0.4 ML SYRINGE SC SCH (08:41)
[2021-03-21] MEDS: Polyethylene Glycol 3350 17 GM Packet PO SCH (08:42)
[2021-03-21] MEDS: Senokot S 8.6-50 MG TAB PO SCH (08:42)
[2021-03-21 11:41] VITALS: BP 134/75; TEMP 97.3
== END 2021-03-21 15:36 | DRG 65 ==
LOC: ERS 09:00 → ERHOLD 11:48 → 3SE 18:53
PROVIDERS: ADMIT Family Medicine; ATTEND Internal Medicine
DX: I63.9 Cerebral infarction, unspecified (principal); N39.0 Urinary tract infection, site not specified; I69.954 Hemiplegia and hemiparesis following unspecified cerebrovascular disease affecting left non-dominant side; Z20.822 Contact with and (suspected) exposure to COVID-19; J44.9 Chronic obstructive pulmonary disease, unspecified; R29.708 NIHSS score 8; F03.90 Unspecified dementia, unspecified severity, without behavioral disturbance, psychotic disturbance, mood disturbance, and anxiety; R47.81 Slurred speech; R29.810 Facial weakness; I10 Essential (primary) hypertension; E03.9 Hypothyroidism, unspecified; M10.9 Gout, unspecified; M47.812 Spondylosis without myelopathy or radiculopathy, cervical region; B96.20 Unspecified Escherichia coli [E. coli] as the cause of diseases classified elsewhere; E87.6 Hypokalemia; Z88.0 Allergy status to penicillin; Z88.2 Allergy status to sulfonamides; Z88.8 Allergy status to other drugs, medicaments and biological substances; Z88.1 Allergy status to other antibiotic agents; Z91.011 Allergy to milk products; Z79.82 Long term (current) use of aspirin; Z79.890 Hormone replacement therapy; Z79.51 Long term (current) use of inhaled steroids; Z79.899 Other long term (current) drug therapy; Z91.81 History of falling; Z90.11 Acquired absence of right breast and nipple; Z90.89 Acquired absence of other organs
CPT/HCPCS: 36415; 70450; 70551; 71045; 80048; 80053; 80061; 81001; 83036; 83735; 84443; 84484; 84550; 85025; 85610; 85730; 87077; 87086; 87186; 93005; 95712; 95819; 95957; C9113; J1650; J1956; U0003; U0005

== ENCOUNTER 2021-03-26 11:28 | Observation (INO) | payer MEDICARE, MEDICAID ==
[2021-03-26] MEDS ORDERED: Midazolam HCl 2 mg/2 ml Vial ONE (11:36)
[2021-03-26 14:23] LABS: #Basophils 0.1 thou/uL (0.0-0.2); #Eosinphils 0.8 thou/uL (0.0-0.7); #Lymphocytes 1.9 thou/uL (1.20-3.40); #Monocytes 1.4 thou/uL (0.11-0.59); #Neutrophils 5.7 thou/uL (1.40-6.50); %Basophils 0.9 % (0.0-1.0); %Eosinophils 8.4 % (0.0-10.0); %Lymphocytes 19.4 % (21.0-51.0); %Monocytes 13.8 % (0.0-10.0); %Neutrophils 57.6 % (42.0-75.0); Hemoglobin 11.7 g/dL (12.0-16.0); Mean Corpuscular HGB CONC 32.4 g/dL (32.0-36.0); Mean Corpuscular Hemoglobin 29.6 pg (27.0-31.0); Mean Corpuscular Volume 91.5 fL (78.0-98.0); Mean Platelet Volume 6.4 fL (7.4-10.4); Platelet Count 518 thou/uL (130-400); RBC Distribution Width 13.3 % (11.5-14.5); Red Blood Cell (RBC) Count 3.95 mill/uL (4.20-5.40); White Blood Cell (WBC) Count 9.8 thou/uL (4.8-10.8)
[2021-03-26 14:46] LABS: ALT (SGPT) 11 U/L (8-55); AST (SGOT) 22 U/L (5-34); Albumin 3.2 g/dL (3.4-4.8); Alkaline Phosphatase 100 U/L (40-110); Anion Gap 11 mmol/L (10-20); BUN (Urea Nitrogen) 14 mg/dL (9.8-20.1); Bilirubin, Total 0.3 mg/dL (0.2-1.2); Calc. Creatinine Clearance 0 mL/min (70-130); Calcium 8.7 mg/dL (7.8-10.44); Carbon Dioxide 28 mmol/L (23-31); Chloride 100 mmol/L (98-107); Globulin 2.8 g/dL (2.4-3.5); Glucose 104 mg/dL (83-110); Potassium 3.6 mmol/L (3.5-5.1); Sodium 135 mmol/L (136-145)
[2021-03-26 14:52] LABS: Bilirubin Negative (Negative); Blood, Urine Negative (Negative); Clarity Clear (Clear); Glucose, Urine (Dipstick) Normal (Negative); Ketone, Urine Negative (Negative); Leukocyte Negative Leu/uL (Negative); Nitrite Negative (Negative); Protein, Urine (Dipstick) Negative (Neg-Trace); Specific Gravity, Urine 1.014 (1.002-1.036); Urobilinogen Normal mg/dL (Less than 2)
[2021-03-26] MEDS ORDERED: Ondansetron ODT 4 MG TAB PO PRN (16:45)
[2021-03-26] MEDS ORDERED: Guaifenesin DM 100-10/5 ML UDCUP PO PRN (16:45)
[2021-03-26] MEDS ORDERED: hydrALAZINE 20 MG/ML VIAL SLOW IVP PRN (16:48)
[2021-03-26] MEDS ORDERED: Bisacodyl 10 MG SUPP PR PRN (16:49)
[2021-03-26] MEDS ORDERED: Albuterol Sulfate 1.25 MG/3 ML NEB NEB PRN (16:49)
[2021-03-26] MEDS ORDERED: Colchicine 0.3 MG TAB PO PRN (16:49)
[2021-03-26] MEDS ORDERED: Sodium Chloride 0.9% 500 ML IV SCH (17:30)
[2021-03-26] MEDS ORDERED: Calcium Carbonate 500 MG ChewTAB PO PRN (17:35)
[2021-03-26] MEDS: Atorvastatin Calcium 40 MG TAB PO SCH (23:58)
[2021-03-26] MEDS: Famotidine 20 MG TAB PO SCH (23:58)
[2021-03-27] MEDS ORDERED: Aspirin 300 MG Suppository PR SCH (01:00)
[2021-03-27] MEDS: hydrALAZINE 25 MG TAB PO SCH ×3 (01:03→20:20)
[2021-03-27 05:17] LABS: #Basophils 0.1 thou/uL (0.0-0.2); #Eosinphils 0.7 thou/uL (0.0-0.7); #Lymphocytes 1.7 thou/uL (1.20-3.40); #Monocytes 1.3 thou/uL (0.11-0.59); #Neutrophils 6.1 thou/uL (1.40-6.50); %Basophils 0.9 % (0.0-1.0); %Eosinophils 7.4 % (0.0-10.0); %Lymphocytes 16.9 % (21.0-51.0); %Monocytes 12.9 % (0.0-10.0); %Neutrophils 61.8 % (42.0-75.0); Hemoglobin 11.5 g/dL (12.0-16.0); Mean Corpuscular HGB CONC 31.9 g/dL (32.0-36.0); Mean Corpuscular Hemoglobin 29.2 pg (27.0-31.0); Mean Corpuscular Volume 91.6 fL (78.0-98.0); Mean Platelet Volume 6.4 fL (7.4-10.4); Platelet Count 565 thou/uL (130-400); RBC Distribution Width 13.2 % (11.5-14.5); Red Blood Cell (RBC) Count 3.95 mill/uL (4.20-5.40); White Blood Cell (WBC) Count 9.9 thou/uL (4.8-10.8)
[2021-03-27 05:36] LABS: Anion Gap 14 mmol/L (10-20); BUN (Urea Nitrogen) 12 mg/dL (9.8-20.1); Calc. Creatinine Clearance 67 mL/min (70-130); Calcium 8.8 mg/dL (7.8-10.44); Carbon Dioxide 29 mmol/L (23-31); Chloride 100 mmol/L (98-107); Glucose 86 mg/dL (83-110); Potassium 3.8 mmol/L (3.5-5.1); Sodium 139 mmol/L (136-145)
[2021-03-27] MEDS: Levothyroxine Sodium 75 MCG TAB PO SCH (06:19)
[2021-03-27] MEDS: Aspirin 81 mg Enteric Coated Tablet PO SCH (09:56)
[2021-03-27] MEDS: Amlodipine 5 MG TAB PO SCH (09:56)
[2021-03-27] MEDS: Polyethylene Glycol 3350 17 GM Packet PO SCH (09:57)
[2021-03-27] MEDS: Famotidine 20 MG TAB PO SCH ×2 (09:57→20:20)
[2021-03-27] MEDS: Clopidogrel Bisulfate 75 MG TAB PO SCH (09:57)
[2021-03-27] MEDS: Senokot S 8.6-50 MG TAB PO SCH (09:57)
[2021-03-27] MEDS: Acetaminophen 325 MG TAB PO PRN ×2 (11:48→20:18)
[2021-03-27 17:16] LABS: SARS-CoV-2 PCR by NAA Not Detected (NotDetected)
[2021-03-27] MEDS: Atorvastatin Calcium 40 MG TAB PO SCH (20:20)
[2021-03-28] MEDS: Levothyroxine Sodium 75 MCG TAB PO SCH (05:06)
[2021-03-28] MEDS: Aspirin 81 mg Enteric Coated Tablet PO SCH (09:46)
[2021-03-28] MEDS: Amlodipine 5 MG TAB PO SCH (09:46)
[2021-03-28] MEDS: hydrALAZINE 25 MG TAB PO SCH (09:46)
[2021-03-28] MEDS: Famotidine 20 MG TAB PO SCH (09:46)
[2021-03-28] MEDS: Clopidogrel Bisulfate 75 MG TAB PO SCH (09:46)
[2021-03-28] MEDS: Polyethylene Glycol 3350 17 GM Packet PO SCH (09:47)
[2021-03-28] MEDS: Senokot S 8.6-50 MG TAB PO SCH (09:47)
[2021-03-28 17:58] VITALS: BP 144/77; TEMP 98.3
== END 2021-03-28 18:46 ==
LOC: ERS 11:28 → ERHOLD 15:20 → 3SE 22:53
PROVIDERS: ADMIT Internal Medicine; ATTEND Internal Medicine
DX: I63.89 Other cerebral infarction (principal); R47.81 Slurred speech; I69.354 Hemiplegia and hemiparesis following cerebral infarction affecting left non-dominant side; G93.41 Metabolic encephalopathy; J44.9 Chronic obstructive pulmonary disease, unspecified; F03.90 Unspecified dementia, unspecified severity, without behavioral disturbance, psychotic disturbance, mood disturbance, and anxiety; M1A.9XX0 Chronic gout, unspecified, without tophus (tophi); E03.9 Hypothyroidism, unspecified; I10 Essential (primary) hypertension; R53.81 Other malaise; M47.812 Spondylosis without myelopathy or radiculopathy, cervical region; R13.12 Dysphagia, oropharyngeal phase; Z79.82 Long term (current) use of aspirin; Z79.899 Other long term (current) drug therapy; Z79.02 Long term (current) use of antithrombotics/antiplatelets; Z88.0 Allergy status to penicillin; Z88.1 Allergy status to other antibiotic agents; Z88.2 Allergy status to sulfonamides; Z88.8 Allergy status to other drugs, medicaments and biological substances; Z91.011 Allergy to milk products; Z20.822 Contact with and (suspected) exposure to COVID-19
CPT/HCPCS: 51701; 70450; 70551; 71045; 80048; 80053; 81003; 84484; 85025 ×2; 93005; 93970; 95712; 95819; 95957; 97110; 97139 ×5; 97530 ×2; 97535; 99285; U0003; U0005; 36415; G0378; J2250; J7030

== ENCOUNTER 2022-03-19 16:30 | Inpatient (IN) | payer OTHER ==
[2022-03-19 17:55] LABS: #Basophils 0.1 thou/uL (0.0-0.2); #Eosinphils 0.4 thou/uL (0.0-0.7); #Lymphocytes 1.9 thou/uL (1.20-3.40); #Monocytes 1.2 thou/uL (0.11-0.59); #Neutrophils 8.8 thou/uL (1.40-6.50); %Basophils 0.5 % (0.0-1.0); %Eosinophils 3.3 % (0.0-10.0); %Lymphocytes 15.4 % (21.0-51.0); %Monocytes 9.4 % (0.0-10.0); %Neutrophils 71.5 % (42.0-75.0); Hemoglobin 13.2 g/dL (12.0-16.0); Mean Corpuscular Hemoglobin 32.9 pg (27.0-31.0); Mean Platelet Volume 7.1 fL (7.4-10.4); Platelet Count 402 thou/uL (130-400); RBC Distribution Width 14.3 % (11.5-14.5); White Blood Cell (WBC) Count 12.2 thou/uL (4.8-10.8)
[2022-03-19 18:11] LABS: PTT 32.9 sec (22.9-36.1); Prothrombin Time 13.7 sec (12.0-14.7)
[2022-03-19 18:15] LABS: ALT (SGPT) 29 U/L (8-55); AST (SGOT) 77 U/L (5-34); Albumin 3.1 g/dL (3.4-4.8); Alkaline Phosphatase 310 U/L (40-110); Anion Gap 26 mmol/L (10-20); BUN (Urea Nitrogen) 10 mg/dL (9.8-20.1); Bilirubin, Total 0.7 mg/dL (0.2-1.2); CK (CPK) 39 U/L (29-168); Calc. Creatinine Clearance 0 mL/min (70-130); Calcium 8.5 mg/dL (7.8-10.44); Carbon Dioxide 19 mmol/L (23-31); Chloride 98 mmol/L (98-107); Estimated GFR 90; Glucose 79 mg/dL (83-110); Potassium 3.9 mmol/L (3.5-5.1); Protein, Total 6.1 g/dL (5.8-8.1); Sodium 139 mmol/L (136-145)
[2022-03-19 20:01] LABS: Bacteria/HPF 2+ HPF (None Seen); Bilirubin Negative (Negative); Blood, Urine Negative (Negative); Clarity Turbid (Clear); Glucose, Urine (Dipstick) Normal (Negative); Ketone, Urine Negative (Negative); Leukocyte 75 Leu/uL (Negative); Nitrite 2+ (Negative); Protein, Urine (Dipstick) Negative (Neg-Trace); RBC/HPF 0-3 HPF (0-3); Squamous Epithelial 0-3 HPF (0-3); Urobilinogen Normal mg/dL (Less than 2); pH, Urine 6.5 (5.0-9.0)
[2022-03-19] MEDS ORDERED: cefTRIAXone\\ROCEPHIN 1 GM VIAL ONE (20:41)
[2022-03-19 22:39] LABS: Amphetamine Not Detected (NotDetected); Barbiturates Screen Not Detected (NotDetected); Benzodiazepine Screen Not Detected (NotDetected); Cocaine Metabolite Screen Not Detected (NotDetected); Methadone Not Detected (NotDetected); Methamphetamine Not Detected (NotDetected); Opiate Screen Not Detected (NotDetected); Oxycodone Screen Not Detected (NotDetected); Phencyclidine (PCP) Not Detected (NotDetected); THC/Cannabinoid Screen Not Detected (NotDetected); Tricyclic Screen Not Detected (NotDetected)
[2022-03-19] MEDS ORDERED: Acetaminophen 325 MG TAB PO PRN (22:45)
[2022-03-19] MEDS ORDERED: Ondansetron PF 4 MG/2 ML Vial IVP PRN (22:45)
[2022-03-19] MEDS ORDERED: Ondansetron ODT 4 MG TAB SL PRN (22:45)
[2022-03-19 23:58] VITALS: BMI 16.0
[2022-03-20] MEDS ORDERED: hydrALAZINE 20 MG/ML VIAL SLOW IVP PRN (01:21)
[2022-03-20 07:04] LABS: #Basophils 0.1 thou/uL (0.0-0.2); #Eosinphils 0.2 thou/uL (0.0-0.7); #Lymphocytes 1.6 thou/uL (1.20-3.40); #Monocytes 1.3 thou/uL (0.11-0.59); #Neutrophils 9.3 thou/uL (1.40-6.50); %Basophils 0.7 % (0.0-1.0); %Eosinophils 1.8 % (0.0-10.0); %Lymphocytes 12.9 % (21.0-51.0); %Monocytes 10.4 % (0.0-10.0); %Neutrophils 74.1 % (42.0-75.0); Mean Corpuscular HGB CONC 31.3 g/dL (32.0-36.0); Mean Corpuscular Hemoglobin 31.9 pg (27.0-31.0); Platelet Count 459 thou/uL (130-400); RBC Distribution Width 14.5 % (11.5-14.5); Red Blood Cell (RBC) Count 4.08 mill/uL (4.20-5.40); White Blood Cell (WBC) Count 12.6 thou/uL (4.8-10.8)
[2022-03-20 07:23] LABS: Anion Gap 19 mmol/L (10-20); BUN (Urea Nitrogen) 9 mg/dL (9.8-20.1); Calc. Creatinine Clearance 63 mL/min (70-130); Calcium 8.4 mg/dL (7.8-10.44); Carbon Dioxide 26 mmol/L (23-31); Chloride 95 mmol/L (98-107); Estimated GFR 91; Glucose 70 mg/dL (83-110); Potassium 3.1 mmol/L (3.5-5.1); Sodium 137 mmol/L (136-145)
[2022-03-20 07:55] LABS: Magnesium 1.3 mg/dL (1.6-2.6)
[2022-03-20] MEDS ORDERED: Albuterol Sulfate 1.25 MG/3 ML NEB INH PRN ×2 (08:03→09:14)
[2022-03-20] MEDS ORDERED: Polyethylene Glycol 3350 17 GM Packet PO PRN (08:03)
[2022-03-20] MEDS ORDERED: Potassium Chloride 20 MEQ TAB PO SCH (08:15)
[2022-03-20] MEDS ORDERED: Amlodipine 10 MG TAB PO SCH (09:00)
[2022-03-20] MEDS: hydrALAZINE 25 MG TAB PO SCH ×2 (09:39→21:34)
[2022-03-20] MEDS: Clopidogrel Bisulfate 75 MG TAB PO SCH (09:39)
[2022-03-20] MEDS: Aspirin 81 mg Enteric Coated Tablet PO SCH (09:39)
[2022-03-20] MEDS: Famotidine 20 MG TAB PO SCH ×2 (09:39→21:34)
[2022-03-20] MEDS: Amlodipine 5 MG TAB PO SCH (09:39)
[2022-03-20] MEDS ORDERED: Potassium Chloride 20 MEQ in Premix Bag 1 BAG IVPB SCH (10:00)
[2022-03-20] MEDS ORDERED: Magnesium 2 GM/50 ML(in water) 2 GM in Premix Bag 1 BAG IVPB SCH (10:00)
[2022-03-20] MEDS: cefTRIAXone\\ROCEPHIN 1 GM in Sodium Chloride 0.9% 100 ML IVPB SCH (21:30)
[2022-03-20] MEDS: Atorvastatin Calcium 40 MG TAB PO SCH (21:34)
[2022-03-21] MEDS: Levothyroxine Sodium 75 MCG TAB PO SCH (05:51)
[2022-03-21 06:00] LABS: Anion Gap 18 mmol/L (10-20); BUN (Urea Nitrogen) 13 mg/dL (9.8-20.1); Calc. Creatinine Clearance 59 mL/min (70-130); Calcium 8.7 mg/dL (7.8-10.44); Carbon Dioxide 24 mmol/L (23-31); Chloride 99 mmol/L (98-107); Estimated GFR 90; Glucose 64 mg/dL (83-110); Magnesium 1.7 mg/dL (1.6-2.6); Sodium 137 mmol/L (136-145)
[2022-03-21] MEDS ORDERED: Metoprolol Tartrate 25 MG TAB PO SCH (07:45)
[2022-03-21] MEDS ORDERED: Magnesium 2 GM/50 ML(in water) 2 GM in Premix Bag 1 BAG IVPB SCH (07:45)
[2022-03-21] MEDS: Amlodipine 5 MG TAB PO SCH (09:20)
[2022-03-21] MEDS: Clopidogrel Bisulfate 75 MG TAB PO SCH (09:20)
[2022-03-21] MEDS: hydrALAZINE 25 MG TAB PO SCH ×2 (09:20→21:08)
[2022-03-21] MEDS: Famotidine 20 MG TAB PO SCH ×2 (09:20→21:08)
[2022-03-21] MEDS: Aspirin 81 mg Enteric Coated Tablet PO SCH (09:20)
[2022-03-21] MEDS: cefTRIAXone\\ROCEPHIN 1 GM in Sodium Chloride 0.9% 100 ML IVPB SCH (21:07)
[2022-03-21] MEDS: Atorvastatin Calcium 40 MG TAB PO SCH (21:08)
[2022-03-21] MEDS: Metoprolol Tartrate 25 MG TAB PO SCH (21:08)
[2022-03-22] MEDS: Levothyroxine Sodium 75 MCG TAB PO SCH (05:50)
[2022-03-22] MEDS: Amlodipine 5 MG TAB PO SCH (09:09)
[2022-03-22] MEDS: Acetaminophen 500 MG TAB PO PRN ×2 (09:10→21:03)
[2022-03-22] MEDS: Clopidogrel Bisulfate 75 MG TAB PO SCH (09:12)
[2022-03-22] MEDS: Aspirin 81 mg Enteric Coated Tablet PO SCH (09:12)
[2022-03-22] MEDS: Metoprolol Tartrate 25 MG TAB PO SCH (09:12)
[2022-03-22] MEDS: Famotidine 20 MG TAB PO SCH ×2 (09:12→21:03)
[2022-03-22] MEDS: hydrALAZINE 25 MG TAB PO SCH ×2 (09:13→21:04)
[2022-03-22] MEDS ORDERED: Cephalexin 250 MG CAP PO SCH (18:00)
[2022-03-22] MEDS: cefTRIAXone\\ROCEPHIN 1 GM in Sodium Chloride 0.9% 100 ML IVPB SCH (21:03)
[2022-03-22] MEDS: Atorvastatin Calcium 40 MG TAB PO SCH (21:04)
[2022-03-23] MEDS: Levothyroxine Sodium 75 MCG TAB PO SCH (06:08)
[2022-03-23 06:29] LABS: Anion Gap 20 mmol/L (10-20); BUN (Urea Nitrogen) 17 mg/dL (9.8-20.1); Calc. Creatinine Clearance 56 mL/min (70-130); Calcium 8.8 mg/dL (7.8-10.44); Carbon Dioxide 23 mmol/L (23-31); Chloride 98 mmol/L (98-107); Estimated GFR 89; Glucose 79 mg/dL (83-110); Magnesium 1.6 mg/dL (1.6-2.6); Phosphorus 2.9 mg/dL (2.3-4.7); Potassium 3.3 mmol/L (3.5-5.1); Sodium 138 mmol/L (136-145)
[2022-03-23] MEDS ORDERED: Electrolyte Replacement Protocol FS PRN (07:30)
[2022-03-23] MEDS ORDERED: Potassium Bicarbonate/Cit Ac 20 MEQ TAB PO SCH (07:45)
[2022-03-23] MEDS ORDERED: Potassium Chloride 20 MEQ TAB PO SCH (08:00)
[2022-03-23] MEDS ORDERED: Magnesium 2 GM/50 ML(in water) 2 GM in Premix Bag 1 BAG IVPB SCH (08:00)
[2022-03-23] MEDS: Amlodipine 5 MG TAB PO SCH (10:10)
[2022-03-23] MEDS: Aspirin 81 mg Enteric Coated Tablet PO SCH (10:10)
[2022-03-23] MEDS: hydrALAZINE 25 MG TAB PO SCH (10:10)
[2022-03-23] MEDS: Famotidine 20 MG TAB PO SCH (10:11)
[2022-03-23] MEDS: Clopidogrel Bisulfate 75 MG TAB PO SCH (10:11)
[2022-03-23] MEDS ORDERED: Cephalexin 250 MG CAP PO SCH (12:00)
[2022-03-23 12:08] VITALS: BP 129/77; TEMP 97.6
[2022-03-23] MEDS ORDERED: Nitrofurantoin Monohyd/M-Cryst 100 MG CAP PO SCH (21:00)
== END 2022-03-23 13:20 | DRG 689 ==
LOC: ERS 16:30 → NEURO 21:25 → OBSVTOIN 03-21 07:44
PROVIDERS: ADMIT Internal Medicine; ATTEND Internal Medicine
DX: N39.0 Urinary tract infection, site not specified (principal); E43 Unspecified severe protein-calorie malnutrition; G93.41 Metabolic encephalopathy; I47.1 Supraventricular tachycardia; I69.354 Hemiplegia and hemiparesis following cerebral infarction affecting left non-dominant side; Z68.1 Body mass index [BMI] 19.9 or less, adult; Z66 Do not resuscitate; Z20.822 Contact with and (suspected) exposure to COVID-19; I10 Essential (primary) hypertension; J44.9 Chronic obstructive pulmonary disease, unspecified; E03.9 Hypothyroidism, unspecified; M19.90 Unspecified osteoarthritis, unspecified site; F03.90 Unspecified dementia, unspecified severity, without behavioral disturbance, psychotic disturbance, mood disturbance, and anxiety; E87.6 Hypokalemia; E83.42 Hypomagnesemia; B96.20 Unspecified Escherichia coli [E. coli] as the cause of diseases classified elsewhere; E78.00 Pure hypercholesterolemia, unspecified; K21.9 Gastro-esophageal reflux disease without esophagitis; M10.9 Gout, unspecified; Z88.0 Allergy status to penicillin; Z88.2 Allergy status to sulfonamides; Z88.8 Allergy status to other drugs, medicaments and biological substances; Z88.1 Allergy status to other antibiotic agents; Z91.011 Allergy to milk products; Z79.899 Other long term (current) drug therapy; Z79.890 Hormone replacement therapy; Z79.82 Long term (current) use of aspirin; Z79.02 Long term (current) use of antithrombotics/antiplatelets; Z90.11 Acquired absence of right breast and nipple; Z90.89 Acquired absence of other organs; Z98.890 Other specified postprocedural states
CPT/HCPCS: 36415; 36416; 70450; 71045; 80048; 80053; 80306; 81003; 81015; 82550; 83735; 84100; 84443; 84484; 85025; 85610; 85730; 87077; 87086; 87186; 93005; 93010; 93306; 96375; 96376; G0378; J0360; J0696; J3475; J3480; J3490; U0003; U0005

== ENCOUNTER 2022-05-13 21:15 | Inpatient (IN) | payer OTHER ==
[~2022-05-13 21:15] MED LIST: Iopamidol-370 76% 500 ML 1 ML ONE
[2022-05-13 22:43] LABS: Hemoglobin 11.6 g/dL (12.0-16.0); Mean Corpuscular HGB CONC 31.7 g/dL (32.0-36.0); Mean Corpuscular Hemoglobin 33.5 pg (27.0-31.0); Platelet Count 332 thou/uL (130-400); RBC Distribution Width 14.6 % (11.5-14.5); Red Blood Cell (RBC) Count 3.46 mill/uL (4.20-5.40); White Blood Cell (WBC) Count 12.3 thou/uL (4.8-10.8)
[2022-05-13 22:56] LABS: ALT (SGPT) 49 U/L (8-55); AST (SGOT) 113 U/L (5-34); Albumin 2.6 g/dL (3.4-4.8); Alkaline Phosphatase 367 U/L (40-110); Anion Gap 26 mmol/L (10-20); BUN (Urea Nitrogen) 47 mg/dL (9.8-20.1); Bilirubin, Total 0.8 mg/dL (0.2-1.2); Calc. Creatinine Clearance 0 mL/min (70-130); Calcium 8.2 mg/dL (7.8-10.44); Carbon Dioxide 21 mmol/L (23-31); Chloride 101 mmol/L (98-107); Estimated GFR 55; Globulin 2.7 g/dL (2.4-3.5); Glucose 87 mg/dL (83-110); Lipase 6 U/L (8-78); Potassium 4.3 mmol/L (3.5-5.1); Protein, Total 5.3 g/dL (5.8-8.1); Sodium 144 mmol/L (136-145)
[2022-05-13 23:03] LABS: #Lymphocytes 1.8 thou/uL (1.20-3.40); #Monocytes 1.4 thou/uL (0.11-0.59); #Neutrophils 9.1 thou/uL (1.40-6.50); %Basophils 0.1 % (0.0-1.0); %Eosinophils 0.1 % (0.0-10.0); %Lymphocytes 14.6 % (21.0-51.0); %Monocytes 11.7 % (0.0-10.0); %Neutrophils 73.5 % (42.0-75.0); MDiff Complete? YES; Macrocytosis SLIGHT = 6-15 cells (100X) (0-5/hpf)
[2022-05-13] MEDS ORDERED: Vancomycin 1 GM/200 ML BAG ONE (23:04)
[2022-05-13] MEDS ORDERED: Cefepime 2 GM VIAL ONE (23:04)
[2022-05-14 01:32] LABS: Actual Bicarbonate (HCO3v) 23 mEq/L (22-28); Analyzer IN Cardio ER; Base Excess 0.9 mEq/L (-2.0 to +3.0); Calcium, Ionized (venous) 0.96 mmol/L (1.16-1.32); Chloride (VBG) 102 mmol/L (98-106); Hemoglobin (Hb) 12.1 g/dL (11.7-16.1); Potassium (VBG) 3.61 mmol/L (3.70-5.30); Sodium 136.2 mmol/L (133-146); pH (venous) 7.51 (7.32-7.43)
[2022-05-14 02:05] LABS: Lactic Acid 8.2 mmol/L (0.5-2.2)
[2022-05-14] MEDS ORDERED: metroNIDAZOLE 500 MG/100 ML BAG ONE ×2 (03:21→13:33)
[2022-05-14 03:37] LABS: Bacteria/HPF 3+ HPF (None Seen); Bilirubin Negative (Negative); Blood, Urine Trace (Negative); Clarity Extra Turbid (Clear); Glucose, Urine (Dipstick) Normal (Negative); Ketone, Urine Negative (Negative); Leukocyte 500 Leu/uL (Negative); Nitrite Negative (Negative); Protein, Urine (Dipstick) 50 mg/dL (Neg-Trace); Specific Gravity, Urine 1.033 (1.002-1.036); Squamous Epithelial 21-50 HPF (0-3); Urobilinogen Normal mg/dL (Less than 2); WBC/HPF Greater than 50 HPF (0-3)
[2022-05-14] MEDS ORDERED: Ondansetron PF 4 MG/2 ML Vial IVP PRN (04:47)
[2022-05-14] MEDS ORDERED: Acetaminophen 325 MG TAB PO PRN (04:47)
[2022-05-14] MEDS ORDERED: Sodium Chloride 0.9% 1,000 ML IV SCH (05:15)
[2022-05-14 05:16] LABS: #Eosinphils 0.1 thou/uL (0.0-0.7); #Lymphocytes 1.4 thou/uL (1.20-3.40); #Monocytes 1.4 thou/uL (0.11-0.59); #Neutrophils 9.3 thou/uL (1.40-6.50); %Basophils 0.3 % (0.0-1.0); %Eosinophils 0.8 % (0.0-10.0); %Lymphocytes 11.7 % (21.0-51.0); %Monocytes 11.5 % (0.0-10.0); %Neutrophils 75.8 % (42.0-75.0); Hemoglobin 11.3 g/dL (12.0-16.0); Mean Corpuscular HGB CONC 31.3 g/dL (32.0-36.0); Mean Corpuscular Hemoglobin 34.2 pg (27.0-31.0); Mean Platelet Volume 8.1 fL (7.4-10.4); Platelet Count 294 thou/uL (130-400); RBC Distribution Width 14.5 % (11.5-14.5); Red Blood Cell (RBC) Count 3.31 mill/uL (4.20-5.40); White Blood Cell (WBC) Count 12.3 thou/uL (4.8-10.8)
[2022-05-14 06:04] LABS: ALT (SGPT) 45 U/L (8-55); AST (SGOT) 111 U/L (5-34); Albumin 2.4 g/dL (3.4-4.8); Alkaline Phosphatase 328 U/L (40-110); Anion Gap 21 mmol/L (10-20); BUN (Urea Nitrogen) 42 mg/dL (9.8-20.1); Bilirubin, Total 0.8 mg/dL (0.2-1.2); Calc. Creatinine Clearance 0 mL/min (70-130); Calcium 7.6 mg/dL (7.8-10.44); Carbon Dioxide 19 mmol/L (23-31); Chloride 106 mmol/L (98-107); Estimated GFR 70; Globulin 2.9 g/dL (2.4-3.5); Glucose 81 mg/dL (83-110); Potassium 3.7 mmol/L (3.5-5.1); Protein, Total 5.3 g/dL (5.8-8.1); Sodium 142 mmol/L (136-145)
[2022-05-14 08:23] LABS: Lactic Acid 4.9 mmol/L (0.5-2.2)
[2022-05-14] MEDS ORDERED: Pantoprazole 40 MG VIAL IVP SCH (09:00)
[2022-05-14] MEDS ORDERED: Cefepime 1 GM in Sodium Chloride 0.9% 100 ML IVPB SCH (09:00)
[2022-05-14] MEDS ORDERED: Cefepime 1 GM VIAL ONE (09:44)
[2022-05-14] MEDS ORDERED: Pantoprazole 40 MG VIAL ONE (09:45)
[2022-05-14] MEDS ORDERED: metroNIDAZOLE 500 MG in Premix Bag 1 BAG IVPB SCH (12:00)
== END 2022-05-14 14:13 | disposition short-term general hospital, planned readmission (82) | DRG 871 ==
LOC: ERS 21:15 → ERHOLD 05-14 02:26
PROVIDERS: ADMIT Internal Medicine; ATTEND Nurse Practitioner Family
PROC: 0D9670Z Drainage of Stomach with Drainage Device, Via Natural or Artificial Opening (ICD-10-PCS; principal; 2022-05-14)
PROC: 3E03329 Introduction of Other Anti-infective into Peripheral Vein, Percutaneous Approach (ICD-10-PCS; 2022-05-14)
DX: A41.9 Sepsis, unspecified organism (principal); G93.41 Metabolic encephalopathy; K56.609 Unspecified intestinal obstruction, unspecified as to partial versus complete obstruction; I69.954 Hemiplegia and hemiparesis following unspecified cerebrovascular disease affecting left non-dominant side; N39.0 Urinary tract infection, site not specified; E87.20 Acidosis, unspecified; R65.20 Severe sepsis without septic shock; Z66 Do not resuscitate; K21.9 Gastro-esophageal reflux disease without esophagitis; E78.00 Pure hypercholesterolemia, unspecified; J44.9 Chronic obstructive pulmonary disease, unspecified; I10 Essential (primary) hypertension; E03.9 Hypothyroidism, unspecified; M10.9 Gout, unspecified; K52.9 Noninfective gastroenteritis and colitis, unspecified; F03.90 Unspecified dementia, unspecified severity, without behavioral disturbance, psychotic disturbance, mood disturbance, and anxiety; Z90.09 Acquired absence of other part of head and neck; Z98.890 Other specified postprocedural states; Z88.8 Allergy status to other drugs, medicaments and biological substances; Z88.1 Allergy status to other antibiotic agents; Z88.2 Allergy status to sulfonamides; Z88.0 Allergy status to penicillin; Z91.011 Allergy to milk products; Z91.013 Allergy to seafood; Z79.51 Long term (current) use of inhaled steroids; Z79.899 Other long term (current) drug therapy; Z79.890 Hormone replacement therapy
CPT/HCPCS: 36415; 51701; 71045; 74177; 80053; 81003; 81015; 82805; 83605; 83690; 84484; 85025; 87040; 87086; 93005; 96365; 96367; C9113; J0692; J3370; J3490; J7050; Q9967